=== PATIENT | male | born 1985 | race Caucasian/White ===

== ENCOUNTER 2021-07-15 16:44 | Emergency (ER) | payer OTHER, SELFPAY ==
[2021-07-15] VITALS (18 sets, daily range): BP systolic 112–146; BP diastolic 58–121; PULSE 77–106; RESP 18–20; TEMP 37.8; O2SAT 92–100
--- NOTE | ~2021-07-15 | CT_ITS ---
EXAMINATION: CT abdomen pelvis w con DATE: 07/15/2021 21:01 INDICATION: Left lower quadrant abdominal pain. TECHNIQUE: Computed tomography (CT) of the abdomen and pelvis was performed with 100 mL Omnipaque-350 intravenous contrast. Automated exposure control and iterative reconstruction technique were employe d. The dose-length product was 1582.45 mGy-cm. COMPARISON: None FINDINGS: Respiratory motion and minimal atelectasis at the lung bases. Heart size is normal. No pericardial or pleural effusion. Liver, gallbladder, spleen, pancreas, bilateral adrenal glands and kidneys are nor mal. Mild diverticulosis with prominent inflammatory stranding surrounding a diverticulum at the mid sigmoid colon consistent with diverticulitis. Small bowel and appendix are normal. Bladder is normal. No abscess or free intraperitoneal gas or fluid. No pathologically enlarged abdominal or pelvic lymp hadenopathy. Small bone island at the left femoral head. IMPRESSION: 1. Radiographically uncomplicated sigmoid diverticulitis. Reviewed, dictated and finalized at location A.
[2021-07-15 17:12] LABS: Basophils Absolute Auto 0.1 K/mm3 (0.0-0.1); Basophils Percent Auto 0.3 % (0.2-1.2); Eosinophils Absolute Auto 0.1 K/mm3 (0-0.3); Eosinophils Percent Auto 0.9 % (0-4.4); Hematocrit 45.5 % (42.0-52.0); Hemoglobin 15.9 g/dL (14.0-18.0); Immature Granulocyte Absolute 0.09 K/mm3 (0.00-0.031); Immature Granulocyte Percent A 0.6 % (0-0.5); Lymphocytes Absolute Auto 1.56 K/mm3 (0.9-3.2); Lymphocytes Percent Auto 9.9 % (18.3-44.2); Mean Corpuscular HGB Conc 34.9 g/dl (32-36); Mean Corpuscular Hemoglobin 30.1 pg (26-34); Mean Platelet Volume 11.3 fl (7.4-10.4); Monocytes Absolute Auto 1.2 K/mm3 (0.1-0.6); Monocytes Percent Auto 7.5 % (2.6-8.5); Neutrophils Absolute Auto 12.7 K/mm3 (1.3-6.7); Neutrophils Percent Auto 80.8 % (45.5-73.1); Platelet Count Result 169 k/mm3 (150-375); Red Blood Count 5.29 M/mm3 (4.6-6.20); Red Cell Distribution Width 12.4 % (11.5-14.5); White Blood Count 15.7 K/mm3 (4.5-10.0)
[2021-07-15 17:17] LABS: Alanine Aminotransferase 40 U/L (4-50); Alkaline Phosphatase 133 U/L (38-126); Anion Gap 13 mmol/L (8-16); Aspartate Amino Transferase 27 U/L (17-59); Bilirubin,Total 1.1 mg/dL (0.2-1.3); Blood Urea Nitrogen 17 mg/dL (9-20); Calcium 9.4 mg/dL (8.4-10.2); Carbon Dioxide 22 mmol/L (22-30); Chloride 105 mmol/L (98-107); Estimated CRCL calculation 101 ml/min; Estimated Glomerular Filt Rate > 60; Glucose 116 mg/dL (65-110); Lipase 126 U/L (23-300); Potassium 4.7 mmol/L (3.4-5.0); Sodium 140 mmol/L (137-145)
[2021-07-15 17:26] LABS: Add Urine Microscopic? NO; Appearance Urine Clear (Clear); Bilirubin Urine Negative (Negative); Blood Urine Negative (Negative); Color Urine Yellow (Yellow); Glucose Urine UA Negative (Negative); Ketones Urine Negative (Negative); Leukocyte Esterase Ur Negative LEU/UL (Negative); Nitrate Urine Negative (Negative); Protein Urine Negative (Negative); Specific Grav Ur 1.026 (1.001-1.035); Urobilinogen Urine Negative mg/dL (<2.0)
[2021-07-15] MEDS: LACTATED RINGERS 1,000 ML 999 ML IV CONT (21:33)
[2021-07-15] MEDS: ONDANSETRON INJ 4 MG/2 ML VIAL IV PUSH (21:33)
[2021-07-15] MEDS: KETOROLAC 30 MG/ML VIAL (*BKC) IV PUSH (21:33)
--- NOTE | 2021-07-15 21:46 | ED.ABDPAIN ---
HPI - Abdominal Pain General Chief Complaint: Abdominal Pain <Sloan Esparza MD - Last Filed: 07/16/21 11:11> Stated Complaint: lower abd pain <Sloan Esparza MD - Last Filed: 07/16/21 11:11> Time Seen by Provider: 07/15/21 19:19 <Sloan Esparza MD - Last Filed: 07/16/21 11:11> Source: patient <Sloan Esparza MD - Last Filed: 07/16/21 11:11> Mode of arrival: ambulatory <Sloan Esparza MD - Last Filed: 07/16/21 11:11> Limitations: no limitations <Sloan Esparza MD - Last Filed: 07/16/21 11:11> History of Present Illness HPI narrative: 35-year-old male Complains of a 1 day history of pain radiating across his lower abdomen Had a normal bowel movement this morning which did not relieve the symptoms They are worse if he moves around or if he leans over and better if he stretches out and lays flat No urinary symptoms He has subjective fevers No vomiting diarrhea or constipation No previous episodes or previous abdominal operations and is otherwise in good health <Sloan Esparza MD - Last Filed: 07/16/21 11:11> Related Data Allergies/Adverse Reactions: Allergies Allergy/AdvReac Type Severity Reaction Status Date / Time No Known Allergies Allergy Verified 07/15/21 23:59 <Sloan Esparza MD - Last Filed: 07/16/21 11:11> Review of Systems Review of Systems: All systems reviewed & are unremarkable except as noted in HPI and below <Sloan Esparza MD - Last Filed: 07/16/21 11:11> Constitutional: Constitutional: Reports no additional constitutional complaints, Reports chills, Reports fever(s) and Denies headache(s) <Sloan Esparza MD - Last Filed: 07/16/21 11:11> Eyes: Eyes: Reports no additional eye complaints and Denies change in vision <Sloan Esparza MD - Last Filed: 07/16/21 11:11> ENT: Denies headache(s) and Denies sore throat <Sloan Esparza MD - Last Filed: 07/16/21 11:11> Cardiovascular: Cardiovascular: Denies chest pain and Denies dyspnea <Sloan Esparza MD - Last Filed: 07/16/21 11:11> Respiratory: Respiratory: Denies cough and Denies dyspnea <Sloan Esparza MD - Last Filed: 07/16/21 11:11> Gastrointestinal: Gastrointestinal: Reports abdominal pain, Denies diarrhea and Denies vomiting <Sloan Esparza MD - Last Filed: 07/16/21 11:11> Genitourinary: Genitourinary: Denies dysuria and Denies urinary frequency <Sloan Esparza MD - Last Filed: 07/16/21 11:11> Musculoskeletal: Musculoskeletal: Denies deformity, Denies arthralgias, Denies joint swelling and Denies numbness <Sloan Esparza MD - Last Filed: 07/16/21 11:11> Integumentary/Breasts: Skin/Breast: Denies rash and Denies wounds <Sloan Esparza MD - Last Filed: 07/16/21 11:11> Neurologic: Denies headache(s), Denies focal weakness and Denies numbness <Sloan Esparza MD - Last Filed: 07/16/21 11:11> Psychiatric: Psychiatric: Reports no additional psychiatric complaints <Sloan Esparza MD - Last Filed: 07/16/21 11:11> Endocrine: Endocrine: Reports no additional endocrine complaints <Sloan Esparza MD - Last Filed: 07/16/21 11:11> Hematologic/Lymphatic: Hematologic/Lymphatic: Reports no additional hematologic/lymphatic complaints <Sloan Esparza MD - Last Filed: 07/16/21 11:11> Allergic/Immunologic: Allergic/Immunologic: Reports no additional allergic/immunologic complaints <Sloan Esparza MD - Last Filed: 07/16/21 11:11> Exam Const: General: cooperative and no acute distress <Sloan Esparza MD - Last Filed: 07/16/21 11:11> Orientation/consciousness: patient oriented x3 (alert) <Sloan Esparza MD - Last Filed: 07/16/21 11:11> HENMT: Head: normal to inspection, normocephalic and atraumatic <Sloan Esparza MD - Last Filed: 07/16/21 11:11> Ears: external ears normal <Sloan Esparza MD - Last Filed: 07/16/21 11:11> General nose exam: no epistaxis <Sloan Esparza MD - Last Filed: 07/16/21 11:11> Eyes: Conjunctivae: conjunctivae normal <Sloan Esparza MD - Last Filed: 07/16/21 11:1
[2021-07-15] MEDS: metroNIDAZOLE 500 MG/ISO 100ML 500 MG/100 ML BAG 100 MG IVPB (22:06)
[2021-07-16 00:07] VITALS: BP 114/70; PULSE 78; RESP 18; TEMP 37.2; O2SAT 100
== END 2021-07-16 00:22 | disposition home or self-care (01) ==
PROVIDERS: Emergency Medicine; Emergency Provider Emergency Medicine
DX: K57.32 Diverticulitis of large intestine without perforation or abscess without bleeding (principal)
CPT/HCPCS: 36415; 74177; 80053; 81003; 83690; 85025; 96365; 96366; 96367; 96375; 99284; J1885; J1956; J2405; J7120; Q9967

== ENCOUNTER 2021-12-08 08:28 | Inpatient (IN) | payer OTHER, SELFPAY ==
[2021-12-08] VITALS (48 sets, daily range): BP systolic 97–135; BP diastolic 40–76; PULSE 77–111; RESP 16–18; TEMP 36.6; O2SAT 95–100; BMI 40.0
--- NOTE | ~2021-12-08 | CT_ITS ---
EXAMINATION: CT abdomen pelvis wo con EXAM DATE: 12/11/2021 17:13 INDICATION: Abdomen pain . TECHNIQUE: Spiral CT of the abdomen and pelvis was performed without contrast. Axial, coronal and s agittal images of the abdomen and pelvis were reviewed. The dose-length product (DLP) for this exami [facility] was 1647.18 mGy-cm. The exposure was tailored according to patient size (auto mA exposure con trol), and iterative reconstruction (ASIR) was used as additional dose reduction technique. Compariso n is made to prior examination from 12/10/2021. FINDINGS: Again there is mesenteric inflammation and some punctate foci of extraluminal gas without g ross free intraperitoneal gas. Focal fluid pocket in the deep aspect of the mesentery measuring about 7 x 3 cm, measured on axial location -273 appears not significant changed. On axial location -323 th ere is another region which appears to be predominantly air-fluid pocket, probably a new abscess comp ared to prior study measuring about 8 x 3 cm, less likely a small bowel loop (this is a noncontrast s tudy). Probably sequela from perforated diverticulitis. Compared to yesterday, development of mild sm all bowel ileus. There is colonic fluid, diarrhea. There is mild splenomegaly. Trace perihepatic ascites. Some dense material within the gallbladder pr obably vicarious excretion of contrast from recent intravenous injection. No biliary obstruction thiago pected. Pancreas, adrenal glands are unremarkable. There is no hydronephrosis. Contrast within the re nal collecting system. The prostate is unremarkable. The bladder is unremarkable. There is no retro peritoneal or pelvic lymphadenopathy. The appendix is normal. Heart normal in size. Trace pericardial and pleural effusions. Bibasilar se gmental atelectasis. There are no osteoblastic or osteolytic lesions identified. IMPRESSION: 1. Findings consistent with perforated diverticulitis, with previously seen deep abscess unchanged b ut also suspicion of newly developed air-fluid level/abscess anteriorly. Measurements have been left for your review. No gross free intraperitoneal gas. 2. Development of ileus. Diarrhea. 3. Mild splenomegaly. Reviewed, dictated and finalized at location G. ING BABYSITTER IMPRESSION: 1. Findings consistent with perforated diverticulitis, with previously seen de ep abscess unchanged but also suspicion of newly developed air-fluid level/absc ess anteriorly. Measurements have been left for your review. No gross free intr aperitoneal gas. 2. Development of ileus. Diarrhea. 3. Mild splenomegaly.
--- NOTE | ~2021-12-08 | XR_ITS ---
XR abdomen NG/feed tube rechec INDICATION: Evaluate NG tube position. TECHNIQUE: Limited KUB perform for evaluating NG tube . COMPARISON: 12/14/2021 FINDINGS: NG tube tip in the stomach, side port above the GE junction. There are dilated small bowel loops in the upper abdomen. Small right pleural effusion.. IMPRESSION: 1: NG tube tip in the stomach, side port above the GE junction. Recommend advancement 4-5 cm. Reviewed, dictated and finalized at location B. ANICAL ADJUSTER IMPRESSION: 1: NG tube tip in the stomach, side port above the GE junction. Recommend adva ncement 4-5 cm.
--- NOTE | ~2021-12-08 | XR_ITS ---
XR abdomen obstructive series 12/13/2021 08:06 Indication: Bloating, nausea and vomiting Procedure: Supine and upright views of abdomen Comparison: No prior studies for comparison. Findings: There are dilated small bowel loops with air-fluid levels, consistent with small bowel obst ruction. The colon is relatively gasless. There is suggestion of free air in the left upper abdomen. There is bibasilar atelectasis. Impression: 1: Small bowel obstruction.. 2: Possible free intraperitoneal air left upper abdomen, which would correspond to known perforated d iverticulitis or recent surgery. Clinically correlate. Reviewed, dictated and finalized at location A. O GAME SCRIPT WRITER Impression: 1: Small bowel obstruction.. 2: Possible free intraperitoneal air left upper abdomen, which would correspond to known perforated diverticulitis or recent surgery. Clinically correlate.
--- NOTE | ~2021-12-08 | XR_ITS ---
EXAMINATION: XR chest 2V DATE: 12/09/2021 09:58 INDICATION: Abnormal abdominal CT TECHNIQUE: Frontal and lateral views of the chest are obtained COMPARISON: CT from yesterday FINDINGS: Minimal airspace opacities of the lung bases are unchanged. There is no pleural effusion or pneumothorax. The cardiomediastinal silhouette is normal. The visualized bones and soft tissues are unremarkable. IMPRESSION: 1. Stable bibasilar airspace opacities, consistent with atelectasis versus pneumonia. Reviewed, dictated and finalized at location A. TIAN BLIND MACHINE OPERATOR IMPRESSION: 1. Stable bibasilar airspace opacities, consistent with atelectasis versus pneu monia.
--- NOTE | ~2021-12-08 | US_ITS ---
EXAMINATION: US venous doppler [facility] DATE: 12/21/2021 11:45 INDICATION: Left forearm swelling. TECHNIQUE: Grayscale ultrasound images without and with compression and Doppler ultrasound images of the left upper extremity veins were obtained. COMPARISON: None. FINDINGS: The visualized portions of the left internal jugular vein, subclavian vein, axillary vein, brachial v eins, basilic vein, cephalic vein, radial vein, and ulnar vein are patent. There is a thrombosed supe rficial vein in the forearm. IMPRESSION: 1. No deep venous thrombosis. 2. Thrombosed superficial vein in the forearm. Reviewed, dictated and finalized at location A. SFER DRIVER
--- NOTE | ~2021-12-08 | XR_ITS ---
EXAMINATION: XR abdomen NG/feed tube insert DATE: 12/15/2021 12:55 INDICATION: Nasogastric tube insertion TECHNIQUE: A supine view of the abdomen and lower chest was obtained for evaluation of feeding tube placement. COMPARISON: 12/14/2021 FINDINGS: Nasogastric tube coiled at the fundus of the stomach. Persistent mildly dilated gas-filled loops of b owel in the upper abdomen consistent with ileus versus obstruction. Atelectasis linear opacities at t he bilateral lung bases and favor atelectasis over pneumonia. Heart size is normal. IMPRESSION: 1. Nasogastric tube in stomach. 2. Persistent ileus versus obstruction. Reviewed, dictated and finalized at location A. ND OF THE COURT
--- NOTE | ~2021-12-08 | CT_ITS ---
EXAMINATION: CT abdomen pelvis w con DATE: 12/08/2021 10:15 INDICATION: Epigastric abdominal pain, nausea. History of sigmoid diverticulitis TECHNIQUE: Computed tomography (CT) of the abdomen and pelvis was performed with 100 cc Omnipaque 350 intravenous contrast. Automated exposure control and iterative reconstruction technique were employe d. Exam dose: 1325.03 mGy-cm total exam DLP. COMPARISON: 07/15/2021 CT abdomen pelvis FINDINGS: There is lingular and bilateral lower lobe patchy infiltrate and/or atelectasis. 3.7 mm mid dle lobe nodular density (series 4 image 4). Normal heart size. No pericardial or pleural effusion. The liver, gallbladder, bile ducts, pancreas and pancreatic duct and adrenal glands appear normal. Th ere is splenomegaly, spleen measuring up to 17 cm vertical dimension. No renal mass lesion or urinary tract calculus or hydroureteronephrosis. The urinary bladder is unrem arkable. Normal caliber of the abdominal aorta. No intraperitoneal or retroperitoneal or pelvic mass lesion or adenopathy or ascites. Normal appendix. There is thickening of the wall of the mid sigmoid colon with prominent surrounding pericolic fat str anding, likely consistent with sigmoid diverticulitis. No drainable abscess cavity is identified. Dif ferential diagnosis includes less likely possibility of perforated sigmoid colon cancer. There is a small amount of fluid in the paracolic gutters, mesentery and dependent pelvis. Prostate calcifications. The urinary bladder is unremarkable. Small fat-containing umbilical hernia. No suspicious osteolytic or osteoblastic lesions. IMPRESSION: Lingular and bilateral lower lobe patchy infiltrate and/atelectasis 3.7 mm nonspecific middle lobe nodular density Splenomegaly Thickening of the wall of the mid sigmoid colon and prominent surrounding pericolic fat stranding, li ericka due to sigmoid diverticulitis. Less likely would be perforated sigmoid colon cancer. Prostate calcifications Reviewed, dictated and finalized at Location A. Reviewed, dictated and finalized at location B. CTIC DOCTOR IMPRESSION: Lingular and bilateral lower lobe patchy infiltrate and/atelectasi s 3.7 mm nonspecific middle lobe nodular density Splenomegaly Thickening of the wall of the mid sigmoid colon and prominent surrounding peric olic fat stranding, likely due to sigmoid diverticulitis. Less likely would be perforated sigmoid colon cancer. Prostate calcifications
--- NOTE | ~2021-12-08 | CT_ITS ---
EXAMINATION: CT abdomen pelvis w con INDICATION: Diverticulitis, abdominal pain TECHNIQUE: Computed tomographic images of the abdomen and pelvis were obtained after the administrati on of 100 cc of Omnipaque 350 intravenous contrast. The dose-length product (DLP) was 1457.99 mGy-cm. Automated exposure control and iterative reconstruction technique were employed. COMPARISON: 12/08/2021 FINDINGS: There are trace pleural effusions. Airspace opacities are present in the visualized lung ba ses. The heart size is normal. The enlarged spleen measures up to 17.4 cm. The liver, pancreas, gallb ladder, and adrenal glands are normal. The kidneys are unremarkable. No pathologically enlarged abdom inal or pelvic lymph nodes are identified. There is persistent wall thickening in the sigmoid colon. Wall thickening is developed and portions of the small bowel. There is an approximately 9.3 x 3.4 cm abscess of the small bowel mesentery. Free fluid is also seen elsewhere in the small bowel mesentery in the right lower quadrant. There is free intraperitoneal gas in the small bowel mesentery which tra cks into the right upper quadrant. There is a fat-containing umbilical hernia. IMPRESSION: 1. Persistent sigmoid diverticulitis with interval development of bowel perforation and abscess of th e small bowel mesentery measuring up to 9.3 cm. Surgical evaluation is recommended. These findings an d recommendations were discussed with Tara Rowan PA-C at 1312 hours on 12/10/2021. 2. Bibasilar airspace opacities, consistent with atelectasis versus pneumonia. Reviewed, dictated and finalized at location A. GENCY MEDICINE SPECIALIST IMPRESSION: 1. Persistent sigmoid diverticulitis with interval development of bowel perfora tion and abscess of the small bowel mesentery measuring up to 9.3 cm. Surgical evaluation is recommended. These findings and recommendations were discussed wi Tara Rowan PA-C at 1312 hours on 12/10/2021. 2. Bibasilar airspace opacities, consistent with atelectasis versus pneumonia.
--- NOTE | ~2021-12-08 | XR_ITS ---
XR abdomen NG/feed tube insert 12/14/2021 11:07 Indication: NG tube placement Procedure: KUB Comparison: 12/13/2021 Findings: NG tube tip in the esophagus. There are dilated small bowel loops with air-fluid levels, co nsistent with obstruction. There is bibasilar atelectasis. Impression: 1: NG tube tip in the esophagus. Recommend advancement. 2: Small bowel obstruction. Reviewed, dictated and finalized at location B. DING RIGGER Impression: 1: NG tube tip in the esophagus. Recommend advancement. 2: Small bowel obstruction.
--- NOTE | 2021-12-08 08:53 | ED.ABDPAIN ---
HPI - Abdominal Pain General Chief Complaint: Abdominal Pain Stated Complaint: abdominal pain Time Seen by Provider: 12/08/21 08:44 Source: patient Mode of arrival: ambulatory Limitations: no limitations History of Present Illness HPI narrative: Patient is a 36-year-old male complaining of abdominal pain, epigastric, and left lower quadrant, 6 out of 10, burning, nonradiating, accompanied by nausea started this morning. Patient has a history of diverticulitis. Patient denies any chest pain, shortness of breath, vomiting, diarrhea, fever or chills. Related Data Home Medications Medication Instructions Recorded Confirmed No Home Medications 12/08/21 12/08/21 Allergies Allergy/AdvReac Type Severity Reaction Status Date / Time No Known Allergies Allergy Verified 12/08/21 08:44 Review of Systems Review of Systems: All systems reviewed & are unremarkable except as noted in HPI and below Constitutional: Constitutional: Denies body ache(s), Denies chills, Denies excessive sweating, Denies fatigue, Denies fever(s), Denies headache(s), Denies lethargy, Denies malaise, Denies weakness and Denies weight loss Eyes: Eyes: Denies blurry vision, Denies change in vision and Denies loss of vision ENT: Denies dizziness, Denies ear discharge, Denies headache(s), Denies lip swelling, Denies epistaxis, Denies nasal congestion, Denies neck pain, Denies throat swelling and Denies tongue swelling Cardiovascular: Cardiovascular: Denies chest pain, Denies chest pain at rest, Denies chest pain with activity, Denies diaphoresis, Denies rapid heart rate, Denies edema, Denies irregular heart rhythm, Denies lightheadedness, Denies palpitations, Denies dyspnea and Denies dyspnea on exertion Respiratory: Respiratory: Denies chest congestion, Denies cough, Denies hemoptysis, Denies dyspnea and Denies dyspnea on exertion Gastrointestinal: Gastrointestinal: Denies melena, Denies hematochezia, Denies diarrhea, Denies nausea, Denies vomiting and Denies hematemesis Musculoskeletal: Musculoskeletal: Denies abnormal gait, Denies deformity, Denies joint swelling, Denies limited range of motion, Denies neck pain and Denies numbness Neurologic: Denies Abnormal speech present, Denies abnormal gait, Denies confusion, Denies dizziness, Denies headache(s), Denies focal weakness, Denies loss of vision, Denies numbness, Denies Other visual disturbances, Denies Sensory deficit (Neuro) and Denies weakness Psychiatric: Psychiatric: Denies confusion, Denies depression, Denies auditory hallucinations, Denies homicidal ideation and Denies suicidal ideation Endocrine: Endocrine: Denies cold intolerance, Denies excessive sweating, Denies fatigue, Denies heat intolerance and Denies palpitations Hematologic/Lymphatic: Hematologic/Lymphatic: Denies easy bleeding and Denies easy bruising Allergic/Immunologic: Allergic/Immunologic: Denies lip swelling, Denies throat swelling and Denies tongue swelling PMFSH Comments Past medical history: Diverticulitis Family history: Unknown Social history: Non-smoker no EtOH or drug use Exam Const: General: cooperative, healthy appearing, comfortable, no acute distress, well developed, alert and awake; No confusion Orientation/consciousness: oriented to person, oriented to place, oriented to time, patient oriented x3 and No confusion Limitations: no limitations HENMT: Head: normal to inspection, normocephalic and atraumatic Ears: hearing grossly normal bilaterally, TM normal on the right and TM normal on the left General nose exam: Normal external nose present, Normal nares present and No nasal discharge present Face and sinus: normal facial exam Mouth: Yes Normal oral and palatal mucosa present, Yes lip normal, Yes tongue normal and Yes oropharynx normal Throat: posterior oropharynx normal, tonsils normal and uvula midline Eyes: General: appearance normal, both eyes and all related structures Pupils: Equal, round and reactive pupils pre
[2021-12-08] MEDS: SODIUM CHLORIDE 0.9% IV 1,000 ML 999 ML IV CONT (09:04)
[2021-12-08 09:06] LABS: Basophils Absolute Auto 0.1 K/mm3 (0.0-0.1); Basophils Percent Auto 0.4 % (0.2-1.2); Eosinophils Absolute Auto 0.2 K/mm3 (0-0.3); Hematocrit 44.9 % (42.0-52.0); Hemoglobin 15.4 g/dL (14.0-18.0); Immature Granulocyte Absolute 0.06 K/mm3 (0.00-0.031); Immature Granulocyte Percent A 0.4 % (0-0.5); Lymphocytes Absolute Auto 1.84 K/mm3 (0.9-3.2); Mean Corpuscular HGB Conc 34.3 g/dl (32-36); Mean Corpuscular Hemoglobin 28.9 pg (26-34); Mean Corpuscular Volume 84.2 fl (80-100); Mean Platelet Volume 11.9 fl (7.4-10.4); Monocytes Absolute Auto 0.8 K/mm3 (0.1-0.6); Monocytes Percent Auto 5.1 % (2.6-8.5); Neutrophils Absolute Auto 12.4 K/mm3 (1.3-6.7); Neutrophils Percent Auto 81.1 % (45.5-73.1); Platelet Count Result 177 k/mm3 (150-375); Red Blood Count 5.33 M/mm3 (4.6-6.20); Red Cell Distribution Width 13.5 % (11.5-14.5); White Blood Count 15.3 K/mm3 (4.5-10.0)
[2021-12-08] MEDS: PROMETHAZINE HCL 25 MG/ML AMPUL 12.5 MG IV PUSH (09:20)
[2021-12-08] MEDS: KETOROLAC 30 MG/ML VIAL (*BKC) IV PUSH (09:20)
[2021-12-08 09:49] LABS: Alanine Aminotransferase 46 U/L (4-50); Albumin Level 3.9 g/dL (3.5-5.1); Alkaline Phosphatase 107 U/L (38-126); Anion Gap 7 mmol/L (8-16); Aspartate Amino Transferase 29 U/L (17-59); Bilirubin,Total 0.9 mg/dL (0.2-1.3); Blood Urea Nitrogen 12 mg/dL (9-20); Calcium 9.4 mg/dL (8.4-10.2); Carbon Dioxide 22 mmol/L (22-30); Chloride 108 mmol/L (98-107); Estimated CRCL calculation 113 ml/min; Estimated Glomerular Filt Rate > 60; Glucose 114 mg/dL (65-110); Lipase 118 U/L (23-300); Potassium 4.2 mmol/L (3.4-5.0); Sodium 137 mmol/L (137-145)
[2021-12-08 09:49] LABS: Alanine Aminotransferase 50 U/L (4-50); Albumin Level 4.3 g/dL (3.5-5.1); Alkaline Phosphatase 109 U/L (38-126); Anion Gap 8 mmol/L (8-16); Aspartate Amino Transferase 38 U/L (17-59); Blood Urea Nitrogen 12 mg/dL (9-20); Carbon Dioxide 21 mmol/L (22-30); Chloride 108 mmol/L (98-107); Estimated CRCL calculation 113 ml/min; Estimated Glomerular Filt Rate > 60; Glucose 111 mg/dL (65-110); Lipase 120 U/L (23-300); Potassium 4.5 mmol/L (3.4-5.0); Sodium 137 mmol/L (137-145)
[2021-12-08 10:27] LABS: Add Urine Microscopic? NO; Appearance Urine Clear (Clear); Bilirubin Urine Negative (Negative); Blood Urine Negative (Negative); Color Urine Yellow (Yellow); Glucose Urine UA Negative (Negative); Ketones Urine Negative (Negative); Leukocyte Esterase Ur Negative LEU/UL (Negative); Nitrate Urine Negative (Negative); Protein Urine Negative (Negative); Specific Grav Ur 1.027 (1.001-1.035); Urobilinogen Urine Negative mg/dL (<2.0)
[2021-12-08] MEDS: metroNIDAZOLE 500 MG/ISO 100ML 500 MG/100 ML BAG 100 MG IVPB (11:56)
[2021-12-08] MEDS: HYDROmorphone HCL INJ (*CRX) 1 MG/ML SYR IV PUSH (12:21)
[2021-12-08] MEDS: SODIUM CHLORIDE 0.9% IV 1,000 ML 999 ML (12:21)
[2021-12-08] MEDS: HYDROmorphone HCL INJ (*CRX) 1 MG/ML SYR 0.5 MG IV PUSH ×2 (15:46→20:48)
--- NOTE | 2021-12-08 16:37 | ADMGEN ---
This patient, Hernandez Clayton, was admitted to Medical Room 347-. Patient/family oriented to hospital policies and general routines including ID bracelet, bed and alarms, visiting hours, pain management, procedures, bathroom and other care routines, personal items, smoking policy, room service/diet, and visiting hours. Information on how to activate the Rapid Response Team has been discussed. Patient/Family are encouraged to report perceived risks to care and to ask questions if they do not understand what they are told or what they should do.
[2021-12-08] MEDS: SODIUM CHLORIDE 0.9% IV 1,000 ML 125 ML IV CONT (17:00)
--- NOTE | 2021-12-08 21:38 | PM.IMHP ---
H&P: HPI History of Present Illness Date/Time: 12/08/21 2100 this is a 36-year-old male patient who has had 2 other episodes of diverticulitis. The patient stated he has been taking a high-fiber diet and avoiding seeds. The patient stated that he woke up early this morning and had severe abdominal pain to the lower abdomen and the patient stated this was similar to his previous episode with diverticulitis. The patient stated his pain was 6/10 and he was also nauseated as well. He denies any fever chills or any chest pain. Abdominal pelvis CT was read as the following Lingular and bilateral lower lobe patchy infiltrate and/atelectasis 3.7 mm nonspecific middle lobe nodular density Splenomegaly Thickening of the wall of the mid sigmoid colon and prominent surrounding pericolic fat stranding, likely due to sigmoid diverticulitis. Less likely would be perforated sigmoid colon cancer. Prostate calcifications The patient was started on IV fluids, Toradol, Phenergan, Rocephin, Dilaudid, and Flagyl. The patient is being admitted to observation status on the date of service of 12/08/2021. Chief Complaint: Abdominal pain Review of Systems Review of Systems: All systems reviewed & are unremarkable except as noted in HPI and below Constitutional: Constitutional: Reports as per HPI and Reports no additional constitutional complaints Eyes: Eyes: Reports as per HPI and Reports no additional eye complaints ENT: Reports system reviewed and no additional complaints, except as documented and Reports Normal hearing present Cardiovascular: Cardiovascular: Reports no additional cardiovascular complaints Respiratory: Respiratory: Reports no additional respiratory complaints and Reports no additional respiratory complaints Gastrointestinal: Gastrointestinal: Reports as per HPI and Reports no additional gastrointestinal complaints Musculoskeletal: Musculoskeletal: Reports no additional musculoskeletal complaints Integumentary/Breasts: Skin/Breast: Reports system reviewed and no additional complaints, except as docu and Reports as per HPI Neurologic: Reports system reviewed and no additional complaints, except as documented, Reports as per HPI and Reports Normal hearing present Psychiatric: Psychiatric: Reports no additional psychiatric complaints and Reports as per HPI Endocrine: Endocrine: Reports no additional endocrine complaints Hematologic/Lymphatic: Hematologic/Lymphatic: Reports no additional hematologic/lymphatic complaints Allergic/Immunologic: Allergic/Immunologic: Reports no additional allergic/immunologic complaints [facility] Past Medical History Medical History (Updated 12/08/21 @ 21:41 by Mya Conte NP) History of diverticulosis Surgical History Surgical History (Updated 12/08/21 @ 21:41 by Mya Conte NP) History of tonsillectomy Family History Family History Mother Diabetes mellitus Other Chronic obstructive pulmonary disease Social History Social History (Updated 12/08/21 @ 21:43 by Mya Conte NP) Social History: The patient lives with his who is a director surgical here. She is his durable power consumer attorney for healthcare. The patient has 3 children. He is currently employed at [employer] and is a former smoker. Socially drinks alcohol. Code status full code Smoking packs per day: 2 Smoking cigarettes per day: 40.0 Years smoked: 5 Smoking pack-years: 10.00 Smoking status: Former smoker Tobacco type: cigarettes Second hand tobacco smoke exposure: Yes Alcohol intake: current Drinks per week: 2 Substance use: never Spiritual care concerns: No Meds Home Medications and Allergies Home Medications Medication Instructions Recorded Confirmed Type No Home Medications 12/08/21 12/08/21 History Allergies Allergy/AdvReac Type Severity Reaction Status Date / Time No Known Allergies Allergy Veri
[2021-12-09] MEDS: HYDROmorphone HCL INJ (*CRX) 1 MG/ML SYR 0.5 MG IV PUSH ×6 (01:32→23:51)
[2021-12-09] MEDS: SODIUM CHLORIDE 0.9% IV 1,000 ML 125 ML IV CONT ×2 (01:32→08:19)
[2021-12-09] MEDS: KETOROLAC 15 MG/ML VIAL (*BKC) IV PUSH ×2 (03:54→11:51)
[2021-12-09 05:53] LABS: Basophils Percent Auto 0.3 % (0.2-1.2); Eosinophils Percent Auto 0.1 % (0-4.4); Hematocrit 37.7 % (42.0-52.0); Hemoglobin 12.7 g/dL (14.0-18.0); Immature Granulocyte Percent A 0.7 % (0-0.5); Lymphocytes Absolute Auto 1.72 K/mm3 (0.9-3.2); Lymphocytes Percent Auto 12.3 % (18.3-44.2); Mean Corpuscular HGB Conc 33.7 g/dl (32-36); Mean Corpuscular Hemoglobin 28.9 pg (26-34); Mean Corpuscular Volume 85.7 fl (80-100); Mean Platelet Volume 11.4 fl (7.4-10.4); Monocytes Absolute Auto 0.8 K/mm3 (0.1-0.6); Monocytes Percent Auto 5.8 % (2.6-8.5); Neutrophils Absolute Auto 11.4 K/mm3 (1.3-6.7); Neutrophils Percent Auto 80.8 % (45.5-73.1); Platelet Count Result 124 k/mm3 (150-375); Red Cell Distribution Width 13.3 % (11.5-14.5)
[2021-12-09 05:57] LABS: Alanine Aminotransferase 35 U/L (4-50); Albumin Level 3.5 g/dL (3.5-5.1); Alkaline Phosphatase 73 U/L (38-126); Anion Gap 8 mmol/L (8-16); Aspartate Amino Transferase 22 U/L (17-59); Bilirubin,Total 2.7 mg/dL (0.2-1.3); Blood Urea Nitrogen 11 mg/dL (9-20); Calcium 8.3 mg/dL (8.4-10.2); Carbon Dioxide 22 mmol/L (22-30); Chloride 103 mmol/L (98-107); Estimated CRCL calculation 98 ml/min; Estimated Glomerular Filt Rate > 60; Glucose 115 mg/dL (65-110); Lactate Dehydrogenase 377 U/L (313-618); Magnesium 1.3 mg/dL (1.6-2.3); Potassium 3.8 mmol/L (3.4-5.0); Sodium 133 mmol/L (137-145)
[2021-12-09 05:58] LABS: Lactic Acid Reflex 0.7 mmol/L (0.7-2.1)
[2021-12-09 06:36] VITALS: BP 113/65; PULSE 103; RESP 17; TEMP 36.2; O2SAT 95
[2021-12-09] MEDS: FAMOTIDINE 20 MG/2 ML VIAL IV PUSH ×2 (08:19→20:29)
[2021-12-09] MEDS: MAGNESIUM SULF 2 GM/WATER 50ML 2 GM/50 ML BAG IVPB (10:32)
--- NOTE | 2021-12-09 13:09 | PM.IMPN ---
Progress Note: A&P Assessment and Plan (1) Acute diverticulitis: Code(s): K57.92 - Diverticulitis of intestine, part unspecified, without perforation or abscess without bleeding Status: Acute Assessment and Plan: History of diverticulitis presented with diffuse abdominal pain CT abdomen/pelvis showed thickening of the mid sigmoid colon wall and prominent pericolic fat stranding related to sigmoid diverticulitis Continue IV Zosyn Continue IV fluids WBC improving Advance to clear liquid diet Supportive care. Analgesics and anti in available as needed. CT findings most likely to be consistent with diverticulitis though perforated sigmoid colon cancer cannot be ruled out. Discussed with the patient that he will need colonoscopy upon resolution of acute episode of diverticulitis for further evaluation. He has never had a colonoscopy before (2) Abnormal CXR: Code(s): R93.89 - Abnormal findings on diagnostic imaging of other specified body structures Status: Acute Assessment and Plan: CT on presentation showed patchy infiltrates of the bilateral lower lobes and CXR showed stable bibasilar airspace opacities Clinical presentation not consistent with pneumonia. Patient is asymptomatic Findings likely related to atelectasis. Incentive spirometry to be provided (3) Hypomagnesemia: Code(s): E83.42 - Hypomagnesemia Status: Acute Assessment and Plan: Magnesium 1.3 this morning Administer 2 g IV magnesium sulfate Continue to monitor Subjective Date/time seen: 12/09/21 13:09 Interval history: Date of service: 12/09/2021 Hernandez Clayton is a 36 year old male with a history of diverticulitis who is seen in follow up for an episode of acute diverticulitis. The patient states this first started in Jun 2021 when he was seen in the ED and diagnosed with diverticultis. He was discharged with a week course of antibiotics that he completed about half of and did not have follow up care. In September 2021 he had another episode and took the rest of the antibiotics from his first episode. His symptoms improved and he did not seek care. He has changed his diet and removed nuts and seeds. He also notes that he was implemented dietary and lifestyle changes and has lost about 30 lbs. Now his symptoms have returned. He endorses diffuse abdominal pain from the epigastric region down to his waist line. He rates his pain as 7-9/10. It has not improved from a 7 since admission. He notes no improvement in his symptoms today. He had one episode of diarrhea today. No blood in his stool. He has been having ice chips and tolerating this well but states he is scared to eat or drink anything due to the pain. He has been having episodes of feeling hot and diffuse sweating throughout the day. He does not feel feverish. Denies chills or rigors. He denies nausea or vomiting. He has difficulty getting out of bed because the movement causes abdominal pain. He is also not able to take deep breaths due to the pain. He has been able to get up and walk to the bathroom. He denies dizziness or lightheadedness with ambulation. No chest pain or palpitations. He denies shortness of breath, cough. Denies sick contacts. Completed his COVID vaccination. Review of Systems Review of Systems: All systems reviewed & are unremarkable except as noted in HPI and below Exam Narrative: General: Well-nourished, well-appearing 36 year-old male, sitting up in bed, appears uncomfortable, NARD, diaphoretic Neuro: awake, alert and oriented x4, speech clear, no focal neuro deficits noted HEENMT: normocephalic, atraumatic, EOMI, sclerae anicteric, moist oral mucosa Respiratory: clear to auscultation bilaterally, nonlabored breathing Cardio: regular rate, regular rhythm with S1-S2 Abdomen: nondistended, normoactive bowel sounds, soft, diffusely tender to light palpation, no rigidity or guarding Extremities: no edema, erythema, or te
[2021-12-09 14:00] VITALS: BP 135/77; PULSE 109; RESP 16; TEMP 36.8; O2SAT 96
[2021-12-09] MEDS: HYDROcodone/acetaminophen (*CRX) 5-325 MG TABLET 1 TAB PO ×2 (14:33→20:29)
[2021-12-09] MEDS: SODIUM CHLORIDE 0.9% IV 1,000 ML 100 ML IV CONT (18:25)
[2021-12-09 20:29] VITALS: RESP 18; O2SAT 94
[2021-12-09 21:21] VITALS: BP 124/72; PULSE 120; RESP 17; TEMP 37.1; O2SAT 94
[2021-12-10] MEDS: HYDROcodone/acetaminophen (*CRX) 5-325 MG TABLET 1 TAB PO ×4 (00:51→13:02)
[2021-12-10] MEDS: HYDROmorphone HCL INJ (*CRX) 1 MG/ML SYR 0.5 MG IV PUSH ×2 (04:06→08:17)
[2021-12-10] MEDS: SODIUM CHLORIDE 0.9% IV 1,000 ML 100 ML IV CONT ×2 (05:24→17:47)
[2021-12-10 05:32] VITALS: BP 128/74; PULSE 104; RESP 18; TEMP 37.7; O2SAT 94
[2021-12-10 05:57] LABS: Hematocrit 36.9 % (42.0-52.0); Hemoglobin 12.4 g/dL (14.0-18.0); Immature Platelet Fraction Pct 4.7 % (0.9-11.2); Mean Corpuscular HGB Conc 33.6 g/dl (32-36); Mean Corpuscular Volume 86.4 fl (80-100); Mean Platelet Volume 11.2 fl (7.4-10.4); Platelet Count Result 120 k/mm3 (150-375); Red Blood Count 4.27 M/mm3 (4.6-6.20); Red Cell Distribution Width 13.3 % (11.5-14.5); White Blood Count 10.9 K/mm3 (4.5-10.0)
[2021-12-10 06:02] LABS: Anion Gap 6 mmol/L (8-16); Blood Urea Nitrogen 8 mg/dL (9-20); Calcium 8.4 mg/dL (8.4-10.2); Carbon Dioxide 22 mmol/L (22-30); Chloride 104 mmol/L (98-107); Estimated CRCL calculation 107 ml/min; Estimated Glomerular Filt Rate > 60; Glucose 116 mg/dL (65-110); Sodium 132 mmol/L (137-145)
[2021-12-10] MEDS: FAMOTIDINE 20 MG/2 ML VIAL IV PUSH ×2 (09:31→20:07)
--- NOTE | 2021-12-10 10:48 | PM.IMPN ---
Progress Note: A&P Assessment and Plan (1) Acute diverticulitis: Code(s): K57.92 - Diverticulitis of intestine, part unspecified, without perforation or abscess without bleeding Status: Acute Assessment and Plan: History of diverticulitis presented with diffuse abdominal pain CT abdomen/pelvis showed thickening of the mid sigmoid colon wall and prominent pericolic fat stranding related to sigmoid diverticulitis Continue IV Zosyn Continue IV fluids He has had no symptomatic improvement following 2 days of IV antibiotics therefore will repeat CT a/p today with contrast WBC improving, 10.9 today Clear liquid diet Supportive care. Analgesics and antiemeetics available as needed. CT findings most likely to be consistent with diverticulitis though perforated sigmoid colon cancer cannot be ruled out. Discussed with the patient that he will need colonoscopy upon resolution of acute episode of diverticulitis for further evaluation. He has never had a colonoscopy before Updated: Received call from radiologist, Dr. Johns regarding repeat CT findings. CT shows persistent sigmoid diverticulitis with interval development of bowel perforation and abscess of the small bowel mesentery measuring 9.3 x 3.4 cm. I spoke with general surgeon, Dr. Aguirre, who will evaluate the patient. NPO diet. Patient and updated on findings. (2) Abnormal CXR: Code(s): R93.89 - Abnormal findings on diagnostic imaging of other specified body structures Status: Acute Assessment and Plan: CT on presentation showed patchy infiltrates of the bilateral lower lobes and CXR showed stable bibasilar airspace opacities Clinical presentation not consistent with pneumonia. Patient is asymptomatic Findings likely related to atelectasis. Continue incentive spirometry (3) Hypomagnesemia: Code(s): E83.42 - Hypomagnesemia Status: Acute Assessment and Plan: Resolved. Magnesium 2.0 today Continue to monitor Subjective Date/time seen: 12/10/21 10:48 Interval history: Date of service: 12/10/2021 Hernandez Clayton is a 36 year old male with a history of diverticulitis who is seen in follow up for an episode of acute diverticulitis. He has had no improvement today. He continues to endorse severe diffuse abdominal pain that is worst in his right lower quadrant. He endorses abdominal fullness and feels significantly bloated. He also describes abdominal soreness/tenderness that is worse with any and all movements, deep breaths, or coughing. He is not able to take a full breath because this causes abdominal pain. He denies fever or chills. He has been able to tolerate clear liquids. He has had Jello and an ice pop. He did not have any worsening of his symptoms after introducing liquids. His pain has been poorly controlled. Denies dizziness or lightheadedness. Denies nausea or vomiting. Still endorsing sweats but feels this has improved. He denies palpitations. No chest pain. The patient's , Carol, was visiting earlier and I received a call from the RN that she had questions. She unfortunately had to leave before I was able to see the patient so I spoke with her on the phone to provide updates and answer questions. Review of Systems Review of Systems: All systems reviewed & are unremarkable except as noted in HPI and below Exam Narrative: General: Well-nourished, well-appearing 36 year-old male, sitting up in bed, appears uncomfortable, NARD Neuro: awake, alert and oriented x4, speech clear, no focal neuro deficits noted HEENMT: normocephalic, atraumatic, EOMI, sclerae anicteric, moist oral mucosa Respiratory: clear to auscultation bilaterally, nonlabored breathing, no conversational dyspnea, taking shallow breaths Cardio: regular rate, regular rhythm with S1-S2 Abdomen: protuberant, normoactive bowel sounds, soft, diffusely tender to light palpation, no rigidity or guarding Extremities: no edema,
[2021-12-10 11:08] VITALS: BMI 40.0
[2021-12-10] MEDS: HYDROmorphone HCL INJ (*CRX) 1 MG/ML SYR IV PUSH ×4 (11:50→22:37)
[2021-12-10 14:19] VITALS: BP 143/77; PULSE 110; RESP 18; TEMP 36.1; O2SAT 94
--- NOTE | 2021-12-10 15:19 | PM.CNGS ---
Assessment and Plan Assessment and plan (1) Perforation of sigmoid colon due to diverticulitis: Code(s): K57.20 - Diverticulitis of large intestine with perforation and abscess without bleeding Status: Acute Assessment and Plan: imaging reviewed c radiologist, seems like microperforation c some mild free fluid (no obvious abscess formed), cont conservative mgmt c IV abx, IV analgesia, serial exams/labs, d/w pt and need for emergent surgical intervention if no improvement and/or worsening History of Present Illness Consult details Consult date: 12/10/21 Reason for consult: abdominal pain Requesting physician: Tara Rowan PA-C Narrative: The patient is a 36-year-old male with a history of diverticulitis presenting to the hospital complaining of severe lower abdominal pain, right greater than left. The patient reports his 1st episode of diverticulitis started in June and he was treated with antibiotics. The patient report he admittedly did not finish the course of antibiotics that was prescribed. The patient reports over the last few months he continued to have intermittent pain in his lower abdomen. The patient reports a 30 lb weight loss since June. The patient re-presented to the hospital early this week with worsening pain. The patient had imaging consistent with uncomplicated acute diverticulitis. The patient reports since admission he has continued to have severe pain. Repeat imaging today is significant for micro perforation. Review of Systems Review of Systems: All systems reviewed & are unremarkable except as noted in HPI and below Constitutional: Constitutional: Reports as per HPI, Reports anorexia, Reports chills, Reports excessive sweating, Reports fatigue, Reports fever(s), Reports lethargy, Reports night sweats, Reports poor appetite, Reports weakness and Reports weight loss Eyes: Eyes: Reports no additional eye complaints ENT: Reports system reviewed and no additional complaints, except as documented Cardiovascular: Cardiovascular: Reports no additional cardiovascular complaints Respiratory: Respiratory: Reports no additional respiratory complaints Gastrointestinal: Gastrointestinal: Reports as per HPI, Reports abdominal pain, Reports bloating, Reports change in stool character, Reports early satiety, Reports loose stools, Reports nausea and Denies vomiting Genitourinary: Genitourinary: Reports no additional male genitourinary complaints Musculoskeletal: Musculoskeletal: Reports no additional musculoskeletal complaints Integumentary/Breasts: Skin/Breast: Reports system reviewed and no additional complaints, except as docu Neurologic: Reports system reviewed and no additional complaints, except as documented Psychiatric: Psychiatric: Reports no additional psychiatric complaints Endocrine: Endocrine: Reports no additional endocrine complaints Hematologic/Lymphatic: Hematologic/Lymphatic: Reports no additional hematologic/lymphatic complaints Allergic/Immunologic: Allergic/Immunologic: Reports no additional allergic/immunologic complaints [facility] Past Medical History Medical History History of diverticulosis Surgical History Surgical History History of tonsillectomy Family History Family History Mother Diabetes mellitus Other Chronic obstructive pulmonary disease Social History Social History Social History: The patient lives with his who is a audit tech here. She is his durable power energy attorney for healthcare. The patient has 3 children. He is currently employed at [employer] and is a former smoker. Socially drinks alcohol. Code status full code Smoking packs per day: 2 Smoking cigarettes per day: 40.0 Years smoked: 5 Smo
[2021-12-10] MEDS: KETOROLAC 15 MG/ML VIAL (*BKC) IV PUSH ×2 (16:11→21:49)
[2021-12-10] MEDS: LORazepam INJ (*CRX) 2 MG/ML VIAL 1 MG IV PUSH (16:11)
[2021-12-10] MEDS: metroNIDAZOLE 250MG/ISO 50 ML 250 MG/50 ML BAG 50 MG IVPB ×2 (17:47→22:36)
[2021-12-10 20:08] VITALS: RESP 20; O2SAT 94
[2021-12-10 20:29] VITALS: PULSE 100; O2SAT 91
[2021-12-10 21:21] VITALS: BP 109/61; PULSE 98; RESP 20; TEMP 37.2; O2SAT 94
[2021-12-11] MEDS: HYDROcodone/acetaminophen (*CRX) 5-325 MG TABLET 1 TAB PO ×2 (01:50→13:52)
[2021-12-11] MEDS: KETOROLAC 15 MG/ML VIAL (*BKC) IV PUSH ×4 (03:32→21:21)
--- NOTE | 2021-12-11 03:45 | PC.NURSE ---
During commuter down time [place] 5-325 administered for a pain of 6 at 0150 and reassessed at 0250 and piperacillin was administered at 0225 and completed at 0255.
[2021-12-11] MEDS: metroNIDAZOLE 250MG/ISO 50 ML 250 MG/50 ML BAG 50 MG IVPB ×4 (04:54→21:57)
[2021-12-11 06:47] VITALS: BP 127/65; PULSE 90; RESP 20; TEMP 35.7; O2SAT 97
[2021-12-11] MEDS: SODIUM CHLORIDE 0.9% IV 1,000 ML 100 ML IV CONT (07:01)
[2021-12-11] MEDS: HYDROmorphone HCL INJ (*CRX) 1 MG/ML SYR IV PUSH ×2 (07:17→11:55)
[2021-12-11 07:40] LABS: Hematocrit 38.5 % (42.0-52.0); Hemoglobin 12.7 g/dL (14.0-18.0); Immature Platelet Fraction Pct 6.4 % (0.9-11.2); Mean Corpuscular Hemoglobin 29.1 pg (26-34); Mean Corpuscular Volume 88.1 fl (80-100); Mean Platelet Volume 11.1 fl (7.4-10.4); Platelet Count Result 135 k/mm3 (150-375); Red Blood Count 4.37 M/mm3 (4.6-6.20); Red Cell Distribution Width 13.4 % (11.5-14.5)
[2021-12-11 07:48] LABS: Alanine Aminotransferase 18 U/L (4-50); Albumin Level 3.5 g/dL (3.5-5.1); Alkaline Phosphatase 77 U/L (38-126); Anion Gap 7 mmol/L (8-16); Aspartate Amino Transferase 15 U/L (17-59); Bilirubin,Total 1.5 mg/dL (0.2-1.3); Blood Urea Nitrogen 11 mg/dL (9-20); Calcium 8.8 mg/dL (8.4-10.2); Carbon Dioxide 25 mmol/L (22-30); Chloride 105 mmol/L (98-107); Estimated CRCL calculation 117 ml/min; Estimated Glomerular Filt Rate > 60; Glucose 109 mg/dL (65-110); Magnesium 2.1 mg/dL (1.6-2.3); Potassium 3.8 mmol/L (3.4-5.0); Sodium 137 mmol/L (137-145)
--- NOTE | 2021-12-11 08:49 | PM.PNGS ---
Progress Note: A&P Assessment and Plan (1) Perforation of sigmoid colon due to diverticulitis: Code(s): K57.20 - Diverticulitis of large intestine with perforation and abscess without bleeding Status: Acute Assessment and Plan: improved today, ADAT to low fiber diet, encourage OOB, cont abx Subjective Subjective Date/Time Seen: 12/11/21 08:49 feels better, yaima clears, decreased pain, +bowel fxn Review of Systems Review of Systems: All systems reviewed & are unremarkable except as noted in HPI and below Exam Const: General: cooperative, comfortable and no acute distress Nutritional Appearance: obese Orientation/consciousness: patient oriented x3 Limitations: no limitations Resp: Auscultation: clear to auscultation bilaterally Cardio: Rate: regular rate Rhythm: regular rhythm GI: Inspection: normal to inspection and distended GI Palp: Yes Soft to palpation, Yes Tenderness to palpation present (GI), No Guarding due to palpation present (GI) and No Rigid due to palpation Other: decreased TTP RLQ Objective Data Vital Signs Vital Signs: Vital Signs - 24 hr 12/10/21 14:19 12/10/21 20:08 12/10/21 20:29 Temperature 36.1 C L Pulse Rate 110 H 100 Respiratory Rate 18 20 Blood Pressure 143/77 H Pulse Oximetry 94 94 91 12/10/21 21:21 12/11/21 06:47 Temperature 37.2 C 35.7 C L Pulse Rate 98 90 Respiratory Rate 20 20 Blood Pressure 109/61 127/65 Pulse Oximetry 94 97 Intake/Output Intake/Output: Intake & Output 12/08/21 12/09/21 12/10/21 12/11/21 23:59 23:59 23:59 23:59 Intake Total 2200 3840 2620 1100 Output Total 1400 1100 Balance 2200 2440 1520 1100 Meds/Results Medications: Active Medications Generic Name Dose Route Start Last Admin Trade Name Freq PRN Reason Stop Dose Admin Acetaminophen 650 mg 12/09/21 13:33 Acetaminophen 325 Mg Tablet PO Q4H PRN Pain 1-3 Hydrocodone Bitart/Acetaminophen 1 tab 12/09/21 13:33 12/11/21 01:50 Hydrocodone/Acetaminophen (*Crx) 5-325 Mg Tablet PO 1 tab Q4H PRN Administration Pain Rated 4-6 Famotidine 20 mg 12/09/21 09:00 12/10/21 20:07 Famotidine 20 Mg/2 Ml Vial IV PUSH 20 mg Q12HR ANDREW Administration Hydromorphone HCl 1 mg 12/10/21 10:48 12/11/21 07:17 Hydromorphone Hcl Inj (*Crx) 1 Mg/Ml Syr IV PUSH 1 mg Q3H PRN Administration Pain Rated 7-10 Sodium Chloride 1,000 mls @ 100 mls/hr 12/08/21 14:45 12/11/21 07:01 Normal Saline Iv IV CONT 100 mls/hr .Q10H ANDREW Administration Piperacillin/Tazobactam/Dextrose 3.375 gm in 50 mls @ 100 mls/hr 12/08/21 21:00 12/11/21 02:55 Zosyn 3.375 Gm/D5w 50ml Pm IVPB Infused Q6H ANDREW Infusion Metronidazole 250 mg in 50 mls @ 50 mls/hr 12/10/21 17:00 12/11/21 05:55 Flagyl 250 Mg/Iso Soln 50 Ml IVPB Infused Q6H ANDREW Infusion Ketorolac Tromethamine 15 mg 12/10/21 16:00 12/11/21 03:32 Ketorolac 15 Mg/Ml Vial (*Bkc) IV PUSH 15 mg Q6H ANDREW Administration Lorazepam 1 mg 12/10/21 15:19 12/10/21 16:11 Lorazepam Inj (*Crx) 2 Mg/Ml Vial IV PUSH 1 mg Q6H PRN Administration Anxiety Ondansetron HCl 4 mg 12/08/21 21:49 Ondansetron Inj 4 Mg/2 Ml Vial IV PUSH Q4H PRN Nausea And Vomiting Radiology Results: ITS Impressions Chest X-Ray 12/09/21 09:59 IMPRESSION: 1. Stable bibasilar airspace opacities, consistent with atelectasis versus pneumonia. Abdomen/Pelvis CT 12/10/21 12:57 IMPRESSION: 1. Persistent sigmoid diverticulitis with interval development of bowel perforation and abscess of the small bowel mesentery measuring up to 9.3 cm. Surgical evaluation is recommended. These findings and recommendations were discussed with Tara Rowan PA-C at 1312 hours on 12/10/2021. 2. Bibasilar airspace opacities, consistent with atelectasis versus pneumonia. Labs Labs: Laboratory Results - last 24 hr 12/11/21 12/11/21 07:13 07:13 WBC 11.0 H RBC 4.37 L
[2021-12-11] MEDS: FAMOTIDINE 20 MG/2 ML VIAL IV PUSH ×2 (09:34→21:21)
[2021-12-11 14:00] VITALS: O2SAT 99
[2021-12-11 14:15] VITALS: BP 129/75; PULSE 96; RESP 20; TEMP 37.1; O2SAT 99
[2021-12-11] MEDS: LORazepam INJ (*CRX) 2 MG/ML VIAL 1 MG IV PUSH ×2 (16:15→21:57)
--- NOTE | 2021-12-11 16:33 | PM.IMPN ---
Progress Note: A&P Assessment and Plan (1) Perforation of sigmoid colon due to diverticulitis: Code(s): K57.20 - Diverticulitis of large intestine with perforation and abscess without bleeding Status: Acute Assessment and Plan: History of diverticulitis presented with diffuse abdominal pain CT abdomen/pelvis showed thickening of the mid sigmoid colon wall and prominent pericolic fat stranding related to sigmoid diverticulitis Continue IV Zosyn. Metronidazole added on 12/10/2021 Will discontinue IV fluids as patient is tolerating p.o. intake Repeat CT scan on 12/10/2021 given lack of improvement showed interval development of bowel perforation abscess of the small bowel mesentery Appreciate general surgery consultation Diet has been advanced. He is tolerating low-fiber. Remains afebrile. White blood cell count overall improved He will need outpatient colonoscopy upon resolution of acute episode of diverticulitis for further evaluation (2) Abnormal CXR: Code(s): R93.89 - Abnormal findings on diagnostic imaging of other specified body structures Status: Acute Assessment and Plan: CT on presentation showed patchy infiltrates of the bilateral lower lobes and CXR showed stable bibasilar airspace opacities Clinical presentation not consistent with pneumonia. Patient is asymptomatic Findings likely related to atelectasis. Continue incentive spirometry (3) Hypomagnesemia: Code(s): E83.42 - Hypomagnesemia Status: Acute Assessment and Plan: Resolved. Magnesium 2.1 today Continue to monitor Subjective Date/time seen: 12/11/21 16:33 Interval history: Date of service: 12/11/2021 Hernandez Clayton is a 36 year old male with a history of diverticulitis who is seen in follow up for an episode of acute diverticulitis. He is still having very significant pain today. He describes stabbing right lower quadrant pain that he rates as 10/10. Improves briefly with medication and then returns just as severe. He feels that his abdominal bloating has resolved today. He denies fever or chills. Continues to endorse sweats but feels that overall this has improved. He had a runny episode of diarrhea today. Denies blood in his stool. Feels like he is able to take deeper breaths today. He has been getting up and walking to the bathroom, though he notes this does cause rather significant pain as well. He has been trying to drink more fluids and tolerating this well. He did have a low-fat diet today and had no issues with this. He denies chest pain or palpitations. Denies urinary symptoms Review of Systems Review of Systems: All systems reviewed & are unremarkable except as noted in HPI and below Exam Narrative: General: Well-nourished, well-appearing 36 year-old male, sitting up in bed, appears uncomfortable, NARD Neuro: awake, alert and oriented x4, speech clear, no focal neuro deficits noted HEENMT: normocephalic, atraumatic, EOMI, sclerae anicteric, moist oral mucosa Respiratory: clear to auscultation bilaterally, nonlabored breathing Cardio: regular rate, regular rhythm with S1-S2 Abdomen: Nondistended, normoactive bowel sounds, soft, RUQ tenderness Extremities: no edema, erythema, or tenderness to palpation, DP pulses 2+ bilaterally Skin: no rashes or lesions, warm and dry Psych: appropriate mood and affect, judgment and insight intact Objective Data Vital Signs Vital Signs: Vital Signs - 24 hr 12/10/21 20:08 12/10/21 20:29 12/10/21 21:21 Temperature 98.9 F Pulse Rate 100 98 Respiratory Rate 20 20 Blood Pressure 109/61 Pulse Oximetry 94 91 94 12/11/21 06:47 12/11/21 14:00 12/11/21 14:15 Temperature 96.3 F L 98.7 F Pulse Rate 90 96 Respiratory Rate 20 20 Blood Pressure 127/65 129/75 Pulse Oximetry 97 99 99 Intake/Output Intake/Output: Intake & Output 12/08/21 12/09/21 12/10/21 12/11/21 23:59 23:59 23:59 23:59 Intake Total 0847 4000
[2021-12-11] MEDS: POTASSIUM CHLORIDE INJ 10 MEQ in DEXTROSE 5%/0.45% SOD CHL 1,000 ML 125 MEQ IV CONT (17:39)
[2021-12-11] MEDS: MORPHINE SULFATE (*CRX) 4 MG/ML INJ IV PUSH (17:39)
[2021-12-11] MEDS: DEXTROSE 5%/0.45% SOD CHL 1,000 ML 125 ML (18:25)
[2021-12-11 19:45] VITALS: PULSE 96; O2SAT 100
[2021-12-11 21:06] VITALS: BP 109/69; PULSE 91; RESP 17; TEMP 37.4; O2SAT 98
[2021-12-12] MEDS: HYDROmorphone HCL INJ (*CRX) 1 MG/ML SYR IV PUSH ×5 (01:19→20:10)
[2021-12-12] MEDS: ONDANSETRON INJ 4 MG/2 ML VIAL IV PUSH ×3 (01:21→12:53)
[2021-12-12] MEDS: POTASSIUM CHLORIDE INJ 10 MEQ in DEXTROSE 5%/0.45% SOD CHL 1,000 ML 125 MEQ IV CONT ×2 (02:35→12:52)
[2021-12-12] MEDS: KETOROLAC 15 MG/ML VIAL (*BKC) IV PUSH ×4 (03:15→23:01)
[2021-12-12] MEDS: metroNIDAZOLE 250MG/ISO 50 ML 250 MG/50 ML BAG 50 MG IVPB ×4 (04:39→20:12)
[2021-12-12 05:46] VITALS: BP 120/67; PULSE 79; RESP 17; TEMP 37.1; O2SAT 99
[2021-12-12 05:56] LABS: Hemoglobin 12.8 g/dL (14.0-18.0); Mean Corpuscular HGB Conc 33.7 g/dl (32-36); Mean Corpuscular Hemoglobin 29.1 pg (26-34); Mean Corpuscular Volume 86.4 fl (80-100); Platelet Count Result 151 k/mm3 (150-375); Red Cell Distribution Width 13.1 % (11.5-14.5); White Blood Count 9.6 K/mm3 (4.5-10.0)
[2021-12-12 06:29] LABS: Anion Gap 9 mmol/L (8-16); Bilirubin,Total 0.9 mg/dL (0.2-1.3); Blood Urea Nitrogen 15 mg/dL (9-20); CRP 25.4 mg/dL (<1.0); Calcium 8.6 mg/dL (8.4-10.2); Carbon Dioxide 22 mmol/L (22-30); Chloride 103 mmol/L (98-107); Estimated CRCL calculation 117 ml/min; Estimated Glomerular Filt Rate > 60; Glucose 119 mg/dL (65-110); Potassium 3.6 mmol/L (3.4-5.0); Sodium 134 mmol/L (137-145)
[2021-12-12] MEDS: FAMOTIDINE 20 MG/2 ML VIAL IV PUSH ×2 (08:55→20:11)
--- NOTE | 2021-12-12 10:52 | PM.PNGS ---
Progress Note: A&P Assessment and Plan (1) Perforation of sigmoid colon due to diverticulitis: Code(s): K57.20 - Diverticulitis of large intestine with perforation and abscess without bleeding Status: Acute Assessment and Plan: Abdominal pain improved today. HR and BP better, afebrile. Hopefully will continue to improve. Continue NPO and IV fluids today Zosyn and Flagyl IV Await complete resolution of pain before restarting diet Discussed with patient possibility of needing percutaneous drain if organized abscess develops (2) Ileus due to infection: Code(s): K56.7 - Ileus, unspecified; B99.9 - Unspecified infectious disease Status: Acute Subjective Subjective Date/Time Seen: 12/12/21 10:52 Interval history: Pain improved. Having nausea but no vomiting. Passing a little flatus. No appetite. Exam GI: Inspection: non-distended GI Palp: Yes Soft to palpation, Yes Tenderness to palpation present (GI) (mostly RLQ and LLQ), No Guarding due to palpation present (GI) and No Rebound tenderness present Objective Data Vital Signs Vital Signs: Vital Signs - 24 hr 12/11/21 14:00 12/11/21 14:15 12/11/21 19:45 Temperature 37.1 C Pulse Rate 96 96 Respiratory Rate 20 Blood Pressure 129/75 Pulse Oximetry 99 99 100 12/11/21 21:06 12/12/21 05:46 Temperature 37.4 C 37.1 C Pulse Rate 91 79 Respiratory Rate 17 17 Blood Pressure 109/69 120/67 Pulse Oximetry 98 99 Intake/Output Intake/Output: Intake & Output 12/09/21 12/10/21 12/11/21 12/12/21 23:59 23:59 23:59 23:59 Intake Total 3840 2620 2590 2250 Output Total 1400 1100 300 Balance 2440 1520 2590 1950 Meds/Results Medications: Active Medications Generic Name Dose Route Start Last Admin Trade Name Freq PRN Reason Stop Dose Admin Acetaminophen 650 mg 12/09/21 13:33 Acetaminophen 325 Mg Tablet PO Q4H PRN Pain 1-3 Hydrocodone Bitart/Acetaminophen 1 tab 12/09/21 13:33 12/11/21 13:52 Hydrocodone/Acetaminophen (*Crx) 5-325 Mg Tablet PO 1 tab Q4H PRN Administration Pain Rated 4-6 Famotidine 20 mg 02/16/22 09:00 12/12/21 08:55 Famotidine 20 Mg/2 Ml Vial IV PUSH 20 mg Q12HR ANDREW Administration Hydromorphone HCl 1 mg 12/11/21 17:22 12/12/21 08:54 Hydromorphone Hcl Inj (*Crx) 1 Mg/Ml Syr IV PUSH 1 mg Q2H PRN Administration Pain Rated 7-10 Piperacillin/Tazobactam/Dextrose 3.375 gm in 50 mls @ 100 mls/hr 12/08/21 21:00 12/12/21 09:25 Zosyn 3.375 Gm/D5w 50ml Pm IVPB Infused Q6H ANDREW Infusion Metronidazole 250 mg in 50 mls @ 50 mls/hr 12/10/21 17:00 12/12/21 04:39 Flagyl 250 Mg/Iso Soln 50 Ml IVPB 50 mls/hr Q6H ANDREW Administration Potassium Chloride 10 meq/ 1,005 mls @ 125 mls/hr 12/11/21 18:00 12/12/21 02:35 Dextrose/Sodium Chloride IV CONT 125 mls/hr .Q8H3M ANDREW Administration Ketorolac Tromethamine 15 mg 12/10/21 16:00 12/12/21 03:15 Ketorolac 15 Mg/Ml Vial (*Bkc) IV PUSH 15 mg Q6H ANDREW Administration Lorazepam 1 mg 12/10/21 15:19 12/11/21 21:57 Lorazepam Inj (*Crx) 2 Mg/Ml Vial IV PUSH 1 mg Q6H PRN Administration Anxiety Ondansetron HCl 4 mg 12/08/21 21:49 12/12/21 08:54 Ondansetron Inj 4 Mg/2 Ml Vial IV PUSH 4 mg Q4H PRN Administration Nausea And Vomiting Radiology Results: ITS Impressions Chest X-Ray 12/09/21 09:59 IMPRESSION: 1. Stable bibasilar airspace opacities, consistent with atelectasis versus pneumonia. Abdomen/Pelvis CT 12/11/21 17:15 IMPRESSION: 1. Findings consistent with perforated diverticulitis, with previously seen deep abscess unchanged but also suspicion of newly developed air-fluid level/abscess anteriorly. Measurements have been left for your review. No gross free intraperitoneal gas. 2. Development of ileus. Diarrhea. 3. Mild splenomegaly. Labs Labs: Laboratory Results - last 24 hr 12/12/21 12/12/21 05:30 05:30 WBC 9.6 RBC 4.
[2021-12-12 14:00] VITALS: BP 120/72; PULSE 88; RESP 16; TEMP 36.3; O2SAT 98
--- NOTE | 2021-12-12 14:31 | PM.IMPN ---
Progress Note: A&P Assessment and Plan (1) Perforation of sigmoid colon due to diverticulitis: Code(s): K57.20 - Diverticulitis of large intestine with perforation and abscess without bleeding Status: Acute Assessment and Plan: History of diverticulitis presented with diffuse abdominal pain CT abdomen/pelvis showed thickening of the mid sigmoid colon wall and prominent pericolic fat stranding related to sigmoid diverticulitis Continue IV Zosyn and metronidazole NPO diet. Do not advance diet until pain has resolved Continue IV fluids while NPO Repeat CT scan on 12/10/2021 given lack of improvement showed interval development of bowel perforation abscess of the small bowel mesentery. CT scan 12/11/2021 again with perforated diverticulitis, unchanged deep abscess with suspicion of newly developed air-fluid levels/abscess Appreciate general surgery consultation Consider percutaneous abscess drainage if organized abscess develops Remains afebrile. Leukocytosis resolved He will need outpatient colonoscopy upon resolution of acute episode of diverticulitis for further evaluation (2) Abnormal CXR: Code(s): R93.89 - Abnormal findings on diagnostic imaging of other specified body structures Status: Acute Assessment and Plan: CT on presentation showed patchy infiltrates of the bilateral lower lobes and CXR showed stable bibasilar airspace opacities Clinical presentation not consistent with pneumonia. Patient is asymptomatic Findings likely related to atelectasis. Continue incentive spirometry (3) Hypomagnesemia: Code(s): E83.42 - Hypomagnesemia Status: Acute Assessment and Plan: Resolved. Continue to monitor Subjective Date/time seen: 12/12/21 14:31 Interval history: Date of service: 12/11/2021 Hernandez Clayton is a 36 year old male with a history of diverticulitis who is seen in follow up for an episode of acute diverticulitis. Feeling somewhat improved today. Still endorses sharp right lower quadrant pain that comes and goes intermittently. At this time his pain is about a 6/10. This morning it did get up to a 9/10. He is able to take deeper breaths today. He did have some nausea this morning with dry heaving but no vomiting. His nausea has now resolved. He has been NPO. He endorses all over abdominal soreness that makes it hard for him to get up, but he has been able to get up and walk to the bathroom. Denies chest pain or palpitations. His sweats have resolved. Denies fever or chills Review of Systems Review of Systems: All systems reviewed & are unremarkable except as noted in HPI and below Exam Narrative: General: Well-nourished, well-appearing 36 year-old male, sitting up in bed, comfortable, NARD Neuro: awake, alert and oriented x4, speech clear, no focal neuro deficits noted HEENMT: normocephalic, atraumatic, EOMI, sclerae anicteric, moist oral mucosa Respiratory: clear to auscultation bilaterally, nonlabored breathing Cardio: regular rate, regular rhythm with S1-S2 Abdomen: Nondistended, normoactive bowel sounds, soft, right lower quadrant is tender to palpation Extremities: no edema, erythema, or tenderness to palpation, DP pulses 2+ bilaterally Skin: no rashes or lesions, warm and dry Psych: appropriate mood and affect, judgment and insight intact Objective Data Vital Signs Vital Signs: Vital Signs - 24 hr 12/11/21 19:45 12/11/21 21:06 12/12/21 05:46 Temperature 99.4 F 98.8 F Pulse Rate 96 91 79 Respiratory Rate 17 17 Blood Pressure 109/69 120/67 Pulse Oximetry 100 98 99 Intake/Output Intake/Output: Intake & Output 12/09/21 12/10/21 12/11/21 12/12/21 23:59 23:59 23:59 23:59 Intake Total 3840 2620 2590 3305 Output Total 1400 1100 300 Balance 2440 1520 2590 3005 Meds/Results Medications: Active Medications Generic Name Dose Route Start Last Admin Trade Name Freq PRN Reason Stop Dose Admin Acetaminophen
[2021-12-12 22:03] VITALS: BP 119/78; PULSE 91; RESP 18; TEMP 36.9; O2SAT 97
[2021-12-13] MEDS: POTASSIUM CHLORIDE INJ 10 MEQ in DEXTROSE 5%/0.45% SOD CHL 1,000 ML 125 MEQ IV CONT ×3 (01:34→21:23)
[2021-12-13] MEDS: KETOROLAC 15 MG/ML VIAL (*BKC) IV PUSH ×4 (04:33→21:25)
[2021-12-13] MEDS: metroNIDAZOLE 250MG/ISO 50 ML 250 MG/50 ML BAG 50 MG IVPB ×4 (04:34→21:31)
[2021-12-13 06:03] LABS: Hematocrit 39.9 % (42.0-52.0); Hemoglobin 13.1 g/dL (14.0-18.0); Mean Corpuscular HGB Conc 32.8 g/dl (32-36); Mean Corpuscular Hemoglobin 28.9 pg (26-34); Mean Corpuscular Volume 87.9 fl (80-100); Mean Platelet Volume 10.4 fl (7.4-10.4); Platelet Count Result 179 k/mm3 (150-375); Red Blood Count 4.54 M/mm3 (4.6-6.20); Red Cell Distribution Width 13.2 % (11.5-14.5); White Blood Count 9.2 K/mm3 (4.5-10.0)
[2021-12-13 06:41] VITALS: BP 136/71; PULSE 79; RESP 18; TEMP 36.7; O2SAT 96
[2021-12-13 07:01] LABS: Anion Gap 8 mmol/L (8-16); Blood Urea Nitrogen 18 mg/dL (9-20); CRP 20.8 mg/dL (<1.0); Calcium 8.9 mg/dL (8.4-10.2); Carbon Dioxide 25 mmol/L (22-30); Chloride 102 mmol/L (98-107); Estimated CRCL calculation 107 ml/min; Estimated Glomerular Filt Rate > 60; Glucose 126 mg/dL (65-110); Sodium 135 mmol/L (137-145)
--- NOTE | 2021-12-13 07:47 | PM.PNGS ---
Progress Note: A&P Assessment and Plan (1) Perforation of sigmoid colon due to diverticulitis: Code(s): K57.20 - Diverticulitis of large intestine with perforation and abscess without bleeding Status: Acute Assessment and Plan: Continue Zosyn and Flagyl WBC and CRP improving Await resolution of ileus to restart clear liquids (2) Ileus due to infection: Code(s): K56.7 - Ileus, unspecified; B99.9 - Unspecified infectious disease Status: Acute Assessment and Plan: Will get abdominal Xray this AM Encourage ambulation, await return of bowel function Might need NG tube if nausea/vomiting continue Subjective Subjective Date/Time Seen: 12/13/21 07:47 Interval history: Pain improving, but feeling bloated and had several episodes of nausea and vomiting. No fevers. Had a small BM this AM. Not passing much flatus. Exam GI: Inspection: distended GI Palp: Yes Soft to palpation, Yes Tenderness to palpation present (GI) (minimal lower abdomen), No Guarding due to palpation present (GI) and No Rebound tenderness present Auscultation: Hypoactive bowel sounds present Objective Data Vital Signs Vital Signs: Vital Signs - 24 hr 12/12/21 14:00 12/12/21 22:03 12/13/21 06:41 Temperature 36.3 C L 36.9 C 36.7 C Pulse Rate 88 91 79 Respiratory Rate 16 18 18 Blood Pressure 120/72 119/78 136/71 Pulse Oximetry 98 97 96 Intake/Output Intake/Output: Intake & Output 12/10/21 12/11/21 12/12/21 12/13/21 23:59 23:59 23:59 23:59 Intake Total 2620 2590 4560 300 Output Total 1100 300 400 Balance 1520 2590 4260 -100 Meds/Results Medications: Active Medications Generic Name Dose Route Start Last Admin Trade Name Freq PRN Reason Stop Dose Admin Acetaminophen 650 mg 12/09/21 13:33 Acetaminophen 325 Mg Tablet PO Q4H PRN Pain 1-3 Hydrocodone Bitart/Acetaminophen 1 tab 12/09/21 13:33 12/11/21 13:52 Hydrocodone/Acetaminophen (*Crx) 5-325 Mg Tablet PO 1 tab Q4H PRN Administration Pain Rated 4-6 Famotidine 20 mg 12/09/21 09:00 12/12/21 20:11 Famotidine 20 Mg/2 Ml Vial IV PUSH 20 mg Q12HR ANDREW Administration Hydromorphone HCl 1 mg 12/11/21 17:22 12/12/21 20:10 Hydromorphone Hcl Inj (*Crx) 1 Mg/Ml Syr IV PUSH 1 mg Q2H PRN Administration Pain Rated 7-10 Piperacillin/Tazobactam/Dextrose 3.375 gm in 50 mls @ 100 mls/hr 12/08/21 21:00 12/13/21 05:05 Zosyn 3.375 Gm/D5w 50ml Pm IVPB Infused Q6H ANDREW Infusion Metronidazole 250 mg in 50 mls @ 50 mls/hr 12/10/21 17:00 12/13/21 05:35 Flagyl 250 Mg/Iso Soln 50 Ml IVPB Infused Q6H ANDREW Infusion Potassium Chloride 10 meq/ 1,005 mls @ 125 mls/hr 12/11/21 18:00 12/13/21 04:21 Dextrose/Sodium Chloride IV CONT Not Given .Q8H3M ANDREW Ketorolac Tromethamine 15 mg 12/10/21 16:00 12/13/21 04:33 Ketorolac 15 Mg/Ml Vial (*Bkc) IV PUSH 15 mg Q6H ANDREW Administration Lorazepam 1 mg 12/10/21 15:19 12/11/21 21:57 Lorazepam Inj (*Crx) 2 Mg/Ml Vial IV PUSH 1 mg Q6H PRN Administration Anxiety Ondansetron HCl 4 mg 12/08/21 21:49 12/12/21 12:53 Ondansetron Inj 4 Mg/2 Ml Vial IV PUSH 4 mg Q4H PRN Administration Nausea And Vomiting Radiology Results: ITS Impressions Chest X-Ray 12/09/21 09:59 IMPRESSION: 1. Stable bibasilar airspace opacities, consistent with atelectasis versus pneumonia. Abdomen/Pelvis CT 12/11/21 17:15 IMPRESSION: 1. Findings consistent with perforated diverticulitis, with previously seen deep abscess unchanged but also suspicion of newly developed air-fluid level/abscess anteriorly. Measurements have been left for your review. No gross free intraperitoneal gas. 2. Development of ileus. Diarrhea. 3. Mild splenomegaly. Labs Labs: Laboratory Results - last 24 hr 12/13/21 12/13/21 12/13/21 05:47 05:47 05:47 WBC 9.2 RBC 4.54 L Hgb 13.1 L Hct 39.9 L MCV 87.9 MCH 28.9 MCHC
[2021-12-13] MEDS: FAMOTIDINE 20 MG/2 ML VIAL IV PUSH ×2 (09:44→21:25)
[2021-12-13 10:00] VITALS: PULSE 79; RESP 18; O2SAT 96
[2021-12-13 14:00] VITALS: BP 125/75; PULSE 77; RESP 20; TEMP 35.8; O2SAT 97
[2021-12-13] MEDS: HYDROmorphone HCL INJ (*CRX) 1 MG/ML SYR IV PUSH ×2 (14:17→23:54)
[2021-12-13] MEDS: ONDANSETRON INJ 4 MG/2 ML VIAL IV PUSH (14:21)
--- NOTE | 2021-12-13 14:38 | PM.IMPN ---
Progress Note: A&P Assessment and Plan (1) Perforation of sigmoid colon due to diverticulitis: Code(s): K57.20 - Diverticulitis of large intestine with perforation and abscess without bleeding Status: Acute Assessment and Plan: History of diverticulitis, presented with diffuse abdominal pain CT abdomen/pelvis showed thickening of the mid sigmoid colon wall and prominent pericolic fat stranding related to sigmoid diverticulitis Continue IV Zosyn and metronidazole NPO diet. Do not advance diet until pain and ileus resolved Continue IV fluids while NPO Repeat CT scan on 12/10/2021 given lack of improvement showed interval development of bowel perforation abscess of the small bowel mesentery. CT scan 12/11/2021 again with perforated diverticulitis, unchanged deep abscess with suspicion of newly developed air-fluid levels/abscess Appreciate general surgery consultation Consider percutaneous abscess drainage if organized abscess develops Remains afebrile. Leukocytosis resolved. CRP trending down He will need outpatient colonoscopy upon resolution of acute episode of diverticulitis for further evaluation (2) Ileus due to infection: Code(s): K56.7 - Ileus, unspecified; B99.9 - Unspecified infectious disease Status: Acute Assessment and Plan: CT on 12/11 showed development of ileus Continue NPO diet and IV fluids Abdominal x-ray this morning showed SBO, however clinically seems to be more consistent with ileus. Discussed with General surgery. Will continue to monitor patient's symptoms. Consider NG decompression if nausea/vomiting persists Encourage ambulation (3) Abnormal CXR: Code(s): R93.89 - Abnormal findings on diagnostic imaging of other specified body structures Status: Acute Assessment and Plan: CT on presentation showed patchy infiltrates of the bilateral lower lobes and CXR showed stable bibasilar airspace opacities Clinical presentation not consistent with pneumonia. Patient is asymptomatic Findings likely related to atelectasis. Continue incentive spirometry (4) Hypomagnesemia: Code(s): E83.42 - Hypomagnesemia Status: Acute Assessment and Plan: Resolved. Continue to monitor Subjective Date/time seen: 12/13/21 14:38 Interval history: Date of service: 12/12/2021 Hernandez Clayton is a 36 year old male with a history of diverticulitis who is seen in follow up for an episode of acute diverticulitis. Feeling about the same today. No longer endorsing sharp abdominal pain but today he does complain of diffuse abdominal bloating. States his abdomen is feeling very full. Early this morning around 2:00 a.m. he had an episode of bilious emesis. Later in the morning he had a loose stool that he stated was greenish in color, similar to what he had been vomiting before. He has been feeling nauseous throughout the day but does note improvement with antiemetics. Denies shortness of breath. No cough, chest pain, dizziness, lightheadedness. He has been getting up walking around more today. No fevers, chills, sweats. No additional concerns at this time. He is tired of being in the hospital and misses his kids Review of Systems Review of Systems: All systems reviewed & are unremarkable except as noted in HPI and below Exam Narrative: General: Well-nourished, well-appearing 36 year-old male, lying supine in bed, comfortable, NARD Neuro: awake, alert and oriented x4, speech clear, no focal neuro deficits noted HEENMT: normocephalic, atraumatic, EOMI, sclerae anicteric, moist oral mucosa Respiratory: clear to auscultation bilaterally, nonlabored breathing Cardio: regular rate, regular rhythm with S1-S2 Abdomen: Nondistended, hypoactive bowel sounds, soft, nontender to palpation Extremities: no edema, erythema, or tenderness to palpation, DP pulses 2+ bilaterally Skin: no rashes or lesions, warm and dry Psych: appropriate mood and
[2021-12-13 22:11] VITALS: BP 128/74; PULSE 88; RESP 18; TEMP 36.7; O2SAT 99
[2021-12-14] MEDS: LORazepam INJ (*CRX) 2 MG/ML VIAL 1 MG IV PUSH ×3 (01:41→20:49)
[2021-12-14] MEDS: KETOROLAC 15 MG/ML VIAL (*BKC) IV PUSH ×4 (03:40→21:40)
[2021-12-14] MEDS: metroNIDAZOLE 250MG/ISO 50 ML 250 MG/50 ML BAG 50 MG IVPB ×4 (05:41→22:43)
[2021-12-14 06:09] LABS: Hematocrit 34.7 % (42.0-52.0); Hemoglobin 11.5 g/dL (14.0-18.0); Mean Corpuscular HGB Conc 33.1 g/dl (32-36); Mean Corpuscular Hemoglobin 28.8 pg (26-34); Mean Corpuscular Volume 86.8 fl (80-100); Mean Platelet Volume 10.4 fl (7.4-10.4); Platelet Count Result 161 k/mm3 (150-375); Red Cell Distribution Width 13.1 % (11.5-14.5); White Blood Count 8.9 K/mm3 (4.5-10.0)
[2021-12-14 06:46] LABS: Anion Gap 6 mmol/L (8-16); Blood Urea Nitrogen 15 mg/dL (9-20); CRP 13.7 mg/dL (<1.0); Calcium 8.4 mg/dL (8.4-10.2); Carbon Dioxide 25 mmol/L (22-30); Chloride 104 mmol/L (98-107); Estimated CRCL calculation 117 ml/min; Estimated Glomerular Filt Rate > 60; Glucose 128 mg/dL (65-110); Magnesium 2.1 mg/dL (1.6-2.3); Potassium 3.7 mmol/L (3.4-5.0); Sodium 135 mmol/L (137-145)
[2021-12-14 06:51] VITALS: BP 114/78; PULSE 77; RESP 18; TEMP 36; O2SAT 96
[2021-12-14] MEDS: POTASSIUM CHLORIDE INJ 10 MEQ in DEXTROSE 5%/0.45% SOD CHL 1,000 ML 125 MEQ IV CONT ×2 (09:27→19:49)
[2021-12-14] MEDS: FAMOTIDINE 20 MG/2 ML VIAL IV PUSH ×2 (09:28→20:48)
--- NOTE | 2021-12-14 10:40 | PM.PNGS ---
Progress Note: A&P Assessment and Plan (1) Perforation of sigmoid colon due to diverticulitis: Code(s): K57.20 - Diverticulitis of large intestine with perforation and abscess without bleeding Status: Acute Assessment and Plan: much improved, cont abx, encourage OOB, ambulation (2) Ileus due to infection: Code(s): K56.7 - Ileus, unspecified; B99.9 - Unspecified infectious disease Status: Acute Assessment and Plan: will place NG to decompress, cont bowel rest Subjective Subjective Date/Time Seen: 12/14/21 10:41 feels better today, pain now intermittent in RLQ and much less severe, c/o severe bloating, nausea Review of Systems Review of Systems: All systems reviewed & are unremarkable except as noted in HPI and below Exam Const: General: cooperative and acute distress moderate Nutritional Appearance: obese Orientation/consciousness: patient oriented x3 Limitations: no limitations Resp: Auscultation: clear to auscultation bilaterally Cardio: Rate: regular rate Rhythm: regular rhythm GI: Inspection: normal to inspection and distended GI Palp: Yes Soft to palpation, Yes Tenderness to palpation present (GI), No Guarding due to palpation present (GI) and No Rigid due to palpation Objective Data Vital Signs Vital Signs: Vital Signs - 24 hr 12/13/21 14:00 12/13/21 22:11 12/14/21 06:51 Temperature 35.8 C L 36.7 C 36.0 C L Pulse Rate 77 88 77 Respiratory Rate 20 18 18 Blood Pressure 125/75 128/74 114/78 Pulse Oximetry 97 99 96 Intake/Output Intake/Output: Intake & Output 12/11/21 12/12/21 12/13/21 12/14/21 23:59 23:59 23:59 23:59 Intake Total 2590 4560 2660 1305 Output Total 300 400 260 Balance 2590 4260 2260 1045 Meds/Results Medications: Active Medications Generic Name Dose Route Start Last Admin Trade Name Freq PRN Reason Stop Dose Admin Acetaminophen 650 mg 12/09/21 13:33 Acetaminophen 325 Mg Tablet PO Q4H PRN Pain 1-3 Hydrocodone Bitart/Acetaminophen 1 tab 12/09/21 13:33 12/11/21 13:52 Hydrocodone/Acetaminophen (*Crx) 5-325 Mg Tablet PO 1 tab Q4H PRN Administration Pain Rated 4-6 Famotidine 20 mg 12/09/21 09:00 12/14/21 09:28 Famotidine 20 Mg/2 Ml Vial IV PUSH 20 mg Q12HR ANDREW Administration Hydromorphone HCl 1 mg 12/11/21 17:22 12/13/21 23:54 Hydromorphone Hcl Inj (*Crx) 1 Mg/Ml Syr IV PUSH 1 mg Q2H PRN Administration Pain Rated 7-10 Piperacillin/Tazobactam/Dextrose 3.375 gm in 50 mls @ 100 mls/hr 12/08/21 21:00 12/14/21 09:57 Zosyn 3.375 Gm/D5w 50ml Pm IVPB Infused Q6H ANDREW Infusion Metronidazole 250 mg in 50 mls @ 50 mls/hr 12/10/21 17:00 12/14/21 05:41 Flagyl 250 Mg/Iso Soln 50 Ml IVPB 50 mls/hr Q6H ANDREW Administration Potassium Chloride 10 meq/ 1,005 mls @ 125 mls/hr 12/11/21 18:00 12/14/21 09:27 Dextrose/Sodium Chloride IV CONT 125 mls/hr .Q8H3M ANDREW Administration Ketorolac Tromethamine 15 mg 12/10/21 16:00 12/14/21 09:28 Ketorolac 15 Mg/Ml Vial (*Bkc) IV PUSH 15 mg Q6H ANDREW Administration Lorazepam 1 mg 12/10/21 15:19 12/14/21 09:27 Lorazepam Inj (*Crx) 2 Mg/Ml Vial IV PUSH 1 mg Q6H PRN Administration Anxiety Ondansetron HCl 4 mg 12/08/21 21:49 12/13/21 14:21 Ondansetron Inj 4 Mg/2 Ml Vial IV PUSH 4 mg Q4H PRN Administration Nausea And Vomiting Radiology Results: ITS Impressions Chest X-Ray 12/09/21 09:59 IMPRESSION: 1. Stable bibasilar airspace opacities, consistent with atelectasis versus pneumonia. Abdomen/Pelvis CT 12/11/21 17:15 IMPRESSION: 1. Findings consistent with perforated diverticulitis, with previously seen deep abscess unchanged but also suspicion of newly developed air-fluid level/abscess anteriorly. Measurements have been left for your review. No gross free intraperitoneal gas. 2. Development of ileus. Diarrhea. 3. Mild splenomegaly. Abdomen X-Ray 12/13/21 08:09 Im
--- NOTE | 2021-12-14 11:40 | PM.IMPN ---
Progress Note: A&P Assessment and Plan (1) Perforation of sigmoid colon due to diverticulitis: Code(s): K57.20 - Diverticulitis of large intestine with perforation and abscess without bleeding Status: Acute Assessment and Plan: History of diverticulitis, presented with diffuse abdominal pain CT abdomen/pelvis showed thickening of the mid sigmoid colon wall and prominent pericolic fat stranding related to sigmoid diverticulitis Continue IV Zosyn and metronidazole NPO diet. Do not advance diet until pain and ileus resolved Continue IV fluids while NPO Repeat CT scan on 12/10/2021 given lack of improvement showed interval development of bowel perforation abscess of the small bowel mesentery. CT scan 12/11/2021 again with perforated diverticulitis, unchanged deep abscess with suspicion of newly developed air-fluid levels/abscess Appreciate general surgery consultation Remains afebrile. Leukocytosis resolved. CRP trending down He will need outpatient colonoscopy upon resolution of acute episode of diverticulitis for further evaluation (2) Ileus due to infection: Code(s): K56.7 - Ileus, unspecified; B99.9 - Unspecified infectious disease Status: Acute Assessment and Plan: CT on 12/11 showed development of ileus Continue NPO diet and IV fluids Plan for NG placement for decompression (3) Abnormal CXR: Code(s): R93.89 - Abnormal findings on diagnostic imaging of other specified body structures Status: Acute Assessment and Plan: CT on presentation showed patchy infiltrates of the bilateral lower lobes and CXR showed stable bibasilar airspace opacities Clinical presentation not consistent with pneumonia. Patient is asymptomatic Findings likely related to atelectasis. Continue incentive spirometry (4) Hypomagnesemia: Code(s): E83.42 - Hypomagnesemia Status: Acute Assessment and Plan: Resolved. Mag 2.1 today Continue to monitor Subjective Date/time seen: 12/14/21 11:40 Interval history: Date of service: 12/14/2021 Hernandez Clayton is a 36 year old male with a history of diverticulitis who is seen in follow up for an episode of acute diverticulitis. Feeling about the same today. Feels about the same today. Continues to endorse nausea but no episodes of vomiting. He did have a small amount of liquid stool this morning. His base complaint today is abdominal bloating. He feels his stomach is even more full and he rates this discomfort as a 7/10. He also has right lower quadrant sharp pain that he states is about 6/10 constantly but occasionally gets up to 8/10. He has been able to get up and walk around more. States he is having a hard time just lying in bed and feels better when he is up and moving around. Denies fevers, chills, sweats. No shortness of breath. No chest pain or palpitations. He has no additional concerns today. Review of Systems Review of Systems: All systems reviewed & are unremarkable except as noted in HPI and below Exam Narrative: General: Well-nourished, well-appearing 36 year-old male, standing up, comfortable, NARD Neuro: awake, alert and oriented x4, speech clear, no focal neuro deficits noted HEENMT: normocephalic, atraumatic, EOMI, sclerae anicteric, moist oral mucosa Respiratory: clear to auscultation bilaterally, nonlabored breathing Cardio: regular rate, regular rhythm with S1-S2 Abdomen: Distended, hypoactive bowel sounds, firm, nontender to palpation Extremities: no edema, erythema, or tenderness to palpation Skin: no rashes or lesions, warm and dry Psych: appropriate mood and affect, judgment and insight intact Objective Data Vital Signs Vital Signs: Vital Signs - 24 hr 12/13/21 14:00 12/13/21 22:11 12/14/21 06:51 Temperature 96.4 F L 98.0 F 96.8 F L Pulse Rate 77 88 77 Respiratory Rate 20 18 18 Blood Pressure 125/75 128/74 114/78 Pulse Oximetry 97 99 96 Intake/Output Intake/Output:
--- NOTE | 2021-12-14 12:02 | PCNFU ---
Nutrition Follow-Up Complete: Alerted GI function as related to Diverticulitis as evidenced by Clear liquids Goal: Adequate Intake of at least 75% of meals Patient has limited progress towards goal. We will continue current goal. Pt current nutrition is NPO. Last recorded weight is 123 kg-stable. Bowel Motility:+BM reported 12/12 Labs Reviewed:Glu 128, Na 135, Hct 34.7,Hgb 11.5 Meds Noted:Zosyn, Pepcid, [place], Flagyl, Ativan, Potassium Chloride. Skin: WNL Additional Notes: Patient is NPO. Nausea and vomiting reported. Plans for NGT today per nursing. Monitoring: Will monitor every 3 days.
[2021-12-14] MEDS: HYDROmorphone HCL INJ (*CRX) 1 MG/ML SYR IV PUSH ×2 (12:34→14:27)
[2021-12-14 13:58] VITALS: BP 137/82; PULSE 87; RESP 20; TEMP 35.9; O2SAT 96
[2021-12-14 20:06] VITALS: BP 149/81; PULSE 96; RESP 18; TEMP 36.2; O2SAT 97
[2021-12-14 20:49] VITALS: RESP 18; O2SAT 97
[2021-12-15 02:21] VITALS: O2SAT 94
[2021-12-15] MEDS: KETOROLAC 15 MG/ML VIAL (*BKC) IV PUSH ×2 (03:50→09:34)
[2021-12-15] MEDS: metroNIDAZOLE 250MG/ISO 50 ML 250 MG/50 ML BAG 50 MG IVPB ×4 (04:43→22:41)
[2021-12-15] MEDS: ONDANSETRON INJ 4 MG/2 ML VIAL IV PUSH ×2 (05:13→09:45)
[2021-12-15 05:59] VITALS: BP 122/78; PULSE 85; RESP 17; TEMP 36.6; O2SAT 97
[2021-12-15 06:12] LABS: CRP 14.3 mg/dL (<1.0)
[2021-12-15 06:20] VITALS: BP 122/78; PULSE 85; RESP 17; TEMP 36.6; O2SAT 97
[2021-12-15] MEDS: POTASSIUM CHLORIDE INJ 10 MEQ in DEXTROSE 5%/0.45% SOD CHL 1,000 ML 125 MEQ IV CONT ×2 (06:34→18:57)
[2021-12-15] MEDS: HYDROmorphone HCL INJ (*CRX) 1 MG/ML SYR IV PUSH ×3 (09:35→17:00)
[2021-12-15] MEDS: FAMOTIDINE 20 MG/2 ML VIAL IV PUSH ×2 (09:35→20:02)
--- NOTE | 2021-12-15 11:42 | PM.PNGS ---
Progress Note: A&P Assessment and Plan (1) Perforation of sigmoid colon due to diverticulitis: Code(s): K57.20 - Diverticulitis of large intestine with perforation and abscess without bleeding Status: Acute Assessment and Plan: Continues to improve. Continue IV antibiotics. Repeat labs tomorrow. Encouraged walking the halls and OOB during the day. (2) Ileus due to infection: Code(s): K56.7 - Ileus, unspecified; B99.9 - Unspecified infectious disease Status: Acute Assessment and Plan: NG removed by patient this morning. He is feeling worse since it has been removed. Will replace NG today and continue bowel rest. Will start PPN/Clinimix. Additional Plan I have discussed the patient's case and plan of care with Dr. Aguirre. Subjective Subjective Date/Time Seen: 12/15/21 11:42 Patient reports: diarrhea and afebrile Interval history: Patient seen and examined this morning. He reports feeling better than yesterday after having the NG tube in overnight, which had 900 cc output. He is still feeling very bloated and full but no significant nausea. He reports that around 5:00 am this morning, he had a small liquid BM in the bed and at that time he felt like he was choking on the NG tube. He pulled it out and it has been out since. He has been walking around the room but has not been passing anymore gas. He feels worse after having the NG out for a few hours and does feel like he needs it back in place. No other complaints at this time. Review of Systems Cardiovascular: Cardiovascular: Reports no additional cardiovascular complaints and Denies chest pain Respiratory: Respiratory: Reports no additional respiratory complaints, Denies cough and Denies dyspnea Gastrointestinal: Gastrointestinal: Reports as per HPI and Reports no additional gastrointestinal complaints Exam Const: General: comfortable, no acute distress, alert and awake Orientation/consciousness: patient oriented x3 Resp: Effort & Inspection: normal respiratory effort Auscultation: clear to auscultation bilaterally Cardio: Rate: regular rate Rhythm: regular rhythm GI: Inspection: distended GI Palp: Yes Soft to palpation, Yes Tenderness to palpation present (GI) (RLQ, reportedly improved), No Guarding due to palpation present (GI) and No Rebound tenderness present Auscultation: Hypoactive bowel sounds present (very hypoactive) Neuro: General: patient oriented x3 Extrem: General: normal to inspection and no edema Psych: Mental Status: mental status grossly normal Insight: Good insight present (Psych) Objective Data Vital Signs Vital Signs: Vital Signs - 24 hr 12/14/21 13:58 12/14/21 20:06 12/14/21 20:49 Temperature 96.7 F L 97.2 F L Pulse Rate 87 96 Respiratory Rate 20 18 18 Blood Pressure 137/82 149/81 H Pulse Oximetry 96 97 97 12/15/21 02:21 12/15/21 05:59 12/15/21 06:20 Temperature 97.9 F 97.9 F Pulse Rate 85 85 Respiratory Rate 17 17 Blood Pressure 122/78 122/78 Pulse Oximetry 94 97 97 Intake/Output Intake/Output: Intake & Output 12/12/21 12/13/21 12/14/21 12/15/21 23:59 23:59 23:59 23:59 Intake Total 4560 2660 2660 1105 Output Total 300 630 416 8705 Balance 4260 2260 2150 -195 Meds/Results Medications: Active Medications Generic Name Dose Route Start Last Admin Trade Name Freq PRN Reason Stop Dose Admin Acetaminophen 650 mg 12/09/21 13:33 Acetaminophen 325 Mg Tablet PO Q4H PRN Pain 1-3 Hydrocodone Bitart/Acetaminophen 1 tab 12/09/21 13:33 12/11/21 13:52 Hydrocodone/Acetaminophen (*Crx) 5-325 Mg Tablet PO 1 tab Q4H PRN Administration Pain Rated 4-6 Famotidine 20 mg 12/09/21 09:00 12/15/21 09:35 Famotidine 20 Mg/2 Ml Vial IV PUSH 20 mg Q12HR ANDREW Administration Hydromorphone HCl 1 mg 12/11/21 17:22 12/15/21 09:35 Hydromorphone Hcl Inj (*Crx) 1 Mg/Ml Syr IV PUSH 1 mg Q2H PRN Administration Pain Rated 7-10 Piperacillin
[2021-12-15] MEDS: LORazepam INJ (*CRX) 2 MG/ML VIAL 1 MG IV PUSH ×2 (11:55→17:00)
[2021-12-15 12:46] LABS: Hematocrit 36.1 % (42.0-52.0); Mean Corpuscular HGB Conc 33.2 g/dl (32-36); Mean Corpuscular Hemoglobin 29.3 pg (26-34); Mean Platelet Volume 11.1 fl (7.4-10.4); Platelet Count Result 185 k/mm3 (150-375); Red Cell Distribution Width 13.2 % (11.5-14.5); White Blood Count 8.2 K/mm3 (4.5-10.0)
[2021-12-15 12:58] LABS: Anion Gap 8 mmol/L (8-16); Blood Urea Nitrogen 12 mg/dL (9-20); Calcium 8.7 mg/dL (8.4-10.2); Carbon Dioxide 24 mmol/L (22-30); Chloride 106 mmol/L (98-107); Estimated CRCL calculation 129 ml/min; Estimated Glomerular Filt Rate > 60; Glucose 112 mg/dL (65-110); Potassium 3.8 mmol/L (3.4-5.0); Sodium 138 mmol/L (137-145)
[2021-12-15 14:00] VITALS: BP 147/71; PULSE 86; RESP 16; TEMP 36.6; O2SAT 98
--- NOTE | 2021-12-15 15:42 | PM.IMPN ---
Progress Note: A&P Assessment and Plan (1) Perforation of sigmoid colon due to diverticulitis: Code(s): K57.20 - Diverticulitis of large intestine with perforation and abscess without bleeding Status: Acute Assessment and Plan: History of diverticulitis, presented with diffuse abdominal pain CT abdomen/pelvis showed thickening of the mid sigmoid colon wall and prominent pericolic fat stranding related to sigmoid diverticulitis. Repeat scan with evidence of perforation and deep abscess Appreciate general surgery consultation Remains afebrile. Leukocytosis resolved. CRP trending down Continue IV Zosyn and metronidazole Continue NG decompression NPO diet. IV fluids while NPO Consult dietitian to initiate PPN (2) Ileus due to infection: Code(s): K56.7 - Ileus, unspecified; B99.9 - Unspecified infectious disease Status: Acute Assessment and Plan: CT on 12/11 showed development of ileus Continue NPO diet and IV fluids Continue NG decompression (3) Abnormal CXR: Code(s): R93.89 - Abnormal findings on diagnostic imaging of other specified body structures Status: Acute Assessment and Plan: CT on presentation showed patchy infiltrates of the bilateral lower lobes and CXR showed stable bibasilar airspace opacities Clinical presentation not consistent with pneumonia. Patient is asymptomatic Findings likely related to atelectasis. Continue incentive spirometry (4) Hypomagnesemia: Code(s): E83.42 - Hypomagnesemia Status: Acute Assessment and Plan: Resolved. Subjective Date/time seen: 12/15/21 15:42 Interval history: Date of service: 12/15/2021 Hernandez Clayton is a 36 year old male with a history of diverticulitis who is seen in follow up for an episode of acute diverticulitis. He is doing fairly, states about the same today. ?Just another day.? He feels his abdomen is less distended although he is still having pain in the right lower quadrant that he rates up to 8/10 today. He also endorses some fullness and pressure, especially in the left lower quadrant. He tolerated the NG too well, however unfortunately last night while he was sleeping the NG tube was dislodged. He was hesitant about having it replaced, and he went about 6 hours today with his NG tube out. He eventually decided that he would like to proceed with having this put in again. He does have the tube comfortably in place now, although he does endorse sore throat and he can feel the tube when he swallows. He was up and walking around for quite a while today. He seems to be tolerating activity better. Denies nausea or vomiting. No fevers, chills, sweats. Denies shortness of breath. He has no additional concerns. His was present with him today at the bedside. Review of Systems Review of Systems: All systems reviewed & are unremarkable except as noted in HPI and below Exam Narrative: General: Well-nourished, well-appearing 36 year-old male, lying supine in bed comfortable, NARD Neuro: awake, alert and oriented x4, speech clear, no focal neuro deficits noted HEENMT: normocephalic, atraumatic, EOMI, sclerae anicteric, NG tube in left nare Respiratory: clear to auscultation bilaterally, nonlabored breathing Cardio: regular rate, regular rhythm with S1-S2 Abdomen: Nondistended, hypoactive bowel sounds, soft, mild tenderness to palpation right lower quadrant Extremities: no edema, erythema, or tenderness to palpation Skin: no rashes or lesions, warm and dry Psych: appropriate mood and affect, judgment and insight intact Objective Data Vital Signs Vital Signs: Vital Signs - 24 hr 12/14/21 20:06 12/14/21 20:49 12/15/21 02:21 Temperature 97.2 F L Pulse Rate 96 Respiratory Rate 18 18 Blood Pressure 149/81 H Pulse Oximetry 97 97 94 12/15/21 05:59 12/15/21 06:20 12/15/21 14:00 Temperature 97.9 F 97.9 F 97.8 F Pulse Rate 85 85 86 Respiratory Rate 17
[2021-12-15] MEDS: AMINO ACIDS 4.25%/D5W/LYTES/CA 2,000 ML 80 ML IV CONT (15:44)
[2021-12-15] MEDS: FAT EMULSIONS IV 20% 250 ML 20.83 ML IVPB (15:47)
[2021-12-15] MEDS: PHENOL/SOD PHENO SPRAY CHERRY (*BKC) 1 SPRAY MUCOUS MEM (16:07)
[2021-12-15] MEDS: METOCLOPRAMIDE HCL INJ 10 MG/2 ML VIAL IV PUSH ×2 (18:56→23:42)
[2021-12-15 19:56] VITALS: BP 139/76; PULSE 76; RESP 16; TEMP 36.7; O2SAT 95
[2021-12-15 20:03] VITALS: RESP 16; O2SAT 95
[2021-12-16] MEDS: HYDROmorphone HCL INJ (*CRX) 1 MG/ML SYR IV PUSH ×7 (00:14→22:36)
[2021-12-16] MEDS: LORazepam INJ (*CRX) 2 MG/ML VIAL 1 MG IV PUSH ×3 (00:14→22:34)
[2021-12-16 00:15] LABS: Glucose Point of Care 119 mg/dl (65-105)
[2021-12-16 04:33] VITALS: BP 145/83; PULSE 93; RESP 16; TEMP 36.8; O2SAT 97
[2021-12-16] MEDS: ONDANSETRON INJ 4 MG/2 ML VIAL IV PUSH (05:03)
[2021-12-16] MEDS: metroNIDAZOLE 250MG/ISO 50 ML 250 MG/50 ML BAG 50 MG IVPB ×4 (05:03→22:31)
[2021-12-16] MEDS: METOCLOPRAMIDE HCL INJ 10 MG/2 ML VIAL IV PUSH ×4 (05:13→23:32)
[2021-12-16 05:49] LABS: Basophils Absolute Auto 0.1 K/mm3 (0.0-0.1); Basophils Percent Auto 0.7 % (0.2-1.2); Eosinophils Absolute Auto 0.6 K/mm3 (0-0.3); Eosinophils Percent Auto 7.1 % (0-4.4); Hematocrit 35.4 % (42.0-52.0); Hemoglobin 11.9 g/dL (14.0-18.0); Immature Granulocyte Percent A 1.2 % (0-0.5); Lymphocytes Absolute Auto 1.44 K/mm3 (0.9-3.2); Mean Corpuscular HGB Conc 33.6 g/dl (32-36); Mean Corpuscular Hemoglobin 28.4 pg (26-34); Mean Corpuscular Volume 84.5 fl (80-100); Mean Platelet Volume 10.1 fl (7.4-10.4); Monocytes Absolute Auto 0.6 K/mm3 (0.1-0.6); Monocytes Percent Auto 7.6 % (2.6-8.5); Neutrophils Absolute Auto 5.6 K/mm3 (1.3-6.7); Neutrophils Percent Auto 66.4 % (45.5-73.1); Platelet Count Result 185 k/mm3 (150-375); Red Blood Count 4.19 M/mm3 (4.6-6.20); Red Cell Distribution Width 12.7 % (11.5-14.5); White Blood Count 8.5 K/mm3 (4.5-10.0)
[2021-12-16 06:02] LABS: Partial Thromboplastin Time 34.5 SECONDS (22.3-36.8)
[2021-12-16 06:03] LABS: Anion Gap 7 mmol/L (8-16); Blood Urea Nitrogen 9 mg/dL (9-20); Calcium 8.3 mg/dL (8.4-10.2); Carbon Dioxide 23 mmol/L (22-30); Chloride 104 mmol/L (98-107); Estimated CRCL calculation 129 ml/min; Estimated Glomerular Filt Rate > 60; Glucose 122 mg/dL (65-110); Magnesium 2.2 mg/dL (1.6-2.3); Potassium 3.9 mmol/L (3.4-5.0); Sodium 134 mmol/L (137-145); Triglycerides 156 mg/dL (<150)
[2021-12-16 06:10] LABS: Transferrin 159 mg/dL (206-381)
--- NOTE | 2021-12-16 07:10 | PM.PNGS ---
Progress Note: A&P Assessment and Plan (1) Perforation of sigmoid colon due to diverticulitis: Code(s): K57.20 - Diverticulitis of large intestine with perforation and abscess without bleeding Status: Acute Assessment and Plan: exam benign, cont IV abx, WBC normalized (2) Ileus due to infection: Code(s): K56.7 - Ileus, unspecified; B99.9 - Unspecified infectious disease Status: Acute Assessment and Plan: started Reglan, PPN, encourage OOB Subjective Subjective Date/Time Seen: 12/16/21 07:10 c/o intermittent sharp pains, bloating, overall improved Review of Systems Review of Systems: All systems reviewed & are unremarkable except as noted in HPI and below Exam Const: General: cooperative, comfortable and no acute distress Orientation/consciousness: patient oriented x3 Resp: Auscultation: clear to auscultation bilaterally Cardio: Rate: regular rate Rhythm: regular rhythm GI: Inspection: normal to inspection and distended GI Palp: Yes Soft to palpation, No Tenderness to palpation present (GI), No Guarding due to palpation present (GI) and No Rigid due to palpation Objective Data Vital Signs Vital Signs: Vital Signs - 24 hr 12/15/21 14:00 12/15/21 19:56 12/15/21 20:03 Temperature 36.6 C 36.7 C Pulse Rate 86 76 Respiratory Rate 16 16 16 Blood Pressure 147/71 H 139/76 Pulse Oximetry 98 95 95 12/16/21 04:33 Temperature 36.8 C Pulse Rate 93 Respiratory Rate 16 Blood Pressure 145/83 H Pulse Oximetry 97 Intake/Output Intake/Output: Intake & Output 12/13/21 12/14/21 12/15/21 12/16/21 23:59 23:59 23:59 23:59 Intake Total 2660 2660 2410 400 Output Total 967 984 5351 1775 Balance 2260 2150 1110 -1375 Meds/Results Medications: Active Medications Generic Name Dose Route Start Last Admin Trade Name Freq PRN Reason Stop Dose Admin Acetaminophen 650 mg 12/09/21 13:33 Acetaminophen 325 Mg Tablet PO Q4H PRN Pain 1-3 Hydrocodone Bitart/Acetaminophen 1 tab 12/09/21 13:33 12/11/21 13:52 Hydrocodone/Acetaminophen (*Crx) 5-325 Mg Tablet PO 1 tab Q4H PRN Administration Pain Rated 4-6 Famotidine 20 mg 12/09/21 09:00 12/15/21 20:02 Famotidine 20 Mg/2 Ml Vial IV PUSH 20 mg Q12HR ANDREW Administration Hydromorphone HCl 1 mg 12/11/21 17:22 12/16/21 05:54 Hydromorphone Hcl Inj (*Crx) 1 Mg/Ml Syr IV PUSH 1 mg Q2H PRN Administration Pain Rated 7-10 Piperacillin/Tazobactam/Dextrose 3.375 gm in 50 mls @ 100 mls/hr 12/08/21 21:00 12/16/21 02:47 Zosyn 3.375 Gm/D5w 50ml Pm IVPB Infused Q6H ANDREW Infusion Metronidazole 250 mg in 50 mls @ 50 mls/hr 12/10/21 17:00 12/16/21 06:03 Flagyl 250 Mg/Iso Soln 50 Ml IVPB Infused Q6H ANDREW Infusion Potassium Chloride 10 meq/ 1,005 mls @ 30 mls/hr 12/11/21 18:00 12/16/21 06:03 Dextrose/Sodium Chloride IV CONT 30 mls/hr .Q24H ANDREW Infusion Dextrose 1,000 mls @ 50 mls/hr 12/15/21 12:34 Dextrose 10% IV CONT .Q20H PRN if PN is interrupted Amino Acids/Electrolytes/Dextrose 2,000 mls @ 80 mls/hr 12/15/21 13:00 12/15/21 20:03 Clinimix E 4.25%/5% Solution IV CONT 80 mls/hr .Q24H ANDREW Infusion Protocol Fat Emulsion Intravenous 250 mls @ 20.833 mls/hr 12/15/21 13:00 12/16/21 03:50 Lipids 20% IVPB Infused Q24H ANDREW Infusion Lorazepam 1 mg 12/10/21 15:19 12/16/21 05:53 Lorazepam Inj (*Crx) 2 Mg/Ml Vial IV PUSH 1 mg Q6H PRN Administration Anxiety Metoclopramide HCl 10 mg 12/15/21 18:00 12/16/21 05:13 Metoclopramide Hcl Inj 10 Mg/2 Ml Vial IV PUSH 10 mg Q6HR ANDREW Administration Ondansetron HCl 4 mg 12/08/21 21:49 12/16/21 05:03 Ondansetron Inj 4 Mg/2 Ml Vial IV PUSH 4 mg Q4H PRN Administration Nausea And Vomiting Phenol 1 spray 12/15/21 15:41 12/15/21 16:07 Phenol/Sod Pheno [place] (*Bk) MUCOUS MEM 1 spray PRN PRN Administration Sore Throat Radiology Resu
[2021-12-16 08:15] VITALS: O2SAT 96
[2021-12-16] MEDS: FAMOTIDINE 20 MG/2 ML VIAL IV PUSH ×2 (08:38→20:15)
--- NOTE | 2021-12-16 10:57 | PCNFU ---
Nutrition Follow-Up Complete: Alerted GI function as related to Diverticulitis as evidenced by Clear liquids Goal: Adequate Intake of at least 75% of meals Patient has limited progress towards goal. We will continue current goal. Pt current nutrition is PPN. Last recorded weight is 123 kg-stable Bowel Motility:+BM reported 12/12 Labs Reviewed:TG 156,Glu 122, Na 134, Hct 35.4,Hgb 11.9 Meds Noted:Clinimix 4.25/5 at 80 ml/hr with 250 ml of 20% Lipid Emulsion, Reglan,Dilaudid, Pepcid, Flagyl, Zosyn. Skin: WNL Additional Notes: Spoke with patient today regarding PPN. He states he started with his first spell of Diverticulitis in Jun 2021. Lost about 30 ibs, starting eating better. Now in NPO with NGT. He is receiving PPN providing 1153 kcals and 82 gms protein. Meeting 47% of caloric needs and 100% protein needs. Answered all questions he had for me regarding diet. Agree with diet orders. Will monitor every Tuesday and Tuesday.
[2021-12-16 11:55] LABS: Glucose Point of Care 112 mg/dl (65-105)
--- NOTE | 2021-12-16 13:09 | PM.IMPN ---
Progress Note: A&P Assessment and Plan (1) Perforation of sigmoid colon due to diverticulitis: Code(s): K57.20 - Diverticulitis of large intestine with perforation and abscess without bleeding Status: Acute Assessment and Plan: History of diverticulitis, presented with diffuse abdominal pain CT abdomen/pelvis showed thickening of the mid sigmoid colon wall and prominent pericolic fat stranding related to sigmoid diverticulitis. Repeat scan with evidence of perforation and deep abscess Remains afebrile. Leukocytosis resolved. CRP trending down Continue IV Zosyn and metronidazole Continue NG decompression NPO diet. IV fluids while NPO Started on PPN Appreciate general surgery recommendations (2) Ileus due to infection: Code(s): K56.7 - Ileus, unspecified; B99.9 - Unspecified infectious disease Status: Acute Assessment and Plan: CT on 12/11 showed development of ileus Continue NPO diet and IV fluids Continue NG decompression (3) Abnormal CXR: Code(s): R93.89 - Abnormal findings on diagnostic imaging of other specified body structures Status: Acute Assessment and Plan: CT on presentation showed patchy infiltrates of the bilateral lower lobes and CXR showed stable bibasilar airspace opacities Clinical presentation not consistent with pneumonia. Patient is asymptomatic Findings likely related to atelectasis. Continue incentive spirometry (4) Hypomagnesemia: Code(s): E83.42 - Hypomagnesemia Status: Acute Assessment and Plan: Resolved. Subjective Date/time seen: 12/16/21 13:09 Interval history: Hernandez Clayton is a 36 year old male with a history of diverticulitis who is seen in follow up for an episode of acute diverticulitis. Pt has NG in place today. Still having all over aching feeling and bloating in his abdomen. No nausea, vomiting, fever, chills. reports he feels depressed from having to be in the hospital so long. Review of Systems Review of Systems: All systems reviewed & are unremarkable except as noted in HPI and below Exam Narrative: General: Well-nourished, well-appearing 36 year-old male, lying supine in bed comfortable, NARD Neuro: awake, alert and oriented x4, speech clear, no focal neuro deficits noted HEENMT: normocephalic, atraumatic,sclerae anicteric, NG tube in left nare Respiratory: clear to auscultation bilaterally, nonlabored breathing Cardio: regular rate, regular rhythm with S1-S2 Abdomen: Nondistended, hypoactive bowel sounds, soft, mild tenderness to palpation diffusely Extremities: no edema, erythema, or tenderness to palpation Skin: no rashes or lesions, warm and dry Psych: appropriate mood and affect, judgment and insight intact Objective Data Vital Signs Vital Signs: Vital Signs - 24 hr 12/15/21 14:00 12/15/21 19:56 12/15/21 20:03 Temperature 97.8 F 98.1 F Pulse Rate 86 76 Respiratory Rate 16 16 16 Blood Pressure 147/71 H 139/76 Pulse Oximetry 98 95 95 12/16/21 04:33 12/16/21 08:15 Temperature 98.2 F Pulse Rate 93 Respiratory Rate 16 Blood Pressure 145/83 H Pulse Oximetry 97 96 Intake/Output Intake/Output: Intake & Output 12/13/21 12/14/21 12/15/21 12/16/21 23:59 23:59 23:59 23:59 Intake Total 2660 2660 2410 500 Output Total 664 706 7329 1775 Balance 2260 2150 1110 -1275 Meds/Results Medications: Active Medications Generic Name Dose Route Start Last Admin Trade Name Freq PRN Reason Stop Dose Admin Acetaminophen 650 mg 12/09/21 13:33 Acetaminophen 325 Mg Tablet PO Q4H PRN Pain 1-3 Hydrocodone Bitart/Acetaminophen 1 tab 12/09/21 13:33 12/11/21 13:52 Hydrocodone/Acetaminophen (*Crx) 5-325 Mg Tablet PO 1 tab Q4H PRN Administration Pain Rated 4-6 Famotidine 20 mg 12/09/21 09:00 12/16/21 08:38 Famotidine 20 Mg/2 Ml Vial IV PUSH 20 mg Q12HR ANDREW Administration Hydromorphone HC
[2021-12-16] MEDS: FAT EMULSIONS IV 20% 250 ML 20.83 ML IVPB (13:16)
[2021-12-16] MEDS: AMINO ACIDS 4.25%/D5W/LYTES/CA 2,000 ML 80 ML IV CONT (13:17)
[2021-12-16 16:22] VITALS: BP 138/79; PULSE 90; RESP 16; TEMP 36.6; O2SAT 98
[2021-12-16 16:57] LABS: Glucose Point of Care 99 mg/dl (65-105)
[2021-12-16 20:15] VITALS: RESP 18; O2SAT 95
[2021-12-16 20:41] VITALS: BP 136/77; PULSE 86; RESP 18; TEMP 37; O2SAT 95
[2021-12-16 20:49] VITALS: PULSE 88; O2SAT 94
[2021-12-17 00:06] LABS: Glucose Point of Care 113 mg/dl (65-105)
[2021-12-17] MEDS: metroNIDAZOLE 250MG/ISO 50 ML 250 MG/50 ML BAG 50 MG IVPB ×3 (04:37→17:35)
[2021-12-17 05:09] VITALS: BP 139/78; PULSE 81; RESP 18; TEMP 36.9; O2SAT 94
[2021-12-17] MEDS: METOCLOPRAMIDE HCL INJ 10 MG/2 ML VIAL IV PUSH ×4 (05:15→23:13)
[2021-12-17 06:06] LABS: Basophils Absolute Auto 0.1 K/mm3 (0.0-0.1); Basophils Percent Auto 0.6 % (0.2-1.2); Eosinophils Absolute Auto 0.5 K/mm3 (0-0.3); Eosinophils Percent Auto 5.5 % (0-4.4); Hematocrit 36.8 % (42.0-52.0); Hemoglobin 12.4 g/dL (14.0-18.0); Immature Granulocyte Absolute 0.16 K/mm3 (0.00-0.031); Immature Granulocyte Percent A 1.7 % (0-0.5); Lymphocytes Percent Auto 13.9 % (18.3-44.2); Mean Corpuscular HGB Conc 33.7 g/dl (32-36); Mean Corpuscular Hemoglobin 28.5 pg (26-34); Mean Corpuscular Volume 84.6 fl (80-100); Mean Platelet Volume 10.3 fl (7.4-10.4); Monocytes Absolute Auto 0.6 K/mm3 (0.1-0.6); Monocytes Percent Auto 6.2 % (2.6-8.5); Neutrophils Absolute Auto 6.8 K/mm3 (1.3-6.7); Neutrophils Percent Auto 72.1 % (45.5-73.1); Platelet Count Result 202 k/mm3 (150-375); Red Blood Count 4.35 M/mm3 (4.6-6.20); Red Cell Distribution Width 12.7 % (11.5-14.5); White Blood Count 9.4 K/mm3 (4.5-10.0)
[2021-12-17 06:17] LABS: Alanine Aminotransferase 36 U/L (4-50); Albumin Level 3.5 g/dL (3.5-5.1); Alkaline Phosphatase 86 U/L (38-126); Anion Gap 10 mmol/L (8-16); Aspartate Amino Transferase 45 U/L (17-59); Bilirubin,Total 0.9 mg/dL (0.2-1.3); Blood Urea Nitrogen 10 mg/dL (9-20); Calcium 8.5 mg/dL (8.4-10.2); Carbon Dioxide 23 mmol/L (22-30); Chloride 102 mmol/L (98-107); Estimated CRCL calculation 129 ml/min; Estimated Glomerular Filt Rate > 60; Glucose 117 mg/dL (65-110); Magnesium 2.2 mg/dL (1.6-2.3); Phosphorus 4.5 mg/dL (2.5-4.5); Potassium 4.1 mmol/L (3.4-5.0); Sodium 135 mmol/L (137-145)
[2021-12-17 09:16] VITALS: PULSE 86; O2SAT 95
[2021-12-17] MEDS: FAMOTIDINE 20 MG/2 ML VIAL IV PUSH ×2 (09:59→20:44)
[2021-12-17] MEDS: HYDROmorphone HCL INJ (*CRX) 1 MG/ML SYR IV PUSH ×3 (09:59→17:35)
[2021-12-17 11:44] LABS: Glucose Point of Care 113 mg/dl (65-105)
--- NOTE | 2021-12-17 11:47 | PM.IMPN ---
Progress Note: A&P Assessment and Plan (1) Perforation of sigmoid colon due to diverticulitis: Code(s): K57.20 - Diverticulitis of large intestine with perforation and abscess without bleeding Status: Acute Assessment and Plan: History of diverticulitis, presented with diffuse abdominal pain CT abdomen/pelvis showed thickening of the mid sigmoid colon wall and prominent pericolic fat stranding related to sigmoid diverticulitis. Repeat scan with evidence of perforation and deep abscess Remains afebrile. Leukocytosis resolved. CRP trending down Continue IV Zosyn and metronidazole Continue NG decompression NPO diet. IV fluids while NPO Started on PPN Appreciate general surgery recommendations (2) Ileus due to infection: Code(s): K56.7 - Ileus, unspecified; B99.9 - Unspecified infectious disease Status: Acute Assessment and Plan: CT on 12/11 showed development of ileus Continue NPO diet and IV fluids Continue NG decompression (3) Abnormal CXR: Code(s): R93.89 - Abnormal findings on diagnostic imaging of other specified body structures Status: Acute Assessment and Plan: CT on presentation showed patchy infiltrates of the bilateral lower lobes and CXR showed stable bibasilar airspace opacities Clinical presentation not consistent with pneumonia. Patient is asymptomatic Findings likely related to atelectasis. Continue incentive spirometry (4) Hypomagnesemia: Code(s): E83.42 - Hypomagnesemia Status: Acute Assessment and Plan: Resolved. Subjective Date/time seen: 12/17/21 11:47 Interval history: Hernandez Clayton is a 36 year old male with a history of diverticulitis who is seen in follow up for an episode of acute diverticulitis. Pt has NG in place today. Still having significant abdominal pain. Has nausea from the NG tube. No vomiting. He is not having bowel movements. No cp/sob/LE edema. Review of Systems Review of Systems: All systems reviewed & are unremarkable except as noted in HPI and below Exam Narrative: General: NAD, mildly ill appearing Neuro: awake, alert and oriented x4, speech clear, no focal neuro deficits noted HEENMT: normocephalic, atraumatic,sclerae anicteric, NG tube in left nare Respiratory: clear to auscultation bilaterally, nonlabored breathing Cardio: regular rate, regular rhythm with S1-S2 Abdomen: Nondistended, hypoactive bowel sounds, soft, mild tenderness to palpation diffusely Extremities: no edema, erythema, or tenderness to palpation Skin: no rashes or lesions, warm and dry Psych: appropriate mood and affect, judgment and insight intact Objective Data Vital Signs Vital Signs: Vital Signs - 24 hr 12/16/21 16:22 12/16/21 20:15 12/16/21 20:41 Temperature 97.8 F 98.6 F Pulse Rate 90 86 Respiratory Rate 16 18 18 Blood Pressure 138/79 136/77 Pulse Oximetry 98 95 95 12/16/21 20:49 12/17/21 05:09 12/17/21 09:16 Temperature 98.4 F Pulse Rate 88 81 86 Respiratory Rate 18 Blood Pressure 139/78 Pulse Oximetry 94 94 95 Intake/Output Intake/Output: Intake & Output 12/14/21 12/15/21 12/16/21 12/17/21 23:59 23:59 23:59 23:59 Intake Total 2660 2410 3755 400 Output Total 510 1300 2875 2300 Balance 2150 1110 880 -1900 Meds/Results Medications: Active Medications Generic Name Dose Route Start Last Admin Trade Name Freq PRN Reason Stop Dose Admin Acetaminophen 650 mg 12/09/21 13:33 Acetaminophen 325 Mg Tablet PO Q4H PRN Pain 1-3 Hydrocodone Bitart/Acetaminophen 1 tab 12/09/21 13:33 12/11/21 13:52 Hydrocodone/Acetaminophen (*Crx) 5-325 Mg Tablet PO 1 tab Q4H PRN Administration Pain Rated 4-6 Famotidine 20 mg 12/09/21 09:00 12/17/21 09:59 Famotidine 20 Mg/2 Ml Vial IV PUSH 20 mg Q12HR ANDREW Administration Hydromorphone HCl 1 mg 12/11/21 17:22 12/17/21 09:59 Hydromorphone Hcl Inj (*Crx)
[2021-12-17] MEDS: FAT EMULSIONS IV 20% 250 ML 20.8 ML IVPB (13:26)
[2021-12-17] MEDS: AMINO ACIDS 4.25%/D5W/LYTES/CA 2,000 ML 80 ML IV CONT (13:27)
--- NOTE | 2021-12-17 13:43 | PM.PNGS ---
Progress Note: A&P Assessment and Plan (1) Perforation of sigmoid colon due to diverticulitis: Code(s): K57.20 - Diverticulitis of large intestine with perforation and abscess without bleeding Status: Acute Assessment and Plan: exam benign, cont IV abx, WBC normalized since he has reasonable bowel sounds today less bloating and nausea will try NG out. Will do ice chips for 4 hours and see how he does. If doing well will start clear liquids later today. I have encouraged the patient to be up walking and in the chair more. (2) Ileus due to infection: Code(s): K56.7 - Ileus, unspecified; B99.9 - Unspecified infectious disease Status: Acute Assessment and Plan: started Reglan, PPN, encourage OOB Reglan may be starting to help has patient is less bloated and feeling better. Additional Plan Continue PPN at least until tomorrow. May be able to stop it after this bag tomorrow if patient able to increase to full liquids in the a.m.. Subjective Subjective Date/Time Seen: 12/17/21 13:03 Patient lying in bed when I entered the room. States he is not passing flatus and has not had a bowel movement in 2 days. He states however he feels as if something may be happening like he may need to use bathroom and have a bowel movement soon. He is not nauseated other than the sensation of choking from the NG tube. Review of Systems Review of Systems: All systems reviewed & are unremarkable except as noted in HPI and below Constitutional: Constitutional: Reports as per HPI, Denies difficulty sleeping, Denies fatigue and Denies fever(s) ENT: Reports system reviewed and no additional complaints, except as documented Cardiovascular: Cardiovascular: Reports no additional cardiovascular complaints, Denies chest pain and Denies dyspnea Respiratory: Respiratory: Reports no additional respiratory complaints, Denies cough and Denies dyspnea Gastrointestinal: Gastrointestinal: Denies loose stools and Reports nausea ( Mild, feels as if it is because of the irritation of the NG gagging him.) Genitourinary: Genitourinary: Reports no additional male genitourinary complaints Musculoskeletal: Musculoskeletal: Reports no additional musculoskeletal complaints Integumentary/Breasts: Skin/Breast: Reports system reviewed and no additional complaints, except as docu Psychiatric: Psychiatric: Reports no additional psychiatric complaints Endocrine: Endocrine: Reports no additional endocrine complaints, Reports excessive sweating and Reports fatigue Exam HENMT: Head: normal to inspection, normocephalic and atraumatic Ears: hearing grossly normal bilaterally General nose exam: Normal external nose present Face and sinus: normal facial exam Mouth: Yes Normal oral and palatal mucosa present and Yes moist mucous membranes Neck: Neck: normal visual inspection, full ROM and no lymphadenopathy Chest: Chest palpation & inspection: normal inspection of the chest Resp: Effort & Inspection: normal respiratory effort Auscultation: clear to auscultation bilaterally GI: Inspection: normal to inspection and no scars GI Palp: Yes Soft to palpation Auscultation: normal bowel sounds Rectal Exam: deferred Other: Mild tenderness in the right lower cautery with palpation Skin: General skin exam: normal color and no rashes or lesions noted Neuro: General: patient oriented x3 and CN's II-XI intact bilaterally Cranial nerves: Yes Equal, round and reactive pupils present Psych: Appearance: grossly normal Mental Status: mental status grossly normal Insight: Good insight present (Psych) Objective Data Vital Signs Vital Signs: Vital Signs - 24 hr 12/16/21 16:22 12/16/21 20:15 12/16/21 20:41 Temperature 36.6 C 37.0 C Pulse Rate 90 86 Respiratory Rate 16 18 18 Blood Pressure 138/79 136/77 Pulse Oximetry 98 95 95 12/16/21 20:49 12/17/21 05:09 12/17/21 09:16 Temperature 36.9 C Pulse Rate 88 81 86 Respiratory Rate
[2021-12-17 14:18] VITALS: BP 133/89; PULSE 100; RESP 20; TEMP 36.8; O2SAT 97
[2021-12-17 16:38] LABS: Glucose Point of Care 82 mg/dl (65-105)
[2021-12-17 20:00] VITALS: PULSE 100; RESP 20; O2SAT 97
[2021-12-17 22:29] VITALS: BP 128/70; PULSE 92; RESP 18; TEMP 35.9; O2SAT 95
[2021-12-17] MEDS: metroNIDAZOLE 250MG/ISO 50 ML 250 MG/50 ML BAG 100 MG IVPB (23:13)
[2021-12-17 23:55] LABS: Glucose Point of Care 129 mg/dl (65-105)
[2021-12-18] MEDS: HYDROmorphone HCL INJ (*CRX) 1 MG/ML SYR IV PUSH ×2 (00:10→09:03)
[2021-12-18] MEDS: metroNIDAZOLE 250MG/ISO 50 ML 250 MG/50 ML BAG 100 MG IVPB (05:34)
[2021-12-18] MEDS: METOCLOPRAMIDE HCL INJ 10 MG/2 ML VIAL IV PUSH ×3 (05:34→16:44)
[2021-12-18 06:25] VITALS: BP 132/71; PULSE 90; RESP 18; TEMP 35.6; O2SAT 94
[2021-12-18 06:38] LABS: Anion Gap 12 mmol/L (8-16); Blood Urea Nitrogen 14 mg/dL (9-20); Calcium 8.9 mg/dL (8.4-10.2); Carbon Dioxide 25 mmol/L (22-30); Chloride 98 mmol/L (98-107); Estimated CRCL calculation 117 ml/min; Estimated Glomerular Filt Rate > 60; Glucose 116 mg/dL (65-110); Phosphorus 4.7 mg/dL (2.5-4.5); Potassium 4.6 mmol/L (3.4-5.0); Sodium 135 mmol/L (137-145)
[2021-12-18 07:10] LABS: Glucose Point of Care 112 mg/dl (65-105)
[2021-12-18] MEDS: polyethylene glycoL 3350 17 GM POWD.PACK PO (09:03)
[2021-12-18] MEDS: FAMOTIDINE 20 MG/2 ML VIAL IV PUSH ×2 (09:03→20:31)
--- NOTE | 2021-12-18 11:06 | PCNFU ---
Nutrition Follow-Up Complete: Alerted GI function as related to Diverticulitis as evidenced by Clear liquids goal: Adequate Intake of at least 75% of meals Patient is progressing towards goal. We will continue current goal. Pt current nutrition is Full liquids/PPN. Last recorded weight is 123 kg, stable Bowel Motility:+BM reported 12/15 Labs Reviewed:PO 4.7,Na 135, Glu 116 Meds Noted:Dilaudid, Flagyl, Reglan, Miralax, Clinimix 4.25/5 at 80 ml/hr with 250 ml of 20% Lipid Emulsion. Skin: WNL Additional Notes: Spoke with patient today. NGT removed. He did tolerate clear liquid tray today. PPN continues providing an additional 1153 kcals and 82 gms protein. Agree with diet orders at this time. Will monitor every Tuesday and Tuesday.
--- NOTE | 2021-12-18 11:33 | PM.IMPN ---
Progress Note: A&P Assessment and Plan (1) Perforation of sigmoid colon due to diverticulitis: Code(s): K57.20 - Diverticulitis of large intestine with perforation and abscess without bleeding Status: Acute Assessment and Plan: History of diverticulitis, presented with diffuse abdominal pain CT abdomen/pelvis showed thickening of the mid sigmoid colon wall and prominent pericolic fat stranding related to sigmoid diverticulitis. Repeat scan with evidence of perforation and deep abscess Remains afebrile. Leukocytosis resolved. CRP trending down Continue IV Zosyn and metronidazole Started on PPN NG removed 12/17/21, currently tolerating clears Appreciate general surgery recommendations (2) Ileus due to infection: Code(s): K56.7 - Ileus, unspecified; B99.9 - Unspecified infectious disease Status: Acute Assessment and Plan: CT on 12/11 showed development of ileus -see above, currently being managed by surgery (3) Abnormal CXR: Code(s): R93.89 - Abnormal findings on diagnostic imaging of other specified body structures Status: Acute Assessment and Plan: CT on presentation showed patchy infiltrates of the bilateral lower lobes and CXR showed stable bibasilar airspace opacities Clinical presentation not consistent with pneumonia. Patient is asymptomatic Findings likely related to atelectasis. Continue incentive spirometry (4) Hypomagnesemia: Code(s): E83.42 - Hypomagnesemia Status: Acute Assessment and Plan: Resolved. Subjective Date/time seen: 12/18/21 11:33 Interval history: Hernandez Clayton is a 36 year old male with a history of diverticulitis who is seen in follow up for an episode of acute diverticulitis. Pt had NG tube removed yesterday. He states he still has abdominal pain that waxes and wanes and is still getting dilaudid around the clock. He reports nausea and indigestion but no vomiting. Has not had a BM but feels like he is going to have one soon. No cp/sob. Review of Systems Review of Systems: All systems reviewed & are unremarkable except as noted in HPI and below Exam Narrative: General: NAD, mildly ill appearing Neuro: awake, alert and oriented x4, speech clear, no focal neuro deficits noted HEENMT: normocephalic, atraumatic,sclerae anicteric Respiratory: clear to auscultation bilaterally, nonlabored breathing Cardio: regular rate, regular rhythm with S1-S2 Abdomen: Nondistended, hypoactive bowel sounds, soft, mild tenderness to palpation diffusely worst RLQ Extremities: no edema, erythema, or tenderness to palpation Skin: no rashes or lesions, warm and dry Psych: appropriate mood and affect, judgment and insight intact Objective Data Vital Signs Vital Signs: Vital Signs - 24 hr 12/17/21 14:18 12/17/21 20:00 12/17/21 22:29 Temperature 98.2 F 96.7 F L Pulse Rate 100 100 92 Respiratory Rate 20 20 18 Blood Pressure 133/89 128/70 Pulse Oximetry 97 97 95 12/18/21 06:25 Temperature 96.0 F L Pulse Rate 90 Respiratory Rate 18 Blood Pressure 132/71 Pulse Oximetry 94 Intake/Output Intake/Output: Intake & Output 12/15/21 12/16/21 12/17/21 12/18/21 23:59 23:59 23:59 23:59 Intake Total 2410 3755 2790 490 Output Total 1300 2875 3500 200 Balance 1110 880 -710 290 Meds/Results Medications: Active Medications Generic Name Dose Route Start Last Admin Trade Name Freq PRN Reason Stop Dose Admin Acetaminophen 650 mg 12/09/21 13:33 Acetaminophen 325 Mg Tablet PO Q4H PRN Pain 1-3 Hydrocodone Bitart/Acetaminophen 1 tab 12/09/21 13:33 12/11/21 13:52 Hydrocodone/Acetaminophen (*Crx) 5-325 Mg Tablet PO 1 tab Q4H PRN Administration Pain Rated 4-6 Al Hydrox/Mg Hydrox/Simethicone 30 ml 12/18/21 08:03 Mag Hydrox/Al Hydrox/Simeth 30 Ml Udc PO Q6H PRN Indigestion Famotidine 20 mg 12/09/21 09:00 12/18/21 09:03 Fa
[2021-12-18 11:39] LABS: Triglycerides 141 mg/dL (<150)
[2021-12-18] MEDS: metroNIDAZOLE 250MG/ISO 50 ML 250 MG/50 ML BAG 50 MG IVPB ×3 (12:28→23:32)
[2021-12-18] MEDS: HYDROcodone/acetaminophen (*CRX) 5-325 MG TABLET 1 TAB PO ×2 (12:28→19:51)
[2021-12-18] MEDS: FAT EMULSIONS IV 20% 250 ML 20.8 ML IVPB (13:06)
[2021-12-18] MEDS: AMINO ACIDS 4.25%/D5W/LYTES/CA 2,000 ML 80 ML IV CONT (13:13)
[2021-12-18 13:51] LABS: Glucose Point of Care 123 mg/dl (65-105)
[2021-12-18 15:21] VITALS: BP 138/73; PULSE 99; RESP 18; TEMP 35.6; O2SAT 96
[2021-12-18] MEDS: oxyCODONE/ACETAMINOPHEN (*CRX) 5-325 MG TABLET 1 TABLET PO ×2 (16:11→23:39)
--- NOTE | 2021-12-18 19:18 | PM.PNGS ---
Progress Note: A&P Assessment and Plan (1) Perforation of sigmoid colon due to diverticulitis: Code(s): K57.20 - Diverticulitis of large intestine with perforation and abscess without bleeding Status: Acute Assessment and Plan: exam benign, cont IV abx, WBC normalized since he has less bloating and nausea he has done OK with the NG out If doing well will start clear liquidI increased his diet today before lunch to full liquids. I have encouraged the patient to be up walking and in the chair more. (2) Ileus due to infection: Code(s): K56.7 - Ileus, unspecified; B99.9 - Unspecified infectious disease Status: Acute Assessment and Plan: started Reglan on 12/15, PPN continues, encourage OOB Reglan may be starting to help has patient is less bloated and feeling better. May try changing this to p.o. morning. Apparently after his 1st dose yesterday the Zosyn timed out however since he is still in the hospital and a perforation colon will continue IV antibiotics until ready to be discharged. May decide to do 5-7 more days of oral antibiotics upon discharge in consider repeat CT scan just prior to going off those antibiotics. Additional Plan Continue PPN at least until tomorrow. May be able to stop it after this bag that is hanging if patient able to increase to full liquids in the a.m.. Tolerating some but not a lot of full liquid liquids today and has had no vomiting. Subjective Subjective Date/Time Seen: 12/18/21 19:10 Patient lying in bed with the lights off when I entered the room. He woke easily. States he is feeling better today but still gets hit with short waves of nausea. Also having enough pain that he is alternately taking either oxycodone or hydrocodone depending on his pain level. He states he has had very small bowel movements about 3 times today. Review of Systems Review of Systems: All systems reviewed & are unremarkable except as noted in HPI and below Constitutional: Constitutional: Reports as per HPI, Denies chills and Denies fever(s) Cardiovascular: Cardiovascular: Denies chest pain and Denies dyspnea Respiratory: Respiratory: Reports no additional respiratory complaints and Denies dyspnea Gastrointestinal: Gastrointestinal: Reports as per HPI, Reports bloating, Reports loose stools ( Approximately 3-4 small ones today throughout the day) and Reports nausea ( brief wave that passed fairly quickly.) Comments: Reports to me today 1 previous episode of diverticulitis diagnosed with an ER visit in June 2021 after which he took a week to 10 days of oral antibiotics including the Flagyl. Genitourinary: Genitourinary: Denies urinary frequency and Denies urinary urgency Comments: Urinating a lot because he is now both drinking and getting some PPN. Musculoskeletal: Musculoskeletal: Reports no additional musculoskeletal complaints Neurologic: Denies memory loss Psychiatric: Psychiatric: Denies anxiety and Denies memory loss Exam HENMT: Head: normal to inspection, normocephalic and atraumatic Ears: hearing grossly normal bilaterally General nose exam: Normal external nose present Face and sinus: normal facial exam Mouth: Yes Normal oral and palatal mucosa present and Yes moist mucous membranes Eyes: General: appearance normal, both eyes and all related structures Pupils: Equal, round and reactive pupils present EOM: EOMs intact bilaterally Neck: Neck: normal visual inspection, full ROM and no lymphadenopathy Resp: Effort & Inspection: normal respiratory effort Auscultation: clear to auscultation bilaterally Cardio: Jugular venous distension: no JVD Rate: regular rate Rhythm: regular rhythm Skin: General skin exam: normal color and no rashes or lesions noted Neuro: General: patient oriented x3 and CN's II-XI intact bilaterally Cranial nerves: Yes Equal, round and reactive pupils present Extrem: General: normal to inspection, full ROM and no edema Psych
[2021-12-18] MEDS: LORazepam INJ (*CRX) 2 MG/ML VIAL 1 MG IV PUSH (20:20)
[2021-12-18] MEDS: ONDANSETRON INJ 4 MG/2 ML VIAL IV PUSH (20:21)
[2021-12-18 22:12] VITALS: BP 131/76; PULSE 94; RESP 18; TEMP 36.7; O2SAT 95
[2021-12-18 23:48] LABS: Glucose Point of Care 130 mg/dl (65-105)
[2021-12-19] MEDS: METOCLOPRAMIDE HCL INJ 10 MG/2 ML VIAL IV PUSH ×2 (00:31→06:29)
[2021-12-19] MEDS: HYDROcodone/acetaminophen (*CRX) 5-325 MG TABLET 1 TAB PO (02:01)
[2021-12-19 06:04] LABS: Basophils Absolute Auto 0.1 K/mm3 (0.0-0.1); Basophils Percent Auto 0.6 % (0.2-1.2); Eosinophils Absolute Auto 0.6 K/mm3 (0-0.3); Eosinophils Percent Auto 3.5 % (0-4.4); Hematocrit 40.1 % (42.0-52.0); Hemoglobin 13.8 g/dL (14.0-18.0); Immature Granulocyte Absolute 0.45 K/mm3 (0.00-0.031); Immature Granulocyte Percent A 2.9 % (0-0.5); Lymphocytes Absolute Auto 1.89 K/mm3 (0.9-3.2); Lymphocytes Percent Auto 12.1 % (18.3-44.2); Mean Corpuscular HGB Conc 34.4 g/dl (32-36); Mean Corpuscular Hemoglobin 28.6 pg (26-34); Mean Platelet Volume 10.5 fl (7.4-10.4); Monocytes Percent Auto 6.5 % (2.6-8.5); Neutrophils Absolute Auto 11.6 K/mm3 (1.3-6.7); Neutrophils Percent Auto 74.4 % (45.5-73.1); Platelet Count Result 287 k/mm3 (150-375); Red Blood Count 4.83 M/mm3 (4.6-6.20); White Blood Count 15.6 K/mm3 (4.5-10.0)
[2021-12-19 06:15] VITALS: BP 118/73; PULSE 94; RESP 17; TEMP 35.6; O2SAT 95
[2021-12-19 06:20] LABS: Anion Gap 11 mmol/L (8-16); Blood Urea Nitrogen 14 mg/dL (9-20); Carbon Dioxide 24 mmol/L (22-30); Chloride 100 mmol/L (98-107); Estimated CRCL calculation 126 ml/min; Estimated Glomerular Filt Rate > 60; Glucose 132 mg/dL (65-110); Phosphorus 5.2 mg/dL (2.5-4.5); Potassium 4.4 mmol/L (3.4-5.0); Sodium 135 mmol/L (137-145)
[2021-12-19] MEDS: metroNIDAZOLE 250MG/ISO 50 ML 250 MG/50 ML BAG 50 MG IVPB ×4 (06:29→23:37)
[2021-12-19] MEDS: ONDANSETRON INJ 4 MG/2 ML VIAL IV PUSH (06:36)
[2021-12-19 06:44] LABS: Glucose Point of Care 143 mg/dl (65-105)
[2021-12-19] MEDS: FAMOTIDINE 20 MG/2 ML VIAL IV PUSH ×2 (08:55→20:18)
[2021-12-19] MEDS: polyethylene glycoL 3350 17 GM POWD.PACK PO (08:55)
[2021-12-19] MEDS: MAG HYDROX/AL HYDROX/SIMETH 30 ML UDC PO (08:57)
[2021-12-19] MEDS: ACETAMINOPHEN 325 MG TABLET 650 MG PO ×2 (10:08→16:38)
--- NOTE | 2021-12-19 10:13 | PM.PNGS ---
Progress Note: A&P Assessment and Plan (1) Perforation of sigmoid colon due to diverticulitis: Code(s): K57.20 - Diverticulitis of large intestine with perforation and abscess without bleeding Status: Acute Assessment and Plan: exam benign, cont IV abx, WBC Recheck today and is elevated at 15,000 thousand. ( Patient missed several doses of Zosyn and this was restarted again yesterday). Since he is doing okay will recheck tomorrow and continue IV antibiotics. Since he has less bloating and nausea he has done OK with the NG out Still having small loose stools that the nurses are not recording in the chart. ( He reports 3-4 since I saw him last evening and there is 1 record in the chart). I have asked the nurses to work in concert with him to keep this accurate. He states he tried everything except cream of wheat this morning on his full liquid tray and did not have nausea then.. I have encouraged the patient to be up walking and in the chair more And he appears to be doing better with this over the last 2 days. We will will continue current IV antibiotics PPN and reassess tomorrow morning. If doing well may be able to increase diet and prepare for discharged on oral antibiotics ( May decide to do 5-7 more days of oral antibiotics upon discharge in consider repeat CT scan just prior to going off those antibiotics), if white count remains up consider repeat imaging with IV contrast tomorrow. (2) Ileus due to infection: Code(s): K56.7 - Ileus, unspecified; B99.9 - Unspecified infectious disease Status: Acute Assessment and Plan: started Reglan on 12/15, PPN continues, encourage OOB Reglan may be starting to help has patient is less bloated and feeling better. Will try changing this to p.o. . Additional Plan Continue PPN at least until tomorrow. Continue Zosyn and metronidazole Try switching Reglan to p.o.. Continue MiraLax daily. Subjective Subjective Date/Time Seen: 12/19/21 10:13 Patient states he has not had to take as much pain medicine overnight. He has had 3-4 small loose stools since I visit him at 5:00 p.m. last night. He is not continuously nauseated but it comes every once a while and he has not vomited in the last 24-48 hours. He is getting up walking in the hallways. Review of Systems Review of Systems: All systems reviewed & are unremarkable except as noted in HPI and below Constitutional: Constitutional: Reports as per HPI Eyes: Eyes: Reports no additional eye complaints ENT: Reports system reviewed and no additional complaints, except as documented Cardiovascular: Cardiovascular: Reports no additional cardiovascular complaints, Denies chest pain and Denies dyspnea Respiratory: Respiratory: Reports no additional respiratory complaints, Reports no additional respiratory complaints, Denies cough and Denies dyspnea Genitourinary: Genitourinary: Reports no additional male genitourinary complaints, Denies urinary frequency and Denies urinary urgency Musculoskeletal: Musculoskeletal: Reports no additional musculoskeletal complaints Integumentary/Breasts: Skin/Breast: Reports system reviewed and no additional complaints, except as docu Neurologic: Reports system reviewed and no additional complaints, except as documented, Denies memory loss and Reports weakness Psychiatric: Psychiatric: Reports no additional psychiatric complaints, Denies anxiety and Denies memory loss Hematologic/Lymphatic: Hematologic/Lymphatic: Reports no additional hematologic/lymphatic complaints Allergic/Immunologic: Allergic/Immunologic: Reports no additional allergic/immunologic complaints Exam Const: General: cooperative, comfortable, well developed, alert, awake and Physically active Nutritional Appearance: well nourished Orientation/consciousness: patient oriented x3 Limitations: no limitations HENMT: Head: normal to inspection, normocephalic and atraumatic Ears: hearing grossly n
--- NOTE | 2021-12-19 10:29 | PM.IMPN ---
Progress Note: A&P Assessment and Plan (1) Perforation of sigmoid colon due to diverticulitis: Code(s): K57.20 - Diverticulitis of large intestine with perforation and abscess without bleeding Status: Acute Assessment and Plan: History of diverticulitis, presented with diffuse abdominal pain CT abdomen/pelvis showed thickening of the mid sigmoid colon wall and prominent pericolic fat stranding related to sigmoid diverticulitis. Repeat scan with evidence of perforation and deep abscess NG placed initially but removed 12/17/21 Remains afebrile. Leukocytosis had resolved after initiation of IV abx, but trending back up to 15.6 today Continue IV Zosyn and metronidazole, the order for zosyn apparently timed out so he was off of this x24 hours but this has been restarted. Started on PPN, continue for now. Possibly discontinue tomorrow pending how he does overnight with full liquids and his new leukocytosis. pt continues to tell me he feels more bloated and more nauseated, however when general surgery rounds he tells them he is feeling better with less bloating and nausea. Unclear where the disconnect is coming from Further management per general surgery. (2) Ileus due to infection: Code(s): K56.7 - Ileus, unspecified; B99.9 - Unspecified infectious disease Status: Acute Assessment and Plan: CT on 12/11 showed development of ileus -see above, currently being managed by surgery (3) Abnormal CXR: Code(s): R93.89 - Abnormal findings on diagnostic imaging of other specified body structures Status: Acute Assessment and Plan: CT on presentation showed patchy infiltrates of the bilateral lower lobes and CXR showed stable bibasilar airspace opacities Clinical presentation not consistent with pneumonia. Patient is asymptomatic Findings likely related to atelectasis. Continue incentive spirometry (4) Hypomagnesemia: Code(s): E83.42 - Hypomagnesemia Status: Acute Assessment and Plan: Resolved. Subjective Date/time seen: 12/19/21 09:30 Interval history: Hernandez Clayton is a 36 year old male with a history of diverticulitis who is seen in follow up for an episode of acute diverticulitis. Pt tells me he is more nauseated today but has not had any emesis. Still feeling very bloated and having aching abdominal pain. He states he has not had a true BM yet but has had 3 small episodes of clear watery diarrhea since last night. No cp/sob. Currently on full liquids. Review of Systems Review of Systems: All systems reviewed & are unremarkable except as noted in HPI and below Exam Narrative: General: NAD, non toxic Neuro: awake, alert and oriented x4, speech clear, no focal neuro deficits noted HEENMT: normocephalic, atraumatic,sclerae anicteric Respiratory: clear to auscultation bilaterally, nonlabored breathing Cardio: regular rate, regular rhythm with S1-S2 Abdomen: Nondistended, hypoactive bowel sounds, mild tenderness to palpation diffusely worst RLQ Extremities: no edema, erythema, or tenderness to palpation Skin: no rashes or lesions, warm and dry Psych: appropriate mood and affect, judgment and insight intact Objective Data Vital Signs Vital Signs: Vital Signs - 24 hr 12/18/21 15:21 12/18/21 22:12 12/19/21 06:15 Temperature 96.1 F L 98.0 F 96.1 F L Pulse Rate 99 94 94 Respiratory Rate 18 18 17 Blood Pressure 138/73 131/76 118/73 Pulse Oximetry 96 95 95 Intake/Output Intake/Output: Intake & Output 12/16/21 12/17/21 12/18/21 12/19/21 23:59 23:59 23:59 23:59 Intake Total 3755 2790 4020 1430 Output Total 2875 3500 700 Balance 880 -710 3320 1430 Meds/Results Medications: Active Medications Generic Name Dose Route Start Last Admin Trade Name Freq PRN Reason Stop Dose Admin Acetaminophen 650 mg 12/09/21 13:33 12/19/21 10:08 Acetaminophen 325 Mg Tablet PO 650 mg Q4H PRN
[2021-12-19] MEDS: METOCLOPRAMIDE HCL 10 MG TABLET PO ×3 (11:25→20:18)
[2021-12-19 11:56] LABS: Glucose Point of Care 109 mg/dl (65-105)
--- NOTE | 2021-12-19 13:10 | PC.NURSE ---
Assessments performed by Thang Aguila and [facility] [place] student were reviewed and verified, Dona Olivas RN. I agree with the charted assessment on this patient.
[2021-12-19] MEDS: FAT EMULSIONS IV 20% 250 ML 20.8 ML IVPB (13:14)
[2021-12-19] MEDS: AMINO ACIDS 4.25%/D5W/LYTES/CA 2,000 ML 80 ML IV CONT (13:15)
[2021-12-19 14:00] VITALS: BP 110/66; PULSE 91; RESP 14; TEMP 36.9; O2SAT 94
[2021-12-19 18:21] LABS: Glucose Point of Care 114 mg/dl (65-105)
[2021-12-19 20:13] VITALS: BP 120/82; PULSE 97; RESP 18; TEMP 36.6; O2SAT 97
[2021-12-19] MEDS: LORazepam INJ (*CRX) 2 MG/ML VIAL 1 MG IV PUSH (20:18)
[2021-12-20] MEDS: oxyCODONE/ACETAMINOPHEN (*CRX) 5-325 MG TABLET 1 TABLET PO (00:56)
[2021-12-20 01:37] LABS: Glucose Point of Care 106 mg/dl (65-105)
[2021-12-20 04:16] VITALS: BP 111/62; PULSE 87; RESP 16; TEMP 37; O2SAT 98
[2021-12-20] MEDS: metroNIDAZOLE 250MG/ISO 50 ML 250 MG/50 ML BAG 50 MG IVPB ×2 (04:25→12:18)
[2021-12-20 05:15] LABS: Basophils Absolute Auto 0.1 K/mm3 (0.0-0.1); Basophils Percent Auto 0.7 % (0.2-1.2); Eosinophils Absolute Auto 0.6 K/mm3 (0-0.3); Eosinophils Percent Auto 3.5 % (0-4.4); Hematocrit 41.9 % (42.0-52.0); Hemoglobin 13.6 g/dL (14.0-18.0); Immature Granulocyte Percent A 2.6 % (0-0.5); Lymphocytes Absolute Auto 2.53 K/mm3 (0.9-3.2); Lymphocytes Percent Auto 16.2 % (18.3-44.2); Mean Corpuscular HGB Conc 32.5 g/dl (32-36); Mean Corpuscular Volume 86.2 fl (80-100); Mean Platelet Volume 10.4 fl (7.4-10.4); Monocytes Absolute Auto 1.1 K/mm3 (0.1-0.6); Platelet Count Result 283 k/mm3 (150-375); Red Blood Count 4.86 M/mm3 (4.6-6.20); White Blood Count 15.7 K/mm3 (4.5-10.0)
[2021-12-20 05:23] LABS: Anion Gap 11 mmol/L (8-16); Blood Urea Nitrogen 13 mg/dL (9-20); Calcium 8.5 mg/dL (8.4-10.2); Carbon Dioxide 21 mmol/L (22-30); Chloride 102 mmol/L (98-107); Estimated CRCL calculation 114 ml/min; Estimated Glomerular Filt Rate > 60; Glucose 115 mg/dL (65-110); Phosphorus 4.7 mg/dL (2.5-4.5); Potassium 4.4 mmol/L (3.4-5.0); Sodium 134 mmol/L (137-145)
[2021-12-20] MEDS: METOCLOPRAMIDE HCL 10 MG TABLET PO ×4 (05:46→21:10)
[2021-12-20] MEDS: FAMOTIDINE 20 MG/2 ML VIAL IV PUSH (08:06)
--- NOTE | 2021-12-20 10:00 | PM.IMPN ---
Progress Note: A&P Assessment and Plan (1) Perforation of sigmoid colon due to diverticulitis: Code(s): K57.20 - Diverticulitis of large intestine with perforation and abscess without bleeding Status: Acute Assessment and Plan: History of diverticulitis, presented with diffuse abdominal pain CT abdomen/pelvis showed thickening of the mid sigmoid colon wall and prominent pericolic fat stranding related to sigmoid diverticulitis. Repeat scan with evidence of perforation and deep abscess NG discontinued on 12/17 Remains afebrile. Leukocytosis had resolved after initiation of IV abx, but trending back up to 15.7 today Continue IV Zosyn and metronidazole. He did miss 1 day of IV Zosyn as the order was timed out, he is back on now. Continue with PPN He is tolerating full liquid diet Appreciate general surgery consultation. Advance diet per General surgery recommendations (2) Ileus due to infection: Code(s): K56.7 - Ileus, unspecified; B99.9 - Unspecified infectious disease Status: Acute Assessment and Plan: CT on 12/11 showed development of ileus Ileus versus obstruction, being managed by General surgery Patient is endorsing loose stools (3) Abnormal CXR: Code(s): R93.89 - Abnormal findings on diagnostic imaging of other specified body structures Status: Acute Assessment and Plan: CT on presentation showed patchy infiltrates of the bilateral lower lobes and CXR showed stable bibasilar airspace opacities Clinical presentation not consistent with pneumonia. Patient is asymptomatic Findings likely related to atelectasis. Continue incentive spirometry (4) Hypomagnesemia: Code(s): E83.42 - Hypomagnesemia Status: Acute Assessment and Plan: Resolved. Subjective Date/time seen: 12/20/21 10:00 Interval history: Date of service: 12/20/2021 Hernandez Clayton is a 36 year old male with a history of diverticulitis who is seen in follow up for an episode of acute diverticulitis with microperforation. He is feeling better today. He tolerated full liquids. He was able to eat cream of wheat and yogurt and this did not cause him to become nauseated. He denies any episodes of nausea or vomiting. He does state that he has had 4 loose, watery green stools this morning. He feels that his bloating has improved. He does still have some areas of tenderness but his pain overall has improved. No fevers, chills, sweats. He is eager for discharge home. Denies dizziness, lightheadedness, weakness. Denies shortness of breath, cough, or chest pain. Review of Systems Review of Systems: All systems reviewed & are unremarkable except as noted in HPI and below Exam Narrative: General: Well-nourished, well-appearing 36 year-old male, lying supine in bed comfortable, NARD Neuro: awake, alert and oriented x4, speech clear, no focal neuro deficits noted HEENMT: normocephalic, atraumatic, EOMI, sclerae anicteric, NG tube in left nare Respiratory: clear to auscultation bilaterally, nonlabored breathing Cardio: regular rate, regular rhythm with S1-S2 Abdomen: Nondistended, normoactive bowel sounds, soft, nontender to palpation Extremities: no edema, erythema, or tenderness to palpation Skin: no rashes or lesions, warm and dry Psych: appropriate mood and affect, judgment and insight intact Objective Data Vital Signs Vital Signs: Vital Signs - 24 hr 12/19/21 14:00 12/19/21 20:13 12/20/21 04:16 Temperature 98.5 F 97.8 F 98.6 F Pulse Rate 91 97 87 Respiratory Rate 14 18 16 Blood Pressure 110/66 120/82 111/62 Pulse Oximetry 94 97 98 Intake/Output Intake/Output: Intake & Output 12/17/21 12/18/21 12/19/21 12/20/21 23:59 23:59 23:59 23:59 Intake Total 2790 4020 4650 1300 Output Total 3500 700 Balance -710 3320 4650 1300 Meds/Results Medications: Active Medications Generic Name Dose Route Start Last Admin Trade Name Freq PRN Reason Stop
[2021-12-20 11:50] LABS: Triglycerides 176 mg/dL (<150)
[2021-12-20] MEDS: ACETAMINOPHEN 325 MG TABLET 650 MG PO (12:18)
[2021-12-20 14:00] VITALS: BP 125/78; PULSE 96; RESP 16; TEMP 36.1; O2SAT 98
--- NOTE | 2021-12-20 14:02 | PM.PNGS ---
Progress Note: A&P Assessment and Plan (1) Perforation of sigmoid colon due to diverticulitis: Code(s): K57.20 - Diverticulitis of large intestine with perforation and abscess without bleeding Status: Acute Assessment and Plan: Exam benign, cont IV abx, WBC rechecked today and is elevated at 15,000 thousand still the same as yesterday. ( Patient missed several doses of Zosyn and this was restarted again on12/18). Since he is doing okay will recheck CBC tomorrow and change IV antibiotics to the P.o. antibiotics that we are planning to send him home on. Since he has less bloating and nausea he has done OK with the full liquids Still having small to now medium sized loose stools. ( He reports 3-4 since awakening this AM). I have asked the nurses to work in concert with him to keep this accurate. He states he tried ammon the cream of wheat this morning on his full liquid tray and did not have nausea then.. I have encouraged the patient to be up walking and in the chair more And he appears to be doing better with this over the last 3 days. We will stop the PPN and reassess tomorrow morning after we have a new WBC count back and decide whether or not he needs to have a reimaging ID CT scan of the abdomen pelvis with contrast prior to discharge. Otherwise most likely will plan to send him home on Augmentin plus Flagyl and consider a repeat CT scan several days before he completes the 7-10 day regimen that we are planning to follow-up with as oral antibiotics once he goes home.. (2) Ileus due to infection: Code(s): K56.7 - Ileus, unspecified; B99.9 - Unspecified infectious disease Status: Acute Assessment and Plan: started Reglan on 12/15, PPN continues, encourage OOB This seems to be resolved now as he is having multiple loose stools. . Subjective Subjective Date/Time Seen: 12/20/21 14:02 Patient lying in bed when I entered the room. He wakens easily. He states he has been up walking most the day. He has had 4 loose stools so far today. His abdominal pain is essentially gone. He did take a Percocet last evening for mild pain and to get a good night's sleep. He is taking only Tylenol today during the day for his crampy gas pain in the abdomen. He is hungry and would like to advance his diet. Review of Systems Review of Systems: All systems reviewed & are unremarkable except as noted in HPI and below Constitutional: Constitutional: Reports as per HPI Comments: Having some occasional gas pains across his abdomen. Positive flatus positive Belching. Eyes: Eyes: Reports no additional eye complaints ENT: Reports system reviewed and no additional complaints, except as documented Cardiovascular: Cardiovascular: Reports no additional cardiovascular complaints, Denies chest pain and Denies dyspnea Respiratory: Respiratory: Reports no additional respiratory complaints, Reports no additional respiratory complaints, Denies cough and Denies dyspnea Genitourinary: Genitourinary: Reports no additional male genitourinary complaints, Denies urinary frequency and Denies urinary urgency Musculoskeletal: Musculoskeletal: Reports no additional musculoskeletal complaints Integumentary/Breasts: Skin/Breast: Reports system reviewed and no additional complaints, except as docu Neurologic: Reports system reviewed and no additional complaints, except as documented, Denies memory loss and Reports weakness Endocrine: Endocrine: Reports no additional endocrine complaints, Reports excessive sweating and Reports fatigue Hematologic/Lymphatic: Hematologic/Lymphatic: Reports no additional hematologic/lymphatic complaints Allergic/Immunologic: Allergic/Immunologic: Reports no additional allergic/immunologic complaints Exam Const: General: cooperative, comfortable and no acute distress Nutritional Appearance: well nourished and obese HENMT: Head: normal to inspection, normocephalic and atraumatic
[2021-12-20 21:02] VITALS: PULSE 97; RESP 16; O2SAT 99
[2021-12-20] MEDS: metroNIDAZOLE 250 MG TABLET 500 MG PO (21:10)
[2021-12-20] MEDS: AMOXICILLIN/CLAVULANATE K 875-125 MG TAB 1 TABLET PO (21:10)
[2021-12-20 22:42] VITALS: BP 142/76; PULSE 101; RESP 18; TEMP 36.3; O2SAT 100
[2021-12-21 05:43] LABS: Hematocrit 39.6 % (42.0-52.0); Hemoglobin 13.4 g/dL (14.0-18.0); Mean Corpuscular HGB Conc 33.8 g/dl (32-36); Mean Corpuscular Hemoglobin 27.8 pg (26-34); Mean Corpuscular Volume 82.2 fl (80-100); Mean Platelet Volume 10.8 fl (7.4-10.4); Platelet Count Result 311 k/mm3 (150-375); Red Blood Count 4.82 M/mm3 (4.6-6.20); Red Cell Distribution Width 12.8 % (11.5-14.5); White Blood Count 12.3 K/mm3 (4.5-10.0)
[2021-12-21 05:55] LABS: Anion Gap 10 mmol/L (8-16); Blood Urea Nitrogen 12 mg/dL (9-20); Calcium 8.9 mg/dL (8.4-10.2); Carbon Dioxide 24 mmol/L (22-30); Chloride 103 mmol/L (98-107); Estimated CRCL calculation 126 ml/min; Estimated Glomerular Filt Rate > 60; Glucose 107 mg/dL (65-110); Magnesium 2.2 mg/dL (1.6-2.3); Potassium 4.3 mmol/L (3.4-5.0); Sodium 137 mmol/L (137-145)
[2021-12-21] MEDS: METOCLOPRAMIDE HCL 10 MG TABLET PO (06:14)
[2021-12-21] MEDS: metroNIDAZOLE 250 MG TABLET 500 MG PO (06:16)
[2021-12-21 07:02] VITALS: BP 120/73; PULSE 88; RESP 18; TEMP 36.7; O2SAT 97
[2021-12-21] MEDS: AMOXICILLIN/CLAVULANATE K 875-125 MG TAB 1 TABLET PO (08:28)
--- NOTE | 2021-12-21 11:01 | PCDIET ---
Nutrition Consult for Low Fiber diet teaching then advancing to high fiber diet. See Nutritional Teaching Intervention. Thank you for the consult.
--- NOTE | 2021-12-21 12:46 | PM.DS ---
DS: Admitting Diagnosis Discharge Date 12/21/2021 Admitting Diagnosis Perforation of the sigmoid colon due to diverticulitis Diverticulitis of large intestine with perforation and abscess without bleeding DS: Discharge Diagnosis Discharge Diagnosis (1) Perforation of sigmoid colon due to diverticulitis: Code(s): K57.20 - Diverticulitis of large intestine with perforation and abscess without bleeding Status: Acute Assessment and Plan: History of diverticulitis, presented with diffuse abdominal pain CT abdomen/pelvis showed thickening of the mid sigmoid colon wall and prominent pericolic fat stranding related to sigmoid diverticulitis. Repeat scan with evidence of perforation and deep abscess NG discontinued on 12/17 Remains afebrile. Leukocytosis had resolved after initiation of IV abx, but trending back up to 15.7 today Continue IV Zosyn and metronidazole. He did miss 1 day of IV Zosyn as the order was timed out, he is back on now. Antibiotics for his addition to amoxicillin Flagyl upon discharge. Continue with PPN He is tolerating full liquid diet Appreciate general surgery consultation. Advance diet per General surgery recommendations (2) Ileus due to infection: Code(s): K56.7 - Ileus, unspecified; B99.9 - Unspecified infectious disease Status: Acute Assessment and Plan: CT on 12/11 showed development of ileus Ileus versus obstruction, being managed by General surgery Patient is endorsing loose stools (3) Abnormal CXR: Code(s): R93.89 - Abnormal findings on diagnostic imaging of other specified body structures Status: Acute Assessment and Plan: CT on presentation showed patchy infiltrates of the bilateral lower lobes and CXR showed stable bibasilar airspace opacities Clinical presentation not consistent with pneumonia. Patient is asymptomatic Findings likely related to atelectasis. Continue incentive spirometry (4) Hypomagnesemia: Code(s): E83.42 - Hypomagnesemia Status: Acute Assessment and Plan: Resolved. (5) Superficial thrombophlebitis of arm: Code(s): I80.8 - Phlebitis and thrombophlebitis of other sites Status: Acute Assessment and Plan: Apply warm compresses and take [id number] NSAIDs as needed for acute pain. Follow-up with primary care physician DS: Summary Hospital Course Reason for hospitalization: Duration of the sigmoid colon due to diverticulitis, abscess Hospital Course: Pain external male with past medical history of diverticulitis. Patient has had 2 other episodes of diverticulitis in the past. Patient reports that he maintains a high-fiber diet and avoid seeds. Patient presented to the emergency department on her due to waking up early in the morning with severe abdominal pain to the lower abdomen the patient reports that this is similar to previous episodes of diverticulitis. He rated the pain as 6/10 at that time. He was also nauseated. He denies any fever, chills, shortness of breath or chest pain at that time. He did endorse diarrhea. While in the emergency department labs and imaging were obtained. CT readLingular and bilateral lower lobe patchy infiltrate and/atelectasis 3.7 mm nonspecific middle lobe nodular density Splenomegaly Thickening of the wall of the mid sigmoid colon and prominent surrounding pericolic fat stranding, likely due to sigmoid diverticulitis. Less likely would be perforated sigmoid colon cancer. Prostate calcifications. Labs were significant for WBC 15.3, hemoglobin 15.4, hematocrit 44.9, platelet 137, sodium 137, potassium 4.5, chloride 108, BUN 12, creatinine 1, glucose 111, calcium 9.0. Normal LFTs. UA negative. Patient was admitted to the medical unit for further evaluation of acute diverticulitis and he was started on IV fluids, Toradol, Phenergan, Rocephin, Dilaudid and Flagyl. Patient was transitioned to IV Zosyn with continuation of fluids. W
--- NOTE | 2021-12-21 12:49 | PM.PNGS ---
Progress Note: A&P Assessment and Plan (1) Perforation of sigmoid colon due to diverticulitis: Code(s): K57.20 - Diverticulitis of large intestine with perforation and abscess without bleeding Status: Acute Assessment and Plan: Continues to clinically improve. WBC down to 12K today. Okay from our standpoint to discharge the patient today on another 7 days of oral antibiotics. Will have him follow-up with Dr. Flowers in 1 week as an outpatient. Will plan a repeat CT scan as an outpatient depending on how he is progressing. (2) Ileus due to infection: Code(s): K56.7 - Ileus, unspecified; B99.9 - Unspecified infectious disease Status: Acute Assessment and Plan: Resolved. May stop Miralax on discharge, but educated patient on having this on hand at home to be used PRN if needed for constipation. Additional Plan I have discussed the patient's case and plan of care with Dr. Flowers. Subjective Subjective Date/Time Seen: 12/21/21 12:05 Patient reports: no new complaints, feels better, flatus, bowel movement and afebrile Interval history: Patient seen and examined. He reports feeling well today, even better than yesterday. Denies any abdominal pain, but still has some bloating that he feels is continuing to improve. He denies any nausea and vomiting. Tolerating a low fiber diet. His bowels are moving. No other complaints at this time. Review of Systems Review of Systems: All systems reviewed & are unremarkable except as noted in HPI and below Exam Const: General: no acute distress and alert Orientation/consciousness: patient oriented x3 GI: Inspection: normal to inspection and non-distended GI Palp: Yes Soft to palpation, Yes Tenderness to palpation present (GI) (mild LUQ tenderness), No Guarding due to palpation present (GI) and No Rebound tenderness present Auscultation: normal bowel sounds Extrem: General: normal to inspection and no edema Psych: Mental Status: mental status grossly normal Insight: Good insight present (Psych) Objective Data Vital Signs Vital Signs: Vital Signs - 24 hr 12/20/21 14:00 12/20/21 21:02 12/20/21 22:42 Temperature 97 F L 97.4 F L Pulse Rate 96 97 101 H Respiratory Rate 16 16 18 Blood Pressure 125/78 142/76 H Pulse Oximetry 98 99 100 02/28/22 07:02 Temperature 98.0 F Pulse Rate 88 Respiratory Rate 18 Blood Pressure 120/73 Pulse Oximetry 97 Intake/Output Intake/Output: Intake & Output 12/18/21 12/19/21 12/20/21 12/21/21 23:59 23:59 23:59 23:59 Intake Total 4020 4650 4020 340 Output Total 700 400 Balance 3320 4650 4020 -60 Meds/Results Medications: Active Medications Generic Name Dose Route Start Last Admin Trade Name Freq PRN Reason Stop Dose Admin Acetaminophen 650 mg 12/09/21 13:33 12/20/21 12:18 Acetaminophen 325 Mg Tablet PO 650 mg Q4H PRN Administration Pain 1-3 Hydrocodone Bitart/Acetaminophen 1 tab 12/09/21 13:33 12/19/21 02:01 Hydrocodone/Acetaminophen (*Crx) 5-325 Mg Tablet PO 1 tab Q4H PRN Administration Pain Rated 4-6 Al Hydrox/Mg Hydrox/Simethicone 30 ml 12/18/21 08:03 12/19/21 08:57 Mag Hydrox/Al Hydrox/Simeth 30 Ml Udc PO 30 ml Q6H PRN Administration Indigestion Amoxicillin/Clavulanate Potassium 1 tablet 12/20/21 21:00 12/21/21 08:28 Amoxicillin/Clavulanate K 875-125 Mg Tab PO 1 tablet Q12HR ANDREW Administration Lorazepam 1 mg 12/10/21 15:19 12/19/21 20:18 Lorazepam Inj (*Crx) 2 Mg/Ml Vial IV PUSH 1 mg Q6H PRN Administration Anxiety Metoclopramide HCl 10 mg 12/19/21 11:30 12/21/21 06:14 Metoclopramide Hcl 10 Mg Tablet PO 10 mg ACHS ANDREW Administration Metronidazole 500 mg 12/20/21 22:00 12/21/21 06:16 Metronidazole 250 Mg Tablet PO 500 mg Q8HR ANDREW Administration Ondansetron HCl 4 mg 12/19/21 10:11 Ondansetron Inj 4 Mg/2 Ml Vial IV PUSH Q6H PRN Nausea And Vomiting Oxycodone/Acetaminophen 1 tab
== END 2021-12-21 13:00 | disposition home or self-care (01) | DRG 392 ==
LOC: ANHED 14:15 → ANH3MED 15:24
PROVIDERS: Nurse Practitioner; Nurse Practitioner Family; Physician Assistant; Surgery; Admitting Provider Internal Medicine; Emergency Provider Emergency Medicine; Visit Provider Nurse Practitioner Family
DX: K57.20 Diverticulitis of large intestine with perforation and abscess without bleeding (principal); K56.7 Ileus, unspecified; Z87.891 Personal history of nicotine dependence; R93.89 Abnormal findings on diagnostic imaging of other specified body structures; E83.42 Hypomagnesemia; B99.9 Unspecified infectious disease; I80.8 Phlebitis and thrombophlebitis of other sites
CPT/HCPCS: 36415; 71046; 74018; 74019; 74176; 74177; 80048; 80053; 81003; 82247; 82728; 82948; 83605; 83615; 83690; 83735; 84100; 84443; 84466; 84478; 85025; 85027; 85055; 85730; 86140; 93971; 96361; 96365; 96366; 96367; 96375; 96376; 99285; A9270; G0378; J0696; J1170; J1885; J2060; J2270; J2405; J2543; J2550; J2765; J3475; J3480; J7030; Q9967

== ENCOUNTER 2022-01-01 14:33 | Outpatient (CLI) | payer OTHER, SELFPAY ==
--- NOTE | ~2022-01-01 | CT_ITS ---
EXAMINATION: CT abdomen pelvis w con EXAM DATE: 01/01/2022 15:01 INDICATION: K57.20 - Diverticulitis of large intestine with perforati... TECHNIQUE: Spiral CT of the abdomen and pelvis was performed following intravenous injection of 100 m L Omnipaque 350. Axial, coronal and sagittal images of the abdomen and pelvis were reviewed. The do se-length product (DLP) for this examination was 1149.86 mGy-cm. The exposure was tailored according to patient size (auto mA exposure control), and iterative reconstruction (ASIR) was used as addition al dose reduction technique. Comparison is made to prior examination from 12/11/2021. FINDINGS: There is significant interval decrease in size of previously seen pelvic abscess, suspected pocket now mostly gas-filled and measuring about 3 cm diameter by 1 cm thickness. See axial image 12 8, coronal image 44 No free intraperitoneal gas. Some mesenteric inflammation. Mild scattered colonic diverticulosis. No small bowel obstruction. Normal appendix. The liver, spleen, adrenal glands and pancreas are unremarkable. Gallbladder is unremarkable. No bi liary obstruction. Portal and splenic veins are patent. Kidneys enhance symmetrically. There is no hydronephrosis. The prostate is unremarkable. The bladder is unremarkable. There is no retroperi toneal or pelvic lymphadenopathy. No free intraperitoneal gas. The heart is normal in size. There are no pericardial or pleural effu sions. The lung bases are unremarkable. There are no osteoblastic or osteolytic lesions identified. IMPRESSION: Probable persistent small peridiverticular abscess, but with significant improvement, int erval decrease in size. Reviewed, dictated and finalized at location A. [facility] IMPRESSION: Probable persistent small peridiverticular abscess, but with signif icant improvement, interval decrease in size.
== END 2022-01-01 14:34 | disposition home or self-care (01) ==
PROVIDERS: PCP Family Medicine; Visit Provider Surgery
DX: K57.20 Diverticulitis of large intestine with perforation and abscess without bleeding (principal)
CPT/HCPCS: 74177; Q9967

== ENCOUNTER 2022-01-06 11:15 | Outpatient (CLI) | payer OTHER, SELFPAY ==
[2022-01-06 19:58] LABS: Hemoglobin A1C 4.7 % (<5.7)
[2022-01-06 20:21] LABS: Cholesterol 179 mg/dL (0-200); HDL Direct 25 mg/dL; Triglycerides 441 mg/dL (<150)
[2022-01-06 20:33] LABS: LDL Cholesterol Direct 84 mg/dL
== END 2022-01-06 11:16 | disposition home or self-care (01) ==
LOC: ANHBWCLAB 11:17
PROVIDERS: PCP Family Medicine; Visit Provider Family Medicine
DX: E66.9 Obesity, unspecified (principal); Z00.00 Encounter for general adult medical examination without abnormal findings
CPT/HCPCS: 36415; 80061; 83036

== ENCOUNTER 2022-01-25 10:03 | Outpatient (CLI) | payer OTHER, SELFPAY ==
--- NOTE | ~2022-01-25 | CT_ITS ---
EXAMINATION: CT abdomen pelvis w con DATE: 01/25/2022 10:25 INDICATION: Diverticulitis with perforation of the small bowel. TECHNIQUE: Computed tomography (CT) of the abdomen and pelvis was performed with 100 mL Omnipaque-350 intravenous contrast. Automated exposure control and iterative reconstruction technique were employe d. The dose-length product was 1095.77 mGy-cm. COMPARISON: 01/01/2022 FINDINGS: Linear bands of discoid atelectasis at the bilateral lower lobes, right middle lobe and lingula. Hear t size is normal. No pericardial or pleural effusion. Liver, gallbladder, pancreas, bilateral adrenal glands and kidneys are normal. Splenomegaly measuring 15.7 cm in maximal length. Normal appendix. Th ere are few scattered colonic diverticula. Prominent wall thickening at the mid sigmoid colon. There is prominent inflammatory stranding in the mesentery surrounding 3 loops of small bowel with mild wal l thickening and the central abdomen. Tiny foci of gas along a couple likely fistulous tract extendin g between the couple of these loops of small bowel in the previous noted significant focal wall thick ening of the sigmoid colon. The terminal ileum appears normal. Gas and fluid throughout multiple loops of more proximal small bow el but without manuel dilation or discrete transition point to more specifically suggest obstruction a nd would favor an ileus. The colon is decompressed. Bladder is normal. Small amount of nonloculated f ree fluid in the deep pelvis. No significant change in a small gas and fluid-filled abscess measuring 5 x 1 x 1.5 cm in the anterior right lower quadrant. No pathologically enlarged abdominal or pelvic lymphadenopathy. Mild scattered degenerative skeletal changes. IMPRESSION: 1. Findings consistent with ongoing sequela of perforated diverticulitis including an unchanged appro ximately 5 x 1 x 1.5 cm abscess and a couple enterocolonic fistulas between segment of thickened sigm oid colon and a few loops of small bowel which come together in the central abdomen with additional a ssociated wall thickening. 2. Multiple gas and fluid-filled but not frankly dilated loops of small bowel and favor persistent il eus or obstruction. 2. Unchanged nonspecific mild splenomegaly which could be related to body habitus. Reviewed, dictated and finalized at location B. IMPRESSION: 1. Findings consistent with ongoing sequela of perforated diverticulitis includ ing an unchanged approximately 5 x 1 x 1.5 cm abscess and a couple enterocoloni c fistulas between segment of thickened sigmoid colon and a few loops of small bowel which come together in the central abdomen with additional associated wal l thickening. 2. Multiple gas and fluid-filled but not frankly dilated loops of small bowel a nd favor persistent ileus or obstruction. 2. Unchanged nonspecific mild splenomegaly which could be related to body habit us.
[2022-01-25 10:43] LABS: Basophils Percent Auto 0.3 % (0.2-1.2); Eosinophils Absolute Auto 0.2 K/mm3 (0-0.3); Eosinophils Percent Auto 1.4 % (0-4.4); Hematocrit 42.8 % (42.0-52.0); Hemoglobin 14.6 g/dL (14.0-18.0); Immature Granulocyte Absolute 0.06 K/mm3 (0.00-0.031); Immature Granulocyte Percent A 0.4 % (0-0.5); Lymphocytes Absolute Auto 2.25 K/mm3 (0.9-3.2); Lymphocytes Percent Auto 16.8 % (18.3-44.2); Mean Corpuscular HGB Conc 34.1 g/dl (32-36); Mean Corpuscular Hemoglobin 28.5 pg (26-34); Mean Corpuscular Volume 83.6 fl (80-100); Mean Platelet Volume 10.8 fl (7.4-10.4); Monocytes Percent Auto 7.6 % (2.6-8.5); Neutrophils Absolute Auto 9.8 K/mm3 (1.3-6.7); Neutrophils Percent Auto 73.5 % (45.5-73.1); Platelet Count Result 191 k/mm3 (150-375); Red Blood Count 5.12 M/mm3 (4.6-6.20); Red Cell Distribution Width 14.6 % (11.5-14.5); White Blood Count 13.4 K/mm3 (4.5-10.0)
== END 2022-01-25 10:04 | disposition home or self-care (01) ==
LOC: ANHIMG 10:04
PROVIDERS: PCP Family Medicine; Visit Provider Surgery
DX: K57.20 Diverticulitis of large intestine with perforation and abscess without bleeding (principal)
CPT/HCPCS: 36415; 74177; 85025; Q9967

== ENCOUNTER 2022-01-25 13:50 | Inpatient (IN) | payer OTHER, SELFPAY ==
--- NOTE | 2022-01-25 13:03 | PM.IMHP ---
H&P: HPI History of Present Illness Date/Time: 01/25/22 13:03 Chief Complaint: Abdominal pain, fever Narrative: This is a 36-year-old male who is well known to our service from a previous hospitalization for perforated sigmoid diverticulitis with abscess from 12/08/2021 through 12/21/2021. He was treated with IV antibiotics and was eventually able to be discharged on a low-fiber diet with oral antibiotics. The patient followed up with Dr. Flowers in our office on 01/01/2022 after completing his oral antibiotics. He was feeling well and his symptoms resolved. An outpatient CT scan of the abdomen and pelvis was ordered to follow-up on his diverticulitis, which showed probable persistent small peridiverticular abscess, but with significant improvement, interval decrease in size. He was then set up for a colonoscopy scheduled for later this week, but over the weekend he began having abdominal pain. Tuesday, he reports having generalized mild cramping abdominal pain. This pain continued into Tuesday and he developed a fever around 100? F per the patient. His contacted the surgeon, and he was started on oral antibiotics and instructed to back off to a clear liquid diet. The patient took his first dose of the antibiotics on Tuesday and a second dose on Tuesday. He reports his abdominal pain continued to worsen through the weekend. They called the surgeon again due to his worsening abdominal pain, and he was sent for labs and a CT scan of the abdomen/pelvis. 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 Multiple gas and fluid-filled but not frankly dilated loops of small bowel also noted. The patient is now being directly admitted to our service in this setting. He is being seen on the medical floor. He reports having persistent nausea through the weekend, but no vomiting. He is still feeling nauseated. He has not eaten any solid food since Tuesday. He reports having a bowel movement this morning. He reports having loose stools since starting the antibiotic. Review of Systems Review of Systems: All systems reviewed & are unremarkable except as noted in HPI and below Constitutional: Constitutional: Reports as per HPI, Denies fatigue and Reports fever(s) Eyes: Eyes: Reports no additional eye complaints ENT: Reports system reviewed and no additional complaints, except as documented Cardiovascular: Cardiovascular: Reports no additional cardiovascular complaints, Denies chest pain and Denies leg edema Respiratory: Respiratory: Reports no additional respiratory complaints, Denies cough and Denies dyspnea Gastrointestinal: Gastrointestinal: Reports as per HPI, Reports no additional gastrointestinal complaints, Reports abdominal pain, Denies melena, Reports bloating, Denies hematochezia, Denies constipation, Reports GI cramping, Reports loose stools, Reports nausea and Denies vomiting Genitourinary: Genitourinary: Reports no additional male genitourinary complaints Musculoskeletal: Musculoskeletal: Reports no additional musculoskeletal complaints Integumentary/Breasts: Skin/Breast: Reports system reviewed and no additional complaints, except as docu Neurologic: Reports system reviewed and no additional complaints, except as documented, Denies dizziness, Denies focal weakness, Denies numbness and Denies tingling PMFSH Past Medical History Medical History History of diverticulitis of colon Surgical History Surgical History History of tonsillectomy Family History Family History Mother Diabetes mellitus Other Chronic obstructiv
[2022-01-25 14:00] VITALS: BP 123/78; PULSE 95; RESP 18; TEMP 37.9; O2SAT 98
[2022-01-25 15:04] VITALS: BMI 36.6
--- NOTE | 2022-01-25 15:31 | ADMGEN ---
This patient, Hernandez Clayton, was admitted to [facility] Surg Room 319-01. Patient/family oriented to hospital policies and general routines including ID bracelet, bed and alarms, visiting hours, pain management, procedures, bathroom and other care routines, personal items, smoking policy, room service/diet, and visiting hours. Information on how to activate the Rapid Response Team has been discussed. Patient/Family are encouraged to report perceived risks to care and to ask questions if they do not understand what they are told or what they should do.
[2022-01-25 16:05] VITALS: O2SAT 98
[2022-01-25] MEDS: MORPHINE SULFATE (*CRX) 4 MG/ML INJ IV PUSH ×2 (18:34→22:11)
[2022-01-25] MEDS: ONDANSETRON INJ 4 MG/2 ML VIAL IV PUSH (18:35)
[2022-01-25] MEDS: SODIUM CHLORIDE 0.9% IV 1,000 ML 100 ML IV CONT (18:35)
[2022-01-25 22:00] VITALS: BP 137/75; PULSE 93; RESP 20; TEMP 37.1; O2SAT 97
[2022-01-26] MEDS: MORPHINE SULFATE (*CRX) 4 MG/ML INJ IV PUSH (01:28)
[2022-01-26] MEDS: SODIUM CHLORIDE 0.9% IV 1,000 ML 100 ML IV CONT (05:49)
[2022-01-26 05:50] VITALS: BP 111/70; PULSE 73; RESP 18; TEMP 36.5; O2SAT 96
[2022-01-26 06:01] LABS: Basophils Percent Auto 0.5 % (0.2-1.2); Eosinophils Absolute Auto 0.3 K/mm3 (0-0.3); Eosinophils Percent Auto 3.5 % (0-4.4); Hematocrit 40.4 % (42.0-52.0); Hemoglobin 13.2 g/dL (14.0-18.0); Immature Granulocyte Absolute 0.05 K/mm3 (0.00-0.031); Immature Granulocyte Percent A 0.6 % (0-0.5); Lymphocytes Absolute Auto 1.89 K/mm3 (0.9-3.2); Lymphocytes Percent Auto 21.8 % (18.3-44.2); Mean Corpuscular HGB Conc 32.7 g/dl (32-36); Mean Corpuscular Hemoglobin 28.1 pg (26-34); Mean Corpuscular Volume 86.1 fl (80-100); Mean Platelet Volume 10.7 fl (7.4-10.4); Monocytes Absolute Auto 0.8 K/mm3 (0.1-0.6); Monocytes Percent Auto 8.6 % (2.6-8.5); Neutrophils Absolute Auto 5.7 K/mm3 (1.3-6.7); Platelet Count Result 174 k/mm3 (150-375); Red Blood Count 4.69 M/mm3 (4.6-6.20); Red Cell Distribution Width 14.6 % (11.5-14.5); White Blood Count 8.7 K/mm3 (4.5-10.0)
[2022-01-26 06:10] LABS: Anion Gap 8 mmol/L (8-16); Blood Urea Nitrogen 15 mg/dL (9-20); Calcium 8.4 mg/dL (8.4-10.2); Carbon Dioxide 25 mmol/L (22-30); Chloride 104 mmol/L (98-107); Estimated CRCL calculation 94 ml/min; Estimated Glomerular Filt Rate > 60; Glucose 104 mg/dL (65-110); Potassium 3.5 mmol/L (3.4-5.0); Sodium 137 mmol/L (137-145)
[2022-01-26 11:42] VITALS: BMI 36.6
--- NOTE | 2022-01-26 13:53 | PM.PNGS ---
Progress Note: A&P Assessment and Plan (1) Diverticulitis of intestine with perforation and abscess without bleeding: Qualifiers: Diverticulitis site: large intestine Qualified Code(s): K57.20 - Diverticulitis of large intestine with perforation and abscess without bleeding Code(s): K57.80 - Diverticulitis of intestine, part unspecified, with perforation and abscess without bleeding Status: Acute Assessment and Plan: Continue IV Zosyn Will advance diet to full liquids today Will plan to keep patient in hospital on IV antibiotics 1 more day and hopefully will discharge tomorrow if continuing to improve. (2) Obesity (BMI 30-39.9): Code(s): E66.9 - Obesity, unspecified Status: Acute Subjective Subjective Date/Time Seen: 01/26/22 13:53 Interval history: Pain improving today. No fevers. Appetite returning. Feeling better. Exam GI: Inspection: non-distended GI Palp: Yes Soft to palpation, Yes Tenderness to palpation present (GI) (mild RLQ and LLQ), No Guarding due to palpation present (GI) and No Rebound tenderness present Auscultation: normal bowel sounds Objective Data Vital Signs Vital Signs: Vital Signs - 24 hr 01/25/22 14:00 01/25/22 16:05 01/25/22 22:00 Temperature 37.9 C H 37.1 C Pulse Rate 95 93 Respiratory Rate 18 20 Blood Pressure 123/78 137/75 Pulse Oximetry 98 98 97 01/26/22 05:50 Temperature 36.5 C Pulse Rate 73 Respiratory Rate 18 Blood Pressure 111/70 Pulse Oximetry 96 Intake/Output Intake/Output: Intake & Output 01/23/22 01/24/22 01/25/22 01/26/22 23:59 23:59 23:59 23:59 Intake Total 540 1200 Balance 540 1200 Meds/Results Medications: Active Medications Generic Name Dose Route Start Last Admin Trade Name Freq PRN Reason Stop Dose Admin Piperacillin/Tazobactam/Dextrose 3.375 gm in 50 mls @ 100 mls/hr 01/25/22 15:00 01/26/22 08:35 Zosyn 3.375 Gm/D5w 50ml Pm IVPB Infused Q6H ANDREW Infusion Morphine Sulfate 2 mg 01/25/22 13:45 Morphine Sulfate (*Crx) 2 Mg/Ml Inj IV PUSH Q2H PRN Pain Rated 4-6 Morphine Sulfate 4 mg 01/25/22 13:45 01/26/22 01:28 Morphine Sulfate (*Crx) 4 Mg/Ml Inj IV PUSH 4 mg Q2H PRN Administration Pain Rated 7-10 Ondansetron HCl 4 mg 01/25/22 13:45 01/25/22 18:35 Ondansetron Inj 4 Mg/2 Ml Vial IV PUSH 4 mg Q4H PRN Administration Nausea And Vomiting Labs Labs: Laboratory Results - last 24 hr 01/26/22 01/26/22 05:43 05:43 WBC 8.7 RBC 4.69 Hgb 13.2 L Hct 40.4 L MCV 86.1 MCH 28.1 MCHC 32.7 RDW 14.6 H Plt Count 174 MPV 10.7 H Immature Gran % (Auto) 0.6 H Neut % (Auto) 65.0 Lymph % (Auto) 21.8 [place] % (Auto) 8.6 H Eos % (Auto) 3.5 Baso % (Auto) 0.5 Lymph # (Auto) 1.89 [place] # (Auto) 0.8 H Eos # (Auto) 0.3 Baso # (Auto) 0.0 Abs Immat Gran (auto) 0.05 H Absolute Neuts (auto) 5.7 Absolute Nucleated RBC 0.0 Nucleated RBC % 0.0 Sodium 137 Potassium 3.5 Chloride 104 Carbon Dioxide 25 Anion Gap 8 BUN 15 Creatinine 1.20 Estim Creat Clear Calc 94 Estimated GFR > 60 Glucose 104 Calcium 8.4 Quality VTE Prophylaxis VTE prophylaxis: mechanical ordered
[2022-01-26 14:00] VITALS: BP 121/76; PULSE 80; RESP 18; TEMP 35.7; O2SAT 98
[2022-01-26] MEDS: MORPHINE SULFATE (*CRX) 2 MG/ML INJ IV PUSH (20:35)
[2022-01-26 22:25] VITALS: BP 127/74; PULSE 70; RESP 18; TEMP 37; O2SAT 97
[2022-01-27] MEDS: MORPHINE SULFATE (*CRX) 2 MG/ML INJ IV PUSH (05:19)
[2022-01-27 05:34] VITALS: BP 121/68; PULSE 65; RESP 18; TEMP 36.6; O2SAT 97
[2022-01-27 06:13] LABS: Hematocrit 38.9 % (42.0-52.0); Hemoglobin 12.9 g/dL (14.0-18.0); Mean Corpuscular HGB Conc 33.2 g/dl (32-36); Mean Corpuscular Hemoglobin 28.2 pg (26-34); Mean Corpuscular Volume 84.9 fl (80-100); Mean Platelet Volume 10.3 fl (7.4-10.4); Platelet Count Result 182 k/mm3 (150-375); Red Blood Count 4.58 M/mm3 (4.6-6.20); White Blood Count 6.4 K/mm3 (4.5-10.0)
[2022-01-27 06:27] LABS: Anion Gap 7 mmol/L (8-16); Blood Urea Nitrogen 11 mg/dL (9-20); Calcium 8.6 mg/dL (8.4-10.2); Carbon Dioxide 25 mmol/L (22-30); Chloride 105 mmol/L (98-107); Estimated CRCL calculation 112 ml/min; Estimated Glomerular Filt Rate > 60; Glucose 101 mg/dL (65-110); Potassium 3.5 mmol/L (3.4-5.0); Sodium 137 mmol/L (137-145)
[2022-01-27 08:00] VITALS: PULSE 65; RESP 18; O2SAT 97
--- NOTE | 2022-01-27 16:40 | PM.DS ---
DS: Admitting Diagnosis Discharge Date 01/27/22 Admitting Diagnosis Perforated sigmoid diverticulitis DS: Discharge Diagnosis Discharge Diagnosis (1) Diverticulitis of intestine with perforation and abscess without bleeding: Qualifiers: Diverticulitis site: large intestine Qualified Code(s): K57.20 - Diverticulitis of large intestine with perforation and abscess without bleeding Code(s): K57.80 - Diverticulitis of intestine, part unspecified, with perforation and abscess without bleeding Status: Acute (2) Obesity (BMI 30-39.9): Code(s): E66.9 - Obesity, unspecified Status: Acute DS: Summary Hospital Course Reason for hospitalization: Recurrent perforated sigmoid diverticulitis Hospital Course: This is a 36-year-old man who had a recent history of diverticulitis with perforation and abscess. He was treated with IV antibiotics and had a prolonged hospital stay but eventually was able to be discharged home without requiring surgery. He was doing well for about 4 weeks and there were plans to proceed with colonoscopy this week, but over the weekend patient began experiencing recurrent pains and fevers. He was started on moxifloxacin over the weekend but after taking several doses he still was not feeling any better. A CT of his abdomen and pelvis was obtained on 01/25/2022 and this showed evidence of recurrent diverticulitis with a small guerline diverticular abscess and possible entero colonic fistulas. A CBC was also drawn and this showed an elevated white blood count. He was directly admitted and was kept on clear liquid diet. IV Zosyn was started. On 01/26/2022 his pain was improving and his white blood count had normalized. He was remaining afebrile since being admitted. He was advanced to a full liquid diet. On 01/27/2022, his pain was gradually improving and he was able to be advanced to a low-fiber diet. He was remaining hemodynamically stable and his white count was remaining normal. He was then discharged on 01/27/2022 on a low-fiber diet. He was discharged on Augmentin and Flagyl with plans to stay on the Augmentin for possibly 4 weeks and plan for interval sigmoid colectomy. Status at Discharge Functional status at discharge: independent ambulation Overall status at discharge: patient is back to baseline Time Spent with Patient Time attestation: Total time spent providing and/or coordinating discharge services: Time spent: Less than 30 minutes Exam Const: General: cooperative, no acute distress and alert Orientation/consciousness: patient oriented x3 Resp: Effort & Inspection: normal respiratory effort Auscultation: clear to auscultation bilaterally Cardio: Jugular venous distension: no JVD Rate: regular rate Rhythm: regular rhythm Heart sounds: S1 normal heart sound present and S2 normal heart sound present GI: Inspection: non-distended and obesity GI Palp: Yes Soft to palpation, No Tenderness to palpation present (GI), No Guarding due to palpation present (GI) and No Rebound tenderness present Percussion: Yes normal to percussion Auscultation: normal bowel sounds DS: Data Data Completed and Pending Labs on day of discharge: Labs from last 24 hours 01/27/22 01/27/22 05:49 05:49 WBC 6.4 RBC 4.58 L Hgb 12.9 L Hct 38.9 L MCV 84.9 MCH 28.2 MCHC 33.2 RDW 14.0 Plt Count 182 MPV 10.3 Sodium 137 Potassium 3.5 Chloride 105 Carbon Dioxide 25 Anion Gap 7 L BUN 11 Creatinine 1.00 Estim Creat Clear Calc 112 Estimated GFR > 60 Glucose 101 Calcium 8.6 Discharge Plan Discharge Attending physician on discharge: Enzo Flowers Discharging Clinician: Enzo Flowers Patient Disposition: Home, Self-Care Activity: as tolerated Diet: low fiber Patient Instructions: Antibiotic Form, How to Stop Smoking (DC) Stand Alone Forms: General Discharge Information, Work/School Release IP Follow-up/Referrals
== END 2022-01-27 13:46 | disposition home or self-care (01) | DRG 392 ==
PROVIDERS: Nurse Practitioner Family; Admitting Provider Surgery; PCP Family Medicine; Visit Provider Surgery
DX: K57.20 Diverticulitis of large intestine with perforation and abscess without bleeding (principal); E66.9 Obesity, unspecified; Z68.36 Body mass index [BMI] 36.0-36.9, adult; Z87.891 Personal history of nicotine dependence
CPT/HCPCS: 36415; 36569; 74177; 80048; 85025; 85027; C1751; J0131; J2270; J2405; J2543; J7030; Q9967

== ENCOUNTER 2022-02-23 09:41 | Outpatient (CLI) | payer OTHER, SELFPAY ==
--- NOTE | 2022-02-23 10:41 | ECG_ITS ---
Measurements Intervals [place] Rate: 63 P: 22 AR: 169 QRS: 3 QRSD: 83 T: 3 QT: 371 QTc: 380 Interpretive Statements SINUS RHYTHM BORDERLINE T WAVE ABNORMALITY- INFERIOR LEADS BASELINE ARTIFACT- I, III, AVR, AVL, AVF, V1 BORDERLINE ECG Electronically Signed On 02-23-2022 10:53:50 CDT by Yeison Sánchez D.O.
== END 2022-02-23 09:42 | disposition home or self-care (01) ==
LOC: ANHSURGERY 09:45
PROVIDERS: PCP Family Medicine; Visit Provider Surgery
DX: K57.80 Diverticulitis of intestine, part unspecified, with perforation and abscess without bleeding (principal)
CPT/HCPCS: 36415; 86850; 86900; 86901; 93005

== ENCOUNTER 2022-03-01 17:18 | Inpatient (IN) | payer OTHER, SELFPAY ==
[2022-02-23 10:08] VITALS: BP 127/72; PULSE 68; RESP 16; TEMP 36.6; O2SAT 98; BMI 36.1
--- NOTE | 2022-02-23 10:19 | PC.NURSE ---
Report to the Outpatient Waiting Room, entrance under the green pavilion located off [facility], at time _10:00AM on date __03/01/22 . OR Time: _12:00PM . - You and your visitor will be asked a series of questions to screen for COVID 19 for your protection. - Only one visitor is allowed at this time. - The patient visitor is requested to leave or wait in car when not with patient. - A mask is required within the hospital. Patients may have clear liquids (water, carbonated beverages, clear teas, apple juice) until 3 hours prior to surgery with a maximum of 20 ounces. - No food from midnight until time of surgery - Infants may have breast milk until 4 hours before surgery, infant formula 6 hours prior to surgery. - Children will be allowed to drink immediately following surgery. If applicable, please bring a bottle or sippy cup to assist with drinking. Juice, water, soda, and popsicles are readily available. For infants on formula, please bring formula the day of surgery. Pacifiers are allowed. Take the following medications with a SIP of water the morning of surgery: __AMOXICILLIN/CLAVULANATE Medications to discontinue per physician ___NONE Date to take last dose Please no make-up, nail kyrgyz, hairspray, perfume, deodorant, or body powder the day of surgery. No jewelry (including any body piercings) or valuables the day of surgery, leave them at home. Please take a shower or bath the night before, or the morning of, surgery with an antibacterial soap. Wear comfortable, loose fitting clothing. Children are encouraged to wear pajamas. - Jewelry must be removed prior to entering the operating room. Rings and piercings that are not removed may be cut off. - The hospital will not accept responsibility for valuables. - Please leave all valuables, including medications, at home the day of surgery. If you are going home after surgery, a licensed maintenance truck driver must drive you home. - NO public transportation without another adult. - We recommend that an adult stay with you for 24 hours following discharge. - We also recommend that you do not drive, make important decision, drink alcoholic beverages, or take any drugs that were not prescribed by your health care provider for at least 24 hours after your discharge time. For Pediatric surgeries, we recommend two adults accompany the child home (only one inside the building at this time). Follow any additional instructions given to you from your surgeon. If you or anyone in your household have experienced Covid symptoms in the past week, please notify your surgeon or the nurse liaison at the phone number below for possible testing. Telephone instructions given to __PATIENT and asked if any additional questions and then verbalized understanding. Patient advised to call surgeon office or pre surgery nurse liaison [phone] if any additional questions.
[2022-03-01] VITALS (11 sets, daily range): BP systolic 118–145; BP diastolic 69–86; PULSE 72–100; RESP 12–20; TEMP 36.2–37.1; O2SAT 95–100; BMI 35.2
--- NOTE | 2022-03-01 10:27 | WPDANESEPPF ---
Anes - Initial Pre Proc Eval Procedure: Operation Date: 03/01/22 12:00 Proposed Procedures p Hand Assisted Laparoscopic Sigmoid Colectomy, Possible Open, Possible Ostomy - Enzo Flowers DO Date/Time: 03/01/22 10:27 Surgeon: Enzo Flowers DO Pre Op Diagnosis: diverticulitis with perforation and abscess Patient Data Age: 36 Gender: M Height: 1.75 m Weight: 111.1 kg Last Vital Signs Temp 36.6 C 02/23/22 10:08 Pulse 68 02/23/22 10:08 Resp 16 02/23/22 10:08 BP 127/72 02/23/22 10:08 Pulse Ox 98 02/23/22 10:08 Allergies Allergy/AdvReac Type Severity Reaction Status Date / Time No Known Allergies Allergy Verified 02/23/22 10:04 Home Medications Medication Instructions Recorded Confirmed Type amoxicillin-pot clavulanate 1 tablet PO Q12H 28 Days #56 tablet 01/27/22 02/23/22 Rx hydrocodone-acetaminophen 1 tablet PO Q4H PRN #10 tablet 01/27/22 02/23/22 Rx erythromycin 500 mg tablet See Rx Instructions .ROUTE 02/01/22 02/23/22 Rx .COMPLEX #6 tablet neomycin 500 mg tablet See Rx Instructions .ROUTE 02/01/22 02/23/22 Rx .COMPLEX #6 tablet Patient hx anesthesia problems: none Family hx anesthesia problems: none Results Review: All pre-operative results and documents have been reviewed as part of the pre-operative evaluation. [facility] Past Medical History Medical History History of diverticulitis of colon Surgical History Surgical History History of tonsillectomy Family History Family History Mother Diabetes mellitus Pancreatitis Other Chronic obstructive pulmonary disease Social History Social History Social History: The patient lives with his who is a surgical services assistant here. She is his durable power proj engineer for healthcare. The patient has 3 children. He is currently employed at [employer] and is a former smoker. Socially drinks alcohol. Code status full code Smoking packs per day: 2 Smoking cigarettes per day: 40.0 Years smoked: 5 Smoking pack-years: 10.00 Smoking status: Former smoker Tobacco type: cigarettes Second hand tobacco smoke exposure: Yes Smoking end date: 04/23/18 Alcohol intake: current Drinks per week: 5 Alcohol use details: NOT DRINKING SINCE DIVERTICULITIS DX Substance use: never Living arrangements: with family Additional living arrangements comments: AND CHILDREN Spiritual care concerns: No Anes - Eval Final PreProcedure Day of Procedure 03/01/22 10:27 Patient weight: obese Heart: regular rate and rhythm Lungs: clear to auscultation Airway: Mallampati scale class II Neurological: alert and oriented Last oral intake: >/= 8 hours ASA classification: III Emergent: no Anesthetic plan: proceed Anesthesia type and monitoring: general ETT and standard monitoring Results Review: All pre-operative results and documents have been reviewed as part of the pre-operative evaluation. Informed Consent: The patient's anesthetic plan and its attendant risks and benefits were discussed with the patient/family/POA. Questions were solicited and answers provided to the satisfaction of the patient/family/POA.
[2022-03-01] MEDS: ACETAMINOPHEN 500 MG TABLET 1000 MG PO ×2 (10:28→17:50)
[2022-03-01] MEDS: KETOROLAC 15 MG/ML VIAL (*BKC) IV PUSH (10:35)
[2022-03-01] MEDS: LACTATED RINGERS 1,000 ML 30 ML IV CONT ×2 (10:41→15:58)
--- NOTE | 2022-03-01 11:12 | WPDHPUPDATE1 ---
History and Physical Update Update Date/Time: 03/01/22 11:12 History and Physical has been reviewed, including an updated exam of the patient. There are NO changes in the patient's condition. Risks, benefits, and alternatives have been discussed and questions answered. Patient agrees to proceed with procedure.
[2022-03-01] MEDS: ceFAZolin 2 GM/D5W 50 ML 2 GM/50 ML BAG IVPB (11:50)
[2022-03-01] MEDS: metroNIDAZOLE 500 MG/ISO 100ML 500 MG/100 ML BAG 100 MG IVPB (11:52)
--- NOTE | 2022-03-01 13:52 | SUR.OPER ---
3cc of PinPoint ICG Dye given per anesthesia 1352 IV push.
--- NOTE | 2022-03-01 14:25 | SUR.OPER ---
bilateral knee remain flexed and positioning unchanged
--- NOTE | 2022-03-01 15:10 | SUR.OPER ---
ICG Dye repeated per anesthesia post anastamosis see anesthesia record.
--- NOTE | 2022-03-01 16:08 | W.PM.PROC2 ---
Procedure Note - Detailed Date of Procedure 03/01/22 Pre-op Diagnosis diverticulitis with perforation and abscess Post-op Diagnosis Same Procedure Performed 1. Hand assisted laparoscopic sigmoid colectomy with colorectal anastomosis 2. Laparoscopic mobilization splenic flexure Surgeon Enzo Flowers, DO Anesthesia General and Local (Exparel) Indications This is a 36-year-old man who presented with recurrent episodes of sigmoid diverticulitis. His 1st episode was in June of 2021 and was able to be treated with a short course of oral antibiotics. He then had another episode in November of 2021 and this time had to be hospitalized and eventually developed an abscess. He had a prolonged hospitalization due to partial bowel obstruction and a fairly sizable abscess. He eventually was able to be discharged and was doing well for about 2 months. He was scheduled to have a colonoscopy, but about 5 days before his colonoscopy he had another flare-up of diverticulitis and had to be hospitalized for 2 days. He was then kept on oral antibiotics when he was discharged and decision was then made to proceed with hand assisted laparoscopic sigmoid colectomy, possible open, possible ostomy. Findings Hand assisted laparoscopic sigmoid colectomy was performed. The patient was found to have multiple small bowel adhesions up to the segment of the sigmoid colon where the abscess and perforation was previously located. The small bowel was also adherent to the lower midline abdominal wall just inferior to the umbilicus. These adhesions came down with blunt dissection, and I was able to carefully free up all of the adhesions around the small bowel and sigmoid colon. There did not appear to be any active abscess or evidence of fistula or small bowel injury. This appeared to involve the distal ileum about 20 cm proximal to the ileocecal valve. The remainder of the small bowel appeared to be uninvolved. The descending colon and rectum appeared healthy and viable. The sigmoid colon was resected beyond the rectosigmoid junction. I did have to mobilize the splenic flexure to bring enough descending colon down into the pelvis to perform a tension-free colorectal anastomosis. A 28 mm EEA stapler was chosen to perform the anastomosis. Indocyanine green was used to assess perfusion to the descending colon and rectum prior to our resection. After completing the anastomosis indocyanine green was also infused again to assess the anastomosis. There appeared to be adequate perfusion to the anastomosis. Leak check was then performed by filling the pelvis with sterile saline and insufflating the rectum through a rigid proctoscope. No air bubbles were visualized. The anastomosis appeared healthy from the rigid proctoscopy and the anastomotic rings appeared intact. The sigmoid colon was sent to the lab for pathology. Description of Procedure Procedure as well as risks benefits and alternatives were explained to the patient. Written consent was obtained and placed in chart prior to procedure. Patient was brought back to surgical suite. He was placed supine on operating table. Time-out was done to confirm patient procedure. He was then intubated by the anesthesia department. He was re-positioned to modified lithotomy position. His abdomen was prepped and draped in sterile fashion using chlorhexidine prep. His rectum was irrigated with Betadine and his perirectal area was prepped and draped in sterile fashion using Betadine prep. A 7 centimeter vertical incision was made centered on the umbilicus using a 15 blade scalpel. Electrocautery was used for hemostasis and for dissection down through Evy's fascia. The linea alba was then incised using electrocautery. The peritoneum was bluntly entered using a curved hemostats. A carefully inspected the abdomen through the small hand port incision, and then placed the wound protector at this incision followed by the gel port with a 5 mi
[2022-03-01] MEDS: HYDROmorphone HCL INJ (*CRX) 1 MG/ML SYR 0.5 MG IV PUSH ×6 (16:22→21:29)
[2022-03-01] MEDS: LACTATED RINGERS 1,000 ML 125 ML IV CONT (17:50)
--- NOTE | 2022-03-01 18:25 | ADMGEN ---
This patient, Hernandez Clayton, was admitted to Medical Room 341-01. Patient/family oriented to hospital policies and general routines including ID bracelet, bed and alarms, visiting hours, pain management, procedures, bathroom and other care routines, personal items, smoking policy, room service/diet, and visiting hours. Information on how to activate the Rapid Response Team has been discussed. Patient/Family are encouraged to report perceived risks to care and to ask questions if they do not understand what they are told or what they should do.
[2022-03-01] MEDS: HYDROmorphone HCL INJ (*CRX) 1 MG/ML SYR IV PUSH (19:35)
[2022-03-02 02:42] VITALS: BP 116/59; PULSE 98; RESP 16; TEMP 36.6; O2SAT 96
[2022-03-02 04:28] VITALS: BP 112/61; PULSE 66; RESP 16; TEMP 37.1; O2SAT 97
[2022-03-02] MEDS: ACETAMINOPHEN 500 MG TABLET 1000 MG PO ×5 (04:32→23:38)
[2022-03-02 06:29] LABS: Basophils Percent Auto 0.2 % (0.2-1.2); Eosinophils Percent Auto 0.1 % (0-4.4); Hematocrit 41.3 % (42.0-52.0); Hemoglobin 14.6 g/dL (14.0-18.0); Immature Granulocyte Absolute 0.08 K/mm3 (0.00-0.031); Immature Granulocyte Percent A 0.6 % (0-0.5); Lymphocytes Absolute Auto 1.42 K/mm3 (0.9-3.2); Lymphocytes Percent Auto 10.7 % (18.3-44.2); Mean Corpuscular HGB Conc 35.4 g/dl (32-36); Mean Corpuscular Hemoglobin 28.5 pg (26-34); Mean Corpuscular Volume 80.5 fl (80-100); Mean Platelet Volume 11.1 fl (7.4-10.4); Monocytes Percent Auto 7.4 % (2.6-8.5); Neutrophils Absolute Auto 10.8 K/mm3 (1.3-6.7); Platelet Count Result 194 k/mm3 (150-375); Red Blood Count 5.13 M/mm3 (4.6-6.20); Red Cell Distribution Width 13.8 % (11.5-14.5); White Blood Count 13.3 K/mm3 (4.5-10.0)
[2022-03-02 06:51] LABS: Anion Gap 9 mmol/L (8-16); Blood Urea Nitrogen 12 mg/dL (9-20); Calcium 8.6 mg/dL (8.4-10.2); Carbon Dioxide 22 mmol/L (22-30); Chloride 104 mmol/L (98-107); Estimated CRCL calculation 125 ml/min; Estimated Glomerular Filt Rate > 60; Glucose 121 mg/dL (65-110); Potassium 4.2 mmol/L (3.4-5.0); Sodium 135 mmol/L (137-145)
--- NOTE | 2022-03-02 07:57 | WPDANESPN ---
Anes - Prog Note Post-Op Date/Time: 03/02/22 07:57 Cardiovascular status: normal Respiratory status: normal Airway patency: baseline Mental status: baseline Post-Op hydration status: normal Vital Signs: Last Vital Signs Temp 37.1 C 03/02/22 04:28 Pulse 66 03/02/22 04:28 Resp 16 03/02/22 04:28 BP 112/61 03/02/22 04:28 Pulse Ox 97 03/02/22 04:28 Pain Score (VAS): 5 I/O: Intake & Output 03/01/22 03/01/22 03/02/22 15:59 23:59 07:59 Intake Total 155 704 5718 Output Total 55 1950 Balance 150 795 -450 Laboratory Tests 03/02/22 05:36 03/02/22 05:36 03/02/22 03/02/22 05:36 05:36 WBC 13.3 H RBC 5.13 Hgb 14.6 Hct 41.3 L MCV 80.5 MCH 28.5 MCHC 35.4 RDW 13.8 Plt Count 194 MPV 11.1 H Immature Gran % (Auto) 0.6 H Neut % (Auto) 81.0 H Lymph % (Auto) 10.7 L [place] % (Auto) 7.4 Eos % (Auto) 0.1 Baso % (Auto) 0.2 Lymph # (Auto) 1.42 [place] # (Auto) 1.0 H Eos # (Auto) 0.0 Baso # (Auto) 0.0 Abs Immat Gran (auto) 0.08 H Absolute Neuts (auto) 10.8 H Absolute Nucleated RBC 0.0 Nucleated RBC % 0.0 Sodium 135 L Potassium 4.2 Chloride 104 Carbon Dioxide 22 Anion Gap 9 BUN 12 Creatinine 0.90 Estim Creat Clear Calc 125 Estimated GFR > 60 Glucose 121 H Calcium 8.6 Post-procedural complaints: none Patient Feedback: Patient satisfied with anesthetic care.
[2022-03-02] MEDS: ENOXAPARIN 40 MG/0.4 ML SYRINGE SUB-Q (08:26)
[2022-03-02] MEDS: LACTATED RINGERS 1,000 ML 125 ML IV CONT ×2 (08:26)
[2022-03-02] MEDS: HYDROmorphone HCL INJ (*CRX) 1 MG/ML SYR IV PUSH ×4 (10:14→20:33)
[2022-03-02 10:39] VITALS: BP 117/72; PULSE 76; RESP 18; TEMP 37.1; O2SAT 95
[2022-03-02 10:45] VITALS: BMI 37.8
[2022-03-02] MEDS: ONDANSETRON INJ 4 MG/2 ML VIAL IV PUSH (11:45)
--- NOTE | 2022-03-02 12:05 | PM.PNGS ---
Progress Note: A&P Assessment and Plan (1) Diverticulitis of intestine with perforation and abscess without bleeding: Qualifiers: Diverticulitis site: large intestine Qualified Code(s): K57.20 - Diverticulitis of large intestine with perforation and abscess without bleeding Code(s): K57.80 - Diverticulitis of intestine, part unspecified, with perforation and abscess without bleeding Status: Acute Assessment and Plan: Developed some shoulder pain this morning, which is his main complaint. This is likely related to the CO2 insufflation from the recent laparoscopic surgery. Encouraged him to try getting up and walking the halls. Continue to monitor. Continue clear liquids. Soto catheter removed today. Repeat labs tomorrow. Pathology pending. Additional Plan I have discussed the plan of care with Dr. Flowers. Subjective Subjective Date/Time Seen: 03/02/22 12:06 Post Op day: 1 (JEF sigmoid colectomy, laparoscopic mobilization of splenic flexure) Patient reports: no flatus, no bowel movement and nausea Interval history: Patient seen and examined. His main complaint right now is bilateral shoulder pain that started about 1/2 hour ago. He reports his incisional pain has been well controlled through the night. He did have some nausea this morning as well, and he just recently received Zofran. No vomiting. He denies chest pain or shortness of breath. Soto was recently removed and he has not yet voided after removal. Review of Systems Review of Systems: All systems reviewed & are unremarkable except as noted in HPI and below Constitutional: Constitutional: Reports as per HPI, Reports no additional constitutional complaints, Denies chills and Denies fever(s) Cardiovascular: Cardiovascular: Reports no additional cardiovascular complaints, Denies chest pain and Denies leg edema Respiratory: Respiratory: Reports no additional respiratory complaints, Denies cough and Denies dyspnea Gastrointestinal: Gastrointestinal: Reports as per HPI and Reports no additional gastrointestinal complaints Exam Const: General: no acute distress, awake and uncomfortable Orientation/consciousness: patient oriented x3 Resp: Effort & Inspection: normal respiratory effort Auscultation: clear to auscultation bilaterally Cardio: Rate: regular rate Rhythm: regular rhythm GI: Inspection: non-distended and incision (Abdominal incisions dry and intact) GI Palp: Yes Soft to palpation and Yes Tenderness to palpation present (GI) (incisional) Auscultation: Hypoactive bowel sounds present Neuro: General: moves all extremities and no focal motor deficits Extrem: General: no clubbing, cyanosis or edema and no calf tenderness Psych: Insight: Good insight present (Psych) Judgement: Good judgement present (Psych) Objective Data Vital Signs Vital Signs: Vital Signs - 24 hr 03/01/22 15:57 03/01/22 16:12 03/01/22 16:27 Temperature 97.2 F L Pulse Rate 100 75 87 Respiratory Rate 17 14 19 Blood Pressure 145/86 H 133/80 129/85 Pulse Oximetry 100 99 99 03/01/22 16:42 03/01/22 16:57 03/01/22 17:11 Temperature 97.9 F Pulse Rate 87 91 85 Respiratory Rate 16 16 17 Blood Pressure 145/86 H 127/83 121/83 Pulse Oximetry 95 95 96 03/01/22 17:35 03/01/22 17:50 03/01/22 18:20 Temperature 98.6 F 98.5 F 98.7 F Pulse Rate 90 91 77 Respiratory Rate 20 16 18 Blood Pressure 122/73 125/82 118/71 Pulse Oximetry 97 99 97 03/01/22 19:20 03/02/22 02:42 03/02/22 04:28 Temperature 97.8 F 98 F 98.7 F Pulse Rate 72 98 66 Respiratory Rate 18 16 16 Blood Pressure 132/69 116/59 L 112/61 Pulse Oximetry 97 96 97 03/02/22 10:39 Temperature 98.7 F Pulse Rate 76 Respiratory Rate 18 Blood Pressure 117/72 Pulse Oximetry 95 Intake/Output Intake/Output: Intake & Output 02/27/22 02/28/22 03/01/22 03/02/22 23:59 23:59 23:59 23:59 Intake Total 1000 2740 Output Total 55 3100 Balance 945 -360 Meds/Results Medicati
[2022-03-02 14:19] VITALS: BP 136/86; PULSE 83; RESP 18; TEMP 37.1; O2SAT 96
[2022-03-02 19:03] VITALS: BP 113/61; PULSE 92; RESP 18; TEMP 37.3; O2SAT 93
[2022-03-02 22:00] VITALS: BP 113/61; PULSE 92; RESP 18; TEMP 37.3; O2SAT 93
[2022-03-02] MEDS: HYDROmorphone HCL INJ (*CRX) 1 MG/ML SYR 0.5 MG IV PUSH (23:37)
[2022-03-02] MEDS: LACTATED RINGERS 1,000 ML 50 ML IV CONT (23:42)
[2022-03-03 05:14] VITALS: BP 132/75; PULSE 86; RESP 18; TEMP 36.3; O2SAT 94
[2022-03-03 05:38] LABS: Hematocrit 38.4 % (42.0-52.0); Hemoglobin 13.1 g/dL (14.0-18.0); Mean Corpuscular HGB Conc 34.1 g/dl (32-36); Mean Corpuscular Hemoglobin 28.1 pg (26-34); Mean Corpuscular Volume 82.4 fl (80-100); Mean Platelet Volume 10.8 fl (7.4-10.4); Platelet Count Result 151 k/mm3 (150-375); Red Blood Count 4.66 M/mm3 (4.6-6.20); Red Cell Distribution Width 14.4 % (11.5-14.5); White Blood Count 9.5 K/mm3 (4.5-10.0)
[2022-03-03] MEDS: HYDROmorphone HCL INJ (*CRX) 1 MG/ML SYR IV PUSH ×5 (05:39→19:44)
[2022-03-03] MEDS: ACETAMINOPHEN 500 MG TABLET 1000 MG PO ×4 (05:40→23:03)
[2022-03-03 05:48] LABS: Anion Gap 3 mmol/L (8-16); Blood Urea Nitrogen 8 mg/dL (9-20); Calcium 8.5 mg/dL (8.4-10.2); Carbon Dioxide 28 mmol/L (22-30); Chloride 103 mmol/L (98-107); Estimated CRCL calculation 124 ml/min; Estimated Glomerular Filt Rate > 60; Glucose 102 mg/dL (65-110); Potassium 3.7 mmol/L (3.4-5.0); Sodium 134 mmol/L (137-145)
[2022-03-03] MEDS: ENOXAPARIN 40 MG/0.4 ML SYRINGE SUB-Q (08:46)
--- NOTE | 2022-03-03 10:42 | PM.PNGS ---
Progress Note: A&P Assessment and Plan (1) Diverticulitis of intestine with perforation and abscess without bleeding: Qualifiers: Diverticulitis site: large intestine Qualified Code(s): K57.20 - Diverticulitis of large intestine with perforation and abscess without bleeding Code(s): K57.80 - Diverticulitis of intestine, part unspecified, with perforation and abscess without bleeding Status: Acute Assessment and Plan: Advance to full liquids today Transition to oral pain meds Increase activity Await bowel function Subjective Subjective Date/Time Seen: 03/03/22 10:42 Interval history: No flatus or BM yet. Tolerating clears. Hungry. No nausea or vomiting. Pain controlled and ambulating without much difficulty. Exam GI: Inspection: non-distended and incision (intact with glue) GI Palp: Yes Soft to palpation, Yes Tenderness to palpation present (GI) (incisional) and No Guarding due to palpation present (GI) Auscultation: normal bowel sounds Objective Data Vital Signs Vital Signs: Vital Signs - 24 hr 03/02/22 14:19 03/02/22 19:03 03/02/22 22:00 Temperature 37.1 C 37.3 C 37.3 C Pulse Rate 83 92 92 Respiratory Rate 18 18 18 Blood Pressure 136/86 113/61 113/61 Pulse Oximetry 96 93 93 03/03/22 05:14 Temperature 36.3 C L Pulse Rate 86 Respiratory Rate 18 Blood Pressure 132/75 Pulse Oximetry 94 Intake/Output Intake/Output: Intake & Output 02/28/22 03/01/22 03/02/22 03/03/22 23:59 23:59 23:59 23:59 Intake Total 1000 4460 480 Output Total 55 4150 500 Balance 945 310 -20 Meds/Results Medications: Active Medications Generic Name Dose Route Start Last Admin Trade Name Freq PRN Reason Stop Dose Admin Acetaminophen 1,000 mg 03/01/22 17:18 03/03/22 05:40 Acetaminophen 500 Mg Tablet PO 1,000 mg Q6H ANDREW Administration Enoxaparin Sodium 40 mg 03/02/22 09:00 03/03/22 08:46 Enoxaparin 40 Mg/0.4 Ml Syringe SUB-Q 40 mg DAILY ANDREW Administration Hydromorphone HCl 1 mg 03/01/22 17:18 03/03/22 08:45 Hydromorphone Hcl Inj (*Crx) 1 Mg/Ml Syr IV PUSH 1 mg Q2H PRN Administration Pain Rated 7-10 Hydromorphone HCl 0.5 mg 03/01/22 17:18 03/02/22 23:37 Hydromorphone Hcl Inj (*Crx) 1 Mg/Ml Syr IV PUSH 0.5 mg Q2H PRN Administration Pain Rated 4-6 Ondansetron HCl 4 mg 03/01/22 17:18 03/02/22 11:45 Ondansetron Inj 4 Mg/2 Ml Vial IV PUSH 4 mg Q4H PRN Administration Nausea And Vomiting Oxycodone HCl 2.5 mg 03/03/22 10:37 Oxycodone Hcl (*Crx) 2.5 Mg Tab Ir PO Q4H PRN Pain Rated 4-6 Oxycodone HCl 5 mg 03/03/22 10:37 Oxycodone Hcl (*Crx) 5 Mg Tab Ir PO Q4H PRN Pain Rated 7-10 Labs Labs: Laboratory Results - last 24 hr 03/03/22 03/03/22 05:19 05:19 WBC 9.5 RBC 4.66 Hgb 13.1 L Hct 38.4 L MCV 82.4 MCH 28.1 MCHC 34.1 RDW 14.4 Plt Count 151 MPV 10.8 H Sodium 134 L Potassium 3.7 Chloride 103 Carbon Dioxide 28 Anion Gap 3 L BUN 8 L Creatinine 0.90 Estim Creat Clear Calc 124 Estimated GFR > 60 Glucose 102 Calcium 8.5
[2022-03-03 14:00] VITALS: BP 133/65; PULSE 100; RESP 16; TEMP 37.3; O2SAT 93
[2022-03-03] MEDS: oxyCODONE HCL (*CRX) 5 MG TAB IR PO ×2 (17:17→23:05)
[2022-03-03 21:35] VITALS: O2SAT 92
[2022-03-03 22:00] VITALS: BP 126/76; PULSE 108; RESP 18; TEMP 38.1; O2SAT 94
[2022-03-04] MEDS: HYDROmorphone HCL INJ (*CRX) 1 MG/ML SYR IV PUSH ×4 (02:09→17:32)
[2022-03-04] MEDS: ACETAMINOPHEN 500 MG TABLET 1000 MG PO ×2 (05:35→12:06)
[2022-03-04 05:48] LABS: Hematocrit 38.4 % (42.0-52.0); Hemoglobin 13.1 g/dL (14.0-18.0); Mean Corpuscular HGB Conc 34.1 g/dl (32-36); Mean Corpuscular Hemoglobin 28.5 pg (26-34); Mean Corpuscular Volume 83.5 fl (80-100); Mean Platelet Volume 10.9 fl (7.4-10.4); Platelet Count Result 155 k/mm3 (150-375); Red Cell Distribution Width 14.2 % (11.5-14.5); White Blood Count 8.6 K/mm3 (4.5-10.0)
[2022-03-04 05:57] LABS: Anion Gap 5 mmol/L (8-16); Blood Urea Nitrogen 9 mg/dL (9-20); Calcium 8.6 mg/dL (8.4-10.2); Carbon Dioxide 28 mmol/L (22-30); Chloride 99 mmol/L (98-107); Estimated CRCL calculation 124 ml/min; Estimated Glomerular Filt Rate > 60; Glucose 107 mg/dL (65-110); Potassium 3.6 mmol/L (3.4-5.0); Sodium 132 mmol/L (137-145)
[2022-03-04 06:00] VITALS: BP 134/74; PULSE 88; RESP 18; TEMP 37.1; O2SAT 94
[2022-03-04] MEDS: ENOXAPARIN 40 MG/0.4 ML SYRINGE SUB-Q (08:55)
[2022-03-04 14:00] VITALS: BP 133/73; PULSE 97; RESP 20; TEMP 36.2; O2SAT 96
[2022-03-04 14:32] VITALS: O2SAT 92
--- NOTE | 2022-03-04 15:58 | PM.PNGS ---
Progress Note: A&P Assessment and Plan (1) Diverticulitis of intestine with perforation and abscess without bleeding: Qualifiers: Diverticulitis site: large intestine Qualified Code(s): K57.20 - Diverticulitis of large intestine with perforation and abscess without bleeding Code(s): K57.80 - Diverticulitis of intestine, part unspecified, with perforation and abscess without bleeding Status: Acute Assessment and Plan: Continue full liquids today, might advance to soft diet tomorrow if improving Increase activity Possibly home in 1-2 days if improving. Subjective Subjective Date/Time Seen: 03/04/22 15:58 Interval history: Bowels moving. Still having some right shoulder pain. Also having some epigastric pain today. A little bloated but tolerating liquids so far. Oxycodone not helping with pain so still using Dilaudid. Exam GI: Inspection: non-distended and incision (intact with glue) GI Palp: Yes Soft to palpation, Yes Tenderness to palpation present (GI) (epigastric) and No Guarding due to palpation present (GI) Auscultation: normal bowel sounds Objective Data Vital Signs Vital Signs: Vital Signs - 24 hr 03/03/22 21:35 03/03/22 22:00 03/04/22 06:00 Temperature 38.1 C H 37.1 C Pulse Rate 108 H 88 Respiratory Rate 18 18 Blood Pressure 126/76 134/74 Pulse Oximetry 92 94 94 03/04/22 14:00 03/04/22 14:32 Temperature 36.2 C L Pulse Rate 97 Respiratory Rate 20 Blood Pressure 133/73 Pulse Oximetry 96 92 Intake/Output Intake/Output: Intake & Output 03/01/22 03/02/22 03/03/22 03/04/22 23:59 23:59 23:59 23:59 Intake Total 1000 4460 1390 780 Output Total 55 4150 700 750 Balance 945 310 690 30 Meds/Results Medications: Active Medications Generic Name Dose Route Start Last Admin Trade Name Freq PRN Reason Stop Dose Admin Acetaminophen 1,000 mg 03/01/22 17:18 03/04/22 12:06 Acetaminophen 500 Mg Tablet PO 1,000 mg Q6H ANDREW Administration Enoxaparin Sodium 40 mg 03/02/22 09:00 03/04/22 08:55 Enoxaparin 40 Mg/0.4 Ml Syringe SUB-Q 40 mg DAILY ANDREW Administration Hydromorphone HCl 1 mg 03/01/22 17:18 03/04/22 13:28 Hydromorphone Hcl Inj (*Crx) 1 Mg/Ml Syr IV PUSH 1 mg Q2H PRN Administration Pain Rated 7-10 Hydromorphone HCl 0.5 mg 03/01/22 17:18 03/02/22 23:37 Hydromorphone Hcl Inj (*Crx) 1 Mg/Ml Syr IV PUSH 0.5 mg Q2H PRN Administration Pain Rated 4-6 Ondansetron HCl 4 mg 03/01/22 17:18 03/02/22 11:45 Ondansetron Inj 4 Mg/2 Ml Vial IV PUSH 4 mg Q4H PRN Administration Nausea And Vomiting Oxycodone HCl 2.5 mg 03/03/22 10:37 Oxycodone Hcl (*Crx) 2.5 Mg Tab Ir PO Q4H PRN Pain Rated 4-6 Oxycodone HCl 5 mg 03/03/22 10:37 03/03/22 23:05 Oxycodone Hcl (*Crx) 5 Mg Tab Ir PO 5 mg Q4H PRN Administration Pain Rated 7-10 Labs Labs: Laboratory Results - last 24 hr 03/04/22 03/04/22 05:19 05:19 WBC 8.6 RBC 4.60 Hgb 13.1 L Hct 38.4 L MCV 83.5 MCH 28.5 MCHC 34.1 RDW 14.2 Plt Count 155 MPV 10.9 H Sodium 132 L Potassium 3.6 Chloride 99 Carbon Dioxide 28 Anion Gap 5 L BUN 9 Creatinine 0.90 Estim Creat Clear Calc 124 Estimated GFR > 60 Glucose 107 Calcium 8.6
[2022-03-04] MEDS: ONDANSETRON INJ 4 MG/2 ML VIAL IV PUSH (17:33)
[2022-03-04 20:00] VITALS: PULSE 97; RESP 20; O2SAT 92
[2022-03-04] MEDS: oxyCODONE HCL (*CRX) 5 MG TAB IR 10 MG PO (21:24)
[2022-03-04 21:28] VITALS: BP 134/76; PULSE 90; RESP 16; TEMP 37; O2SAT 96
[2022-03-04] MEDS: HYDROmorphone HCL INJ (*CRX) 1 MG/ML SYR 0.5 MG IV PUSH (23:59)
[2022-03-05 05:13] VITALS: O2SAT 96
[2022-03-05 05:22] VITALS: BP 126/74; PULSE 71; RESP 18; TEMP 36.5; O2SAT 96
[2022-03-05 06:09] LABS: Hematocrit 37.8 % (42.0-52.0); Hemoglobin 12.6 g/dL (14.0-18.0); Mean Corpuscular HGB Conc 33.3 g/dl (32-36); Mean Corpuscular Hemoglobin 27.9 pg (26-34); Mean Corpuscular Volume 83.6 fl (80-100); Mean Platelet Volume 10.8 fl (7.4-10.4); Platelet Count Result 163 k/mm3 (150-375); Red Blood Count 4.52 M/mm3 (4.6-6.20); Red Cell Distribution Width 13.9 % (11.5-14.5); White Blood Count 7.2 K/mm3 (4.5-10.0)
[2022-03-05 06:18] LABS: Anion Gap 7 mmol/L (8-16); Blood Urea Nitrogen 11 mg/dL (9-20); Calcium 8.5 mg/dL (8.4-10.2); Carbon Dioxide 27 mmol/L (22-30); Chloride 99 mmol/L (98-107); Estimated CRCL calculation 122 ml/min; Estimated Glomerular Filt Rate > 60; Glucose 97 mg/dL (65-110); Potassium 3.9 mmol/L (3.4-5.0); Sodium 133 mmol/L (137-145)
[2022-03-05] MEDS: ENOXAPARIN 40 MG/0.4 ML SYRINGE SUB-Q (08:21)
[2022-03-05] MEDS: ONDANSETRON INJ 4 MG/2 ML VIAL IV PUSH (08:24)
--- NOTE | 2022-03-05 09:39 | PCNFU ---
Nutrition Follow-Up Complete: Altered GI function as related to diverticulitis as evidenced by clear liquids goal: Meet estimated nutritional needs Patient is progressing towards goal. We will continue current goal. Pt current nutrition is Soft Bite Sized, Level 6. Last recorded weight is 110.9 kg, down from 116.2 kg on admit. Bowel Motility:+BM reported 03/04 Labs Reviewed:Na 133, Hct 37.8,Hgb 12.6 Meds Noted:Roxicodone,Zofran,Lovenox Skin: WNL Additional Notes: Diet order has advanced to a soft and bite sized, Level 6 diet. Oral Intake has been 25-75% of meals. Diet supplements of Ensure Surgery continue BID providing an additional 330 kcals and 18 gms protein. Recommend diet order change to Panacea (low fiber diet). Monitoring: Will monitor every 5 days.
[2022-03-05] MEDS: HYDROmorphone HCL INJ (*CRX) 1 MG/ML SYR 0.5 MG IV PUSH (10:12)
[2022-03-05] MEDS: oxyCODONE HCL (*CRX) 5 MG TAB IR 10 MG PO ×2 (13:16→17:19)
[2022-03-05 14:00] VITALS: BP 126/73; PULSE 83; RESP 16; TEMP 37.2; O2SAT 97
--- NOTE | 2022-03-05 15:52 | PM.DS ---
DS: Admitting Diagnosis Discharge Date 03/05/2022 Admitting Diagnosis Diverticulitis of large intestine with perforation and abscess without bleeding, Obesity DS: Discharge Diagnosis Discharge Diagnosis (1) Diverticulitis of intestine with perforation and abscess without bleeding: Qualifiers: Diverticulitis site: large intestine Qualified Code(s): K57.20 - Diverticulitis of large intestine with perforation and abscess without bleeding Code(s): K57.80 - Diverticulitis of intestine, part unspecified, with perforation and abscess without bleeding Status: Acute (2) Obesity (BMI 30-39.9): Code(s): E66.9 - Obesity, unspecified Status: Acute DS: Summary Hospital Course Reason for hospitalization: Diverticulitis Hospital Course: This is a 36-year-old man who presented for sigmoid colectomy for recurrent diverticulitis. He had an episode of uncomplicated diverticulitis in 2020. This resolved with oral antibiotics. He then presented with another episode of acute diverticulitis in November of 2021 and this developed an to diverticulitis with perforation and abscess. He was able to be treated with IV antibiotics and eventually was transitioned into oral antibiotics and discharged home. He was scheduled for a colonoscopy on 01/28/2022, but that week before he developed recurrent symptoms and had to be hospitalized for recurrent diverticulitis. Discussions were then made with the patient about long-term treatment options and decision was made to continue oral antibiotics at home for 4 weeks and then proceed with hand assisted laparoscopic sigmoid colectomy, possible open. He underwent surgery on 03/01/2022. He was then admitted to the hospital postoperatively for recovery. Procedure was done in the afternoon, therefore he was kept on clear liquid diet postoperatively and on postop day 1. On postop day 2 he was advanced to a full liquid diet. He was overall remaining stable but was still having difficulty with pain control initially. Most of his pain seemed related to the pneumoperitoneum as he was having a lot of right shoulder pain. Eventually this pain dissipated and his pain was better controlled with oxycodone. His bowels began moving on postoperative day 3. He was having some increasing pain due to how frequently he was having to get up to use the restroom. On postop day 4 he was advanced to a soft regular diet and was tolerating this well. His pain was better controlled and he was remaining hemodynamically stable. Patient was then discharged on 03/05/2022. His pathology showed evidence of perforated diverticulitis with abscess. There was no evidence of neoplasm. Status at Discharge Functional status at discharge: independent ambulation Overall status at discharge: patient is progressing back to baseline Time Spent with Patient Time attestation: Total time spent providing and/or coordinating discharge services: Time spent: Less than 30 minutes Exam Const: General: cooperative and no acute distress Orientation/consciousness: patient oriented x3 Resp: Effort & Inspection: normal respiratory effort Auscultation: clear to auscultation bilaterally Cardio: Rate: regular rate Rhythm: regular rhythm Heart sounds: S1 normal heart sound present and S2 normal heart sound present GI: Inspection: non-distended and incision ( Intact with glue) GI Palp: Yes Soft to palpation, Yes Tenderness to palpation present (GI) ( incisional) and No Guarding due to palpation present (GI) Auscultation: normal bowel sounds DS: Data Data Completed and Pending Completed studies during hospitalization: Pending at discharge 03/01/22 14:12 Surgical [PTH] Routine Labs on day of discharge: Labs from last 24 hours 03/05/22 03/05/22 05:26 05:26 WBC 7.2 RBC 4.52 L Hgb 12.6 L Hct 37.8 L MCV 83.6 MCH 27.9 MCHC 33.3 RDW 13.9 Plt Count 163 MPV 10.8 H Sodium 133 L Potassium 3.9 Chloride 99
== END 2022-03-05 17:47 | disposition home or self-care (01) | DRG 331 ==
LOC: ANH3MED 17:24
PROVIDERS: Admitting Provider Surgery; PCP Family Medicine; Visit Provider Surgery
PROC: 0D1E4Z4 Bypass Large Intestine to Cutaneous, Percutaneous Endoscopic Approach (ICD-10-PCS; principal; 2022-03-01 12:00)
DX: K57.20 Diverticulitis of large intestine with perforation and abscess without bleeding (principal); E66.9 Obesity, unspecified; K66.8 Other specified disorders of peritoneum; Z68.36 Body mass index [BMI] 36.0-36.9, adult; Z87.891 Personal history of nicotine dependence
CPT/HCPCS: 36415; 80048; 85025; 85027; 88307; A9270; C1729; C9290; J0690; J1100; J1170; J1200; J1650; J1885; J2250; J2405; J2704; J2710; J3010; J7030; J7120

== ENCOUNTER 2023-07-25 10:46 | Outpatient (CLI) | payer OTHER, SELFPAY ==
[2023-07-25 19:33] LABS: Hematocrit 46.6 % (42.0-52.0); Hemoglobin 15.2 g/dL (14.0-18.0); Mean Corpuscular HGB Conc 32.6 g/dl (32-36); Mean Corpuscular Hemoglobin 29.3 pg (26-34); Mean Corpuscular Volume 89.8 fl (80-100); Platelet Count Result 169 k/mm3 (150-375); Red Blood Count 5.19 M/mm3 (4.6-6.20); White Blood Count 6.3 K/mm3 (4.5-10.0)
[2023-07-25 19:48] LABS: LDL Cholesterol Direct 67 mg/dL
[2023-07-25 19:52] LABS: Alanine Aminotransferase 29 U/L (6-50); Albumin Level 4.5 g/dL (3.5-5.1); Alkaline Phosphatase 120 U/L (38-126); Anion Gap 6 mmol/L (8-16); Aspartate Amino Transferase 52 U/L (17-59); Bilirubin,Total 1.1 mg/dL (0.2-1.3); Blood Urea Nitrogen 14 mg/dL (9-20); Calcium 9.3 mg/dL (8.4-10.2); Carbon Dioxide 27 mmol/L (22-30); Chloride 104 mmol/L (98-107); Cholesterol 199 mg/dL (0-200); Estimated Glomerular Filt Rate > 60; Glucose 109 mg/dL (65-110); Potassium 4.1 mmol/L (3.4-5.0); Sodium 137 mmol/L (137-145)
[2023-07-25 20:02] LABS: Triglycerides 713 mg/dL (<150)
== END 2023-07-25 10:47 | disposition home or self-care (01) ==
PROVIDERS: PCP Family Medicine; Visit Provider Nurse Practitioner Adult Health
DX: Z13.9 Encounter for screening, unspecified (principal)
CPT/HCPCS: 36415; 80053; 80061; 85027